=== PATIENT | male | born 1940 | race Caucasian/White ===

== ENCOUNTER 2020-07-15 10:18 | Outpatient (CLI) | payer MEDICARE, SELFPAY ==
--- NOTE | ~2020-07-15 | XR_ITS ---
XR hip RT 2V w AP pelvis DATE: 07/15/2020 10:39 INDICATION: Right hip posterior pain for 2 weeks. No injury. TECHNIQUE: AP pelvis. AP and lateral views of right hip. COMPARISON: None FINDINGS: Plate and screws are noted along the lower lumbar spine. There is degenerative disease at L 4-5 and L5-S1. Moderate osteopenia. The pubic symphysis and sacroiliac joints are intact. Hip joint spaces are symmetric and relatively p reserved. No pelvic fracture or bone destruction. No fracture or dislocation, avascular necrosis or bone destru ction of the right hip. IMPRESSION: Bilateral Steffee plates and screws in the lower lumbar spine Degenerative disease at L4-5 and L5-S1 Moderate osteopenia Reviewed, dictated and finalized at location A.
== END 2020-07-15 10:19 | disposition home or self-care (01) ==
PROVIDERS: PCP Family Medicine; Visit Provider Family Medicine
DX: M25.551 Pain in right hip (principal); Z96.7 Presence of other bone and tendon implants; M51.36 Other intervertebral disc degeneration, lumbar region; M85.88 Other specified disorders of bone density and structure, other site
CPT/HCPCS: 73502

== ENCOUNTER → 2020-08-04 10:47 | Outpatient (CLI) | payer MEDICARE, SELFPAY ==
--- NOTE | ~2020-08-04 | MR_ITS ---
EXAMINATION: MR hip RT wo con DATE: 08/04/2020 12:07 INDICATION: Right hip pain TECHNIQUE: Magnetic resonance imaging (MRI) of the right hip was performed without intravenous contr ast. Sequences included full-field axial PD-weighted FS FSE and T1-weighted FSE, coronal of the pelvi s with PD-weighted FS FSE, small field of view of the right hip with axial PD-weighted FS FSE, sagit diane PD-weighted FS FSE and coronal PD weighted FS FSE. Additional radial T1-weighted FGR oriented ort hogonal to the acetabular rim were obtained for evaluation of the labrum. COMPARISON: 07/15/2020 FINDINGS: Bones/labrum/cartilage: Alignment is normal. Metallic magnetic field artifact on either side of the lumbar spine correspondin g to bilateral plate and pedicle screw fixations for posterior spinal fusion. No fracture or patholog ic marrow replacing process. Polyarticular osteoarthritis, mild at the bilateral sacroiliac joints, m ild to moderate at the left hip with mild subarticular cystic change along the superolateral aspect o f the left acetabulum and severe at the right hip where there is full/near full-thickness chondral ul ceration with subarticular edema at the superolateral and more prominently anterosuperior aspect of t he femoral head and along the superolateral to anterosuperior aspect of the acetabulum with prominent subarticular cystic changes. There is thickening and amorphous increased signal throughout the anter ior to posterior superior right acetabular labrum consistent with labral degeneration. Fluid: Small to moderate sized right hip joint effusion and/or synovitis. There is a multilobulated para lab ral cyst along the anterosuperior rim of the acetabulum. Soft tissues: Normal and symmetric muscle bulk and signal in the pelvis and visualized proximal thighs. The iliopso as, gluteal and proximal hamstring tendons are normal. Limited evaluation of visceral organs of the p mary is unremarkable. No pathologically enlarged pelvic/inguinal lymphadenopathy. IMPRESSION: 1. 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 Reviewed, dictated and finalized at location A.
== END ==
PROVIDERS: PCP Family Medicine; Visit Provider Family Medicine
DX: M25.551 Pain in right hip (principal); M16.11 Unilateral primary osteoarthritis, right hip
CPT/HCPCS: 73721

== ENCOUNTER → 2020-08-09 14:21 | Outpatient (CLI) | payer MEDICARE, SELFPAY ==
--- NOTE | ~2020-08-09 | MR_ITS ---
EXAMINATION: MR lumbar spine wo con DATE: 08/09/2020 15:22 INDICATION: Lumbar radiculopathy TECHNIQUE: Magnetic resonance imaging (MRI) of the lumbar spine was performed without intravenous con trast. Sequences included sagittal T2-weighted FSE, sagittal T2-weighted FS FSE, sagittal T1-weighted FSE, and axial T2-weighted FSE. COMPARISON: CT abdomen and pelvis dated 09/18/2008 FINDINGS: L3 and L4 laminectomies and L3-L5 posterior spinal fusion with bilateral vertical akiko and pedicle scr ew fixation at each level. 2 mm anterolisthesis L3 on L4. Vertebral body heights are normal. Normal marrow signal. Severe disc height loss at L2-L3 and L4-L5. Moderate disc height loss at L3-L4. Mild t o moderate disc height loss at T11-T12 and T12-L1. Mild disc height loss at L1-L2. There are annular fissures from T12-L1 through L5-S1 excepting L3-L4. The conus medullaris terminates at T12-L1. There is normal signal in the caudal spinal cord. Paravertebral soft tissues are unremarkable. The followin g disc levels are specifically discussed: T12-L1: Disc is bulging with superimposed right subarticular zone disc extrusion which narrows the ri ght lateral recess. There is hypertrophy of the ligamentum flavum. There is moderate bilateral facet joint osteoarthritis. There is moderate bilateral neural foraminal stenosis. There is moderate to se jesus central canal stenosis. L1-L2: Disc is bulging. There is hypertrophy of the ligamentum flavum. There is moderate left and mo derate to severe right facet joint osteoarthritis. There is moderate bilateral neural foraminal steno sis. There is severe central canal stenosis. L2-L3: Disc is bulging. There is hypertrophy of the ligamentum flavum. There is moderate bilateral fa cet joint osteoarthritis. There is moderate bilateral neural foraminal stenosis. There is severe cent ral canal stenosis. L3-L4: Disc is mildly bulging. Posterior decompression with L3 and L4 laminectomies. Metallic magneti c field artifact from vertical akiko and pedicle screw fixation for posterior spinal fusion obscures th e presumably fused bilateral facet joints and distorts the bilateral neural foramina which both appea r mild to moderately narrowed. There is no central canal stenosis. L4-L5: Disc is mildly bulging. Posterior decompression with L4 laminectomy. Metallic magnetic field a rtifact from vertical akiko and pedicle screw fixation for posterior spinal fusion obscures the presuma monse fused bilateral facet joints and distorts the bilateral neural foramina. There appears be moderat e left and mild to moderate right neural foraminal stenosis. L5-S1: Disc is bulging. There is moderate bilateral facet joint osteoarthritis. There is a moderate b ilateral neural foraminal stenosis although again evaluation is somewhat limited by distortion from m agnetic field artifact related to the L5 pedicle screws. There is no central canal stenosis. IMPRESSION: 1. Severe lumbar spondylosis most notable for severe central canal stenosis at L1-L2 and L2-L3 and mo derate to severe stenosis at T12-L1. 2. L3 and L4 laminectomies and L3-L5 posterior spinal fusion with bilateral vertical akiko and pedicle screw fixation. Reviewed, dictated and finalized at location A. IMPRESSION: 1. Severe lumbar spondylosis most notable for severe central canal stenosis at L1-L2 and L2-L3 and moderate to severe stenosis at T12-L1. 2. L3 and L4 laminectomies and L3-L5 posterior spinal fusion with bilateral ardha tical akiko and pedicle screw fixation.
== END ==
PROVIDERS: PCP Family Medicine; Visit Provider Nurse Practitioner Adult Health
DX: M47.25 Other spondylosis with radiculopathy, thoracolumbar region (principal); M48.05 Spinal stenosis, thoracolumbar region
CPT/HCPCS: 72148

== ENCOUNTER 2021-03-03 09:47 | Outpatient (CLI) | payer MEDICARE, SELFPAY ==
--- NOTE | 2021-03-03 11:00 | ECG_ITS ---
Measurements Intervals [place] Rate: 65 P: 36 IL: 179 QRS: -83 QRSD: 165 T: -8 QT: 426 QTc: 445 Interpretive Statements SINUS RHYTHM LEFT AXIS DEVIATION RIGHT BUNDLE BRANCH BLOCK BASELINE ARTIFACT- I, II, III, AVR, AVL, AVF, V1-V6 ABNORMAL ECG Electronically Signed On 03-03-2021 11:36:52 CDT by Mino Bell D.O.
[2021-03-03 11:36] LABS: Basophils Absolute Auto 0.1 K/mm3 (0.0-0.1); Basophils Percent Auto 0.8 % (0.2-1.2); Eosinophils Absolute Auto 0.2 K/mm3 (0-0.3); Eosinophils Percent Auto 2.4 % (0-4.4); Hematocrit 48.6 % (42.0-52.0); Hemoglobin 16.5 g/dL (14.0-18.0); Immature Granulocyte Absolute 0.03 K/mm3 (0.00-0.031); Immature Granulocyte Percent A 0.5 % (0-0.5); Lymphocytes Absolute Auto 1.71 K/mm3 (0.9-3.2); Lymphocytes Percent Auto 25.9 % (18.3-44.2); Mean Corpuscular Hemoglobin 32.2 pg (26-34); Mean Corpuscular Volume 94.7 fl (80-100); Monocytes Absolute Auto 0.6 K/mm3 (0.1-0.6); Monocytes Percent Auto 8.5 % (2.6-8.5); Neutrophils Absolute Auto 4.1 K/mm3 (1.3-6.7); Neutrophils Percent Auto 61.9 % (45.5-73.1); Platelet Count Result 182 k/mm3 (150-375); Red Blood Count 5.13 M/mm3 (4.6-6.20); Red Cell Distribution Width 12.7 % (11.5-14.5); White Blood Count 6.6 K/mm3 (4.5-10.0)
[2021-03-03 11:44] LABS: Urine Cotinine NEGATIVE
[2021-03-03 11:45] LABS: Add Urine Microscopic? YES; Appearance Urine Clear (Clear); Bilirubin Urine Negative (Negative); Blood Urine 2+ (Negative); Color Urine Yellow (Yellow); Glucose Urine UA Negative (Negative); Ketones Urine Negative (Negative); Leukocyte Esterase Ur Negative LEU/UL (Negative); Mucus Urine Rare /lpf; Nitrate Urine Negative (Negative); Protein Urine Negative (Negative); RBC Urine >75 /hpf (0-2); Specific Grav Ur 1.019 (1.001-1.035); WBC Urine 0-3 /hpf
[2021-03-03 11:46] LABS: Albumin Level 4.4 g/dL (3.5-5.1); Anion Gap 8 mmol/L (8-16); Blood Urea Nitrogen 26 mg/dL (9-20); Carbon Dioxide 30 mmol/L (22-30); Chloride 101 mmol/L (98-107); Estimated Glomerular Filt Rate > 60; Glucose 156 mg/dL (75-110); Potassium 4.1 mmol/L (3.4-5.0); Sodium 139 mmol/L (137-145)
[2021-03-03 11:50] LABS: INR 0.9; Prothrombin Time 12.7 Seconds (11.1-14.7)
[2021-03-03 11:52] LABS: Partial Thromboplastin Time 32.5 SECONDS (22.3-36.8)
== END 2021-03-03 09:48 | disposition home or self-care (01) ==
LOC: ANHSURGERY 09:52
PROVIDERS: PCP Family Medicine; Visit Provider Orthopaedic Surgery
DX: M16.11 Unilateral primary osteoarthritis, right hip (principal); Z01.818 Encounter for other preprocedural examination; I45.10 Unspecified right bundle-branch block
CPT/HCPCS: 80048; 80307; 81001; 82040; 83036; 85025; 85610; 85730; 86850; 86900; 86901; 87081; 93005

== ENCOUNTER 2021-03-10 09:53 | Outpatient (CLI) | payer MEDICARE, SELFPAY ==
--- NOTE | ~2021-03-10 | NM_ITS ---
EXAMINATION: NM eric stress w perfusion EXAM DATE: 03/10/2021 13:18 INDICATION: Abnormal EKG. TECHNIQUE: Rest images were obtained following intravenous administration of 9.7 mCi Tc99m tetrofosmi n (Myoview). The patient was infused intravenously with Lexiscan (regadenoson). Then, 28.8 mCi Tc99m tetrofosmin (Myoview) was administered intravenously, and stress images were obtained. Data was recon structed into short axis and horizontal and vertical long axis SPECT images. Gated SPECT images were also obtained. There is no prior study for comparison. FINDINGS: There is no definite reversible or fixed perfusion abnormality to suggest ischemia or infar ction. There is normal left ventricular wall motion. End diastolic volume: 75 mL. End-systolic volume: 23 mL. Left ventricular ejection fraction: 69%. IMPRESSION: 1. Normal myocardial perfusion at rest and during stress. 2. Left ventricular ejection fraction measuring 69%. Reviewed, dictated and finalized at location B.
--- NOTE | 2021-03-10 10:23 | EST_ITS ---
Patient Info Name: Saravanan Ralph Age: 80 years : 1940 Gender: Male Ht: 67 in Wt: 212 lbs BSA: 2.17 m2 Exam Date: 03/10/2021 11:59 AM Exam Location: [facility] Stress Patient Status: Outpatient Admit Date: 03/10/2021 Staff Ordering Physician: Mino Bell DO Attending Provider: Mino Bell DO Exercise Technologist: Natalia Fraire RDCS Exercise Physician: Mino Bell DO Exam Type: CA stress eric w NM Study Info Indications R94.31 - Abnormal electrocardiogram ECG EKG A regadenoson stress test was performed. Summary 1. 1. Negative lexiscan stress test for ischemic ST changes by ECG criteria. 2. 2. Stable hemodynamics throughout the test. 3. 3. Nuclear scan to follow and will be reported separately. Please correlate with it. 4. 4. Patient informed of the above results. Protocol: Lexiscan Stress ECG Details Stage: REST Duration (min): 5 min : 49 sec HR (bpm): 62 SBP (mmHg): 132 DBP (mmHg): 84 Stage: REST Duration (min): 14 min : 0 sec HR (bpm): 64 SBP (mmHg): 132 DBP (mmHg): 84 Stage: STAGE 1 Duration (min): 1 min : 0 sec HR (bpm): 68 SBP (mmHg): 139 DBP (mmHg): 90 Stage: RECOVERY Duration (min): 1 min : 0 sec HR (bpm): 89 SBP (mmHg): 126 DBP (mmHg): 79 Stage: RECOVERY Duration (min): 2 min : 0 sec HR (bpm): 90 SBP (mmHg): 126 DBP (mmHg): 79 Stage: RECOVERY Duration (min): 3 min : 0 sec HR (bpm): 80 SBP (mmHg): 129 DBP (mmHg): 79 Stage: RECOVERY Duration (min): 4 min : 0 sec HR (bpm): 78 SBP (mmHg): 129 DBP (mmHg): 79 Stage: RECOVERY Duration (min): 5 min : 0 sec HR (bpm): 74 SBP (mmHg): 118 DBP (mmHg): 77 Stage: RECOVERY Duration (min): 6 min : 0 sec HR (bpm): 71 SBP (mmHg): 118 DBP (mmHg): 77 Stage: RECOVERY Duration (min): 6 min : 58 sec HR (bpm): 74 SBP (mmHg): 125 DBP (mmHg): 75 Rest HR: 64 bpm Peak HR: 91 bpm Rest Sys BP: 132 mmHg Peak Sys BP: 139 mmHg Max Pred HR: 142 bpm % Max Pred HR: 64 % Target HR: 121 bpm Max RPP: 12,649 bpm*mmHg Termination Reason: Completed protocol Cardiac Symptoms: Shortness of breath Total Time: 1 min : 0 sec Rest Kwon BP: 84 mmHg Peak Kwon BP: 90 mmHg Total Dose: 0.4 mg Resting ECG Sinus rhythm, RBBB, LAFB. Stress ECG No ST changes. Arrhythmias None. Report Signatures
== END 2021-03-10 09:54 | disposition home or self-care (01) ==
PROVIDERS: PCP Family Medicine; Visit Provider Internal Medicine Cardiovascular Disease
DX: Z01.810 Encounter for preprocedural cardiovascular examination (principal); R94.31 Abnormal electrocardiogram [ECG] [EKG]
CPT/HCPCS: 78452; 93017; A9502; J2785

== ENCOUNTER → 2021-03-12 01:02 | Outpatient (CLI) | payer MEDICARE, SELFPAY ==
[2021-03-13 14:52] LABS: SARS-CoV-2 RNA PCR Negative
== END ==
PROVIDERS: PCP Family Medicine; Visit Provider Orthopaedic Surgery
DX: Z01.812 Encounter for preprocedural laboratory examination (principal); Z20.822 Contact with and (suspected) exposure to COVID-19
CPT/HCPCS: C9803; U0003; U0005

== ENCOUNTER 2021-03-17 18:36 | Observation (INO) | payer MEDICARE, SELFPAY ==
[2021-03-03 10:10] VITALS: BMI 26.7
[2021-03-03 10:58] VITALS: BP 140/83; PULSE 69; RESP 16; TEMP 36.7; O2SAT 98
[2021-03-16] VITALS (13 sets, daily range): BP systolic 98–156; BP diastolic 56–88; PULSE 61–99; RESP 11–16; TEMP 35.6–36.6; O2SAT 95–100; BMI 26.5
[2021-03-16] MEDS: ACETAMINOPHEN 500 MG TABLET 1000 MG PO (06:53)
[2021-03-16 07:11] LABS: Glucose Point of Care 140 (65-105)
--- NOTE | 2021-03-16 07:11 | WPDANESEPPF ---
Anes - Initial Pre Proc Eval Procedure: Operation Date: 03/16/21 07:30 Proposed Procedures p Right Total Hip Arthroplasty - Chris Presley MD Date/Time: 03/16/21 07:11 Surgeon: Chris Presley MD Pre Op Diagnosis: Right Hip DJD Patient Data Age: 80 Gender: M Height: 6 ft 4 in Weight: 98.8 kg Last Vital Signs Temp 36.6 C 03/16/21 06:38 Pulse 99 03/16/21 06:38 Resp 16 03/16/21 06:38 BP 156/80 H 03/16/21 06:38 Pulse Ox 97 03/16/21 06:38 Allergies Allergy/AdvReac Type Severity Reaction Status Date / Time No Known Allergies Allergy Mild Verified 03/16/21 06:47 Home Medications Medication Instructions Recorded Confirmed Type potassium citrate 10 mEq (1,080 10 meq PO TID 10/01/19 03/16/21 History mg) tablet,extended release amlodipine 10 mg tablet 10 mg PO DAILY 07/14/20 03/16/21 History enalapril maleate 20 mg tablet 20 mg PO DAILY #90 tablet 07/14/20 03/16/21 Rx multivitamin 1 cap PO DAILY 09/13/20 03/16/21 History chlorhexidine gluconate 4 % 1 applic TOPICAL ONCE #237 ml 01/17/21 03/16/21 Rx topical liquid gabapentin 300 mg capsule 300 mg PO TID #270 cap 01/25/21 03/16/21 Rx acetaminophen [Acetaminophen Extra 1,000 mg PO PRN PRN 03/03/21 03/16/21 History Strength] amitriptyline 10 mg PO HS 03/03/21 03/16/21 History atorvastatin 80 mg PO HS 03/03/21 03/16/21 History fluticasone propionate [Allergy 2 spray INTRANASAL PRN PRN 03/03/21 03/16/21 History Relief (fluticasone)] meloxicam 15 mg PO PRN PRN 03/03/21 03/16/21 History metformin 2,000 mg PO QPM 03/03/21 03/16/21 History metoprolol succinate 150 mg PO HS 03/03/21 03/16/21 History tamsulosin 0.4 mg PO HS 03/03/21 03/16/21 History Laboratory Tests 03/16/21 07:06 POC Capillary Glucose 140 mg/dl H mg/dl (65-105) Patient hx anesthesia problems: none Family hx anesthesia problems: none PMFSH Past Medical History Medical History Abnormal EKG Acute right hip pain 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 urinary tract symptoms COVID-19 (06/10/20) Diabetes Diverticulosis Encounter for screening laboratory testing for COVID-19 virus High cholesterol Hypertension Lab test positive for detection of COVID-19 virus Neoplasm of skin of cheek Seborrheic dermatitis Skin cancer Vision changes Surgical History Surgical History History of cataract surgery History of fusion of cervical spine History of lumbar fusion Family History Family History Mother Patient's mother is , Onset Age: 89 Father Cerebrovascular accident, Onset Age: 73 Other Diabetes mellitus Heart disease Hypertension Social History Social History Smoking packs per day: 1 Smoking cigarettes per day: 20.0 Years smoked: 15 Smoking pack-years: 15.00 Smoking status: Former smoker Tobacco type: cigarettes Smoking end date: 03/05/70 Additional smoking assessment comments: DENIES ANY FORM OF TOBACCO USE Alcohol intake: never Substance use: never Substance use type: does not use Living arrangements: with family Spiritual care concerns: No Anes - Eval Final PreProcedure Day of Procedure 03/16/21 07:11 Patient weight: normal Heart: regular rate and rhythm Lungs: clear to auscultation Airway: Mallampati scale class II Neurological: alert and oriented Last oral intake: >/= 8 hours ASA classification: III Emergent: no Anesthetic plan: proceed Anesthesia type and monitoring: general ETT and standard monitoring Informed Consent: The patient's anesthetic plan and its attendant risks and benefits were discussed with the patient/family/POA. Questions were solicited and answers provided to the satisfaction of the patient/family/POA.
--- NOTE | 2021-03-16 07:20 | WPDHPUPDATE1 ---
History and Physical Update Update Date/Time: 03/16/21 07:20 History and Physical has been reviewed, including an updated exam of the patient. There are NO changes in the patient's condition. Risks, benefits, and alternatives have been discussed and questions answered. Patient agrees to proceed with procedure.
[2021-03-16] MEDS: TRANEXAMIC ACID 1,000MG/ISO100 1,000 MG/100 ML BAG 200 MG IVPB (07:25)
[2021-03-16] MEDS: LACTATED RINGERS 1,000 ML 30 ML IV CONT ×2 (07:30→11:27)
[2021-03-16] MEDS: ceFAZolin 2 GM/D5W 50 ML 2 GM/50 ML BAG IVPB ×3 (07:32→22:53)
--- NOTE | 2021-03-16 11:29 | PM.PROC ---
Procedure Note - Detailed Date of procedure: 03/16/21 Pre-op diagnosis: Right Hip DJD RIGHT HIP DJD Post-op diagnosis: same Procedure performed: R MARY Description of procedure: THE PATIENT WAS TAKEN TO THE OPERATING ROOM IN STABLE CONDITION. HE WAS PLACED IN THE LATERAL DECUBITUS AND THE RIGHT LOWER EXTREMITY WAS PREPPED AND DRAPED IN THE STERILE FASHION. INCISION WAS MADE IN THE POSTERIOR LATERAL SIDE OF THE HIP, DOWN TO THE FASCIA LAYER. THE FASCIA WAS INCISED. THE HIP WAS EXPOSED. THE SHORT EXTERNAL ROTATORS WERE EXPOSED AND THE SCIATIC NERVE WAS VISUALIZED. THE CAPSULE WAS INCISED EXPOSING THE HIP JOINT. THE HIP WAS DISLOCATED. AN OSTEOTOMY WAS MADE TO THE FEMORAL NECK ABOUT 1 CM PROXIMAL TO THE LESSER TROCHANTER. THE ACETABULUM WAS EXPOSED. THERE WAS SEVERE DJD SEEN. THE ACETABULUM WAS REAMED TO 53 MM. A 53 MM TRIAL WAS PLACED IN 35 DEG OF ABDUCTION AND ANTEVERSION WAS IN ALIGNMENT WITH THE TRANS ACETABULAR LIGAMENT. THE FIT WAS EXCELLENT. THE TRIAL WAS REMOVED. MULTIPLE BONE CYSTS WERE CURETTED AND FILLED WITH BONE GRAFT. THEN REVERSE REAMING WAS PREFORMED UNTIL THE GRAFT WAS FLUSH WITH THE ACETABULUM. A 54 MM BIOMET G7 COMPONENT WAS THEN TAPPED IN TO PLACE IN 35 DEG OF ABDUCTION AND ANTEVERSION IN ALIGNMENT WITH THE TRANSVERSE ACETABULAR LIGAMENT. THE ACETABULAR LINER WAS PLACED AND CHECKED FOR STABILITY. NEXT THE FEMUR WAS PREPARED WITH INITIAL CANAL FINDER THEN SEQUENTIAL REAMING AND THEN BROACHING TILL AN 11 BIMETRIC BROACH FIT WELL IN 15 DEG OF ANTE VERSION. A +9 HIGH OFFSET NECK WITH 36 MM HEAD TRIAL WAS PLACED. THE ENRIQUE TEST WAS EXCELLENT AND THE STABILITY IN FLEXION AND ROTATION WAS EXCELLENT. LEG LENGTHS WERE GROSSLY EQUAL. TRIALS WERE REMOVED. A BIOMET BIMETRIC 11 STEM WAS PLACED WITH A STANDARD OFFSET NECK. THE FIT WAS EXCELLENT IN 15 DEG OF ANTEVERSION. A +9 COBALT CHROME 36 MM FEMORAL HEAD WAS PLACED. THE HIP WAS TRIALED AND THE STABILITY WAS EXCELLENT WERE THE LEG LENGTHS AND THE SCHUK TEST. THE WOUND WAS IRRIGATED WITH STERILE BETADINE AND WATER FOR 3 MIN. THEN WASHED AGAIN. THE CAPSULE AND THE EXTERNAL ROTATORS WERE APPROXIMATED WITH NUMBER 1 VICRYL. THE FASCIA WITH No 2 QUIL AND THE SUB CUTANEOUS LAYER WITH 2-0 ABSORBABLE SUTURE WITH A RUNNING 3-0 SUBCUTICULAR LAYER WELL. DERMABOND WAS PLACED AND STERILE DRESSING WAS APPLIED. PATIENT WAS PLACED BACK ON TO THE SUPINE POSITION AND WAS EXTUBATED. Anesthesia: GETA Surgeon: Chris Presley MD Estimated blood loss (mL): 450 Drains: No Complications: No immediate complications Condition: stable Disposition: PACU
--- NOTE | 2021-03-16 12:18 | SUR.PHASEI ---
121 sbar faxed floor notified
--- NOTE | 2021-03-16 12:50 | ADMGEN ---
This patient, Saravanan Ralph, was admitted to Medical Room 243-. Patient/family oriented to hospital policies and general routines including ID bracelet, bed and alarms, visiting hours, pain management, procedures, bathroom and other care routines, personal items, smoking policy, room service/diet, and visiting hours. Information on how to activate the Rapid Response Team has been discussed. Patient/Family are encouraged to report perceived risks to care and to ask questions if they do not understand what they are told or what they should do.
[2021-03-16 14:16] LABS: Glucose Point of Care 174 (65-105)
[2021-03-16] MEDS: HYDROcodone/acetaminophen (*CRX) 5-325 MG TABLET 1 TAB PO ×3 (14:21→22:53)
[2021-03-16] MEDS: POTASSIUM CITRATE 5 MEQ TAB CR 10 MEQ PO ×2 (14:22→17:55)
[2021-03-16] MEDS: GABAPENTIN 300 MG CAPSULE PO ×2 (14:22→17:55)
[2021-03-16 15:18] LABS: Hematocrit 42.2 % (42.0-52.0); Hemoglobin 13.8 g/dL (14.0-18.0)
[2021-03-16 15:36] LABS: Glucose Point of Care 183 (65-105)
--- NOTE | 2021-03-16 17:22 | P.DS_ITS ---
DS: Summary Time Spent with Patient Time attestation: Total time spent providing and/or coordinating discharge ser vices: DS: Data Data Completed and Pending Labs on day of discharge: Labs from last 24 hours 03/16/21 03/16/21 03/16/21 14:48 13:11 11:43 Hgb 13.8 L Hct 42.2 POC Capillary Glucose 174 H 183 H 03/16/21 07:06 Hgb Hct POC Capillary Glucose 140 H Discharge Plan Discharge Discharge Medications: No Action amlodipine 10 mg tablet 10 mg PO DAILY RF: 0 enalapril maleate 20 mg tablet 20 mg PO DAILY Qty: 90 RF: 3 multivitamin Capsule 1 cap PO DAILY RF: 0 atorvastatin 80 mg tablet 80 mg PO HS RF: 0 meloxicam 15 mg tablet 15 mg PO PRN PRN (Reason: pain) RF: 0 metoprolol succinate 100 mg tablet extended release 24 hr 150 mg PO HS RF: 0 tamsulosin 0.4 mg capsule 0.4 mg PO HS RF: 0 amitriptyline 10 mg tablet 10 mg PO HS RF: 0 fluticasone propionate [Allergy Relief (fluticasone)] 50 mcg/actuation spray,suspension 2 spray intranasal PRN PRN (Reason: Allergy Symptoms) RF: 0 metformin 500 mg tablet extended release 24 hr 2,000 mg PO QPM RF: 0 acetaminophen [Acetaminophen Extra Strength] 500 mg Tablet 1,000 mg PO PRN PRN (Reason: Pain) RF: 0 potassium citrate 10 mEq (1,080 mg) tablet extended release 10 meq PO TID RF: 0 chlorhexidine gluconate [Hibiclens] 4 % liquid 1 applic topical ONCE Qty: 237 RF: 0 gabapentin 300 mg capsule 300 mg PO TID Qty: 270 RF: 3 Attending physician on admission: Chris Presley
--- NOTE | 2021-03-16 17:23 | PM.IMCN ---
Assessment and Plan Assessment and plan (1) Abnormal EKG: Code(s): R94.31 - Abnormal electrocardiogram [ECG] [EKG] Status: Acute Assessment and Plan: Status post stress test before admission continue to monitor (2) Degenerative joint disease (DJD) of hip: Qualifiers: Osteoarthritis type: primary Laterality: right Qualified Code(s): M16.11 - Unilateral primary osteoarthritis, right hip Code(s): M16.9 - Osteoarthritis of hip, unspecified Status: Acute Assessment and Plan: Status post total hip arthroplasty pain control DVT prophylaxis per surgery (3) 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 urinary tract symptoms: Code(s): N40.0 - Benign prostatic hyperplasia without lower urinary tract symptoms Status: Acute Assessment and Plan: Continue home medication (4) Essential (primary) hypertension: Code(s): I10 - Essential (primary) hypertension Status: Acute Assessment and Plan: Continue amlodipine (5) Mixed hyperlipidemia: Code(s): E78.2 - Mixed hyperlipidemia Status: Acute Assessment and Plan: Continue statin (6) Peripheral polyneuropathy: Code(s): G62.9 - Polyneuropathy, unspecified Status: Acute Assessment and Plan: On gabapentin (7) Type 2 diabetes mellitus without complication, without long-term current use of insulin: Code(s): E11.9 - Type 2 diabetes mellitus without complications Status: Acute Assessment and Plan: Insulin sliding scale recommend DC metformin as associated with increased risk of lactic acidosis after surgery HPI Data of Consult Consult date: 03/16/21 Requesting Physician: Chris Presley MD Primary Care Provider: Kings Díaz MD Consult Narrative Reason for consult: Hypertension diabetes mellitus Narrative: Saravanan Ralph is a 80 year old male with past medical history of hypertension on amlodipine diabetes mellitus type 2 on metformin hyperlipidemia on statin patient complained of right hip pain failed outpatient therapy presented to the hospital for total hip arthroplasty during pre-surgical evaluation patient had abnormal EKG stress test was done was negative patient was cleared for surgery patient denies chest pain shortness of breath fever or chills patient had total hip arthroplasty recovering well after procedure Review of Systems Review of Systems: All systems reviewed & are unremarkable except as noted in HPI and below PMFSH Past Medical History Medical History Abnormal EKG Acute right hip pain 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 urinary tract symptoms COVID-19 (06/10/20) Diabetes Diverticulosis Encounter for screening laboratory testing for COVID-19 virus High cholesterol Hypertension Lab test positive for detection of COVID-19 virus Neoplasm of skin of cheek Seborrheic dermatitis Skin cancer Vision changes Surgical History Surgical History History of cataract surgery History of fusion of cervical spine History of lumbar fusion Family History Family History Mother Patient's mother is , Onset Age: 89 Father Cerebrovascular accident, Onset Age: 73 Other Diabetes mellitus Heart disease Hypertension Social History Social History Smoking packs per day: 1 Smoking cigarettes per day: 20.0 Years smoked: 15 Smoking pack-years: 15.00 Smoking status: Former smoker Tobacco type: cigarettes Smoking end date: 03/09/70 Additional smoking assessment comments: DENIES ANY FORM OF TOBACCO USE Alcohol intake: former Substance use: never Substance use type: does not use Living arrangements: with family Gender identity (if verbalized by the patient): Mal
[2021-03-16 18:19] LABS: Glucose Point of Care 176 (65-105)
[2021-03-16 19:35] LABS: Alanine Aminotransferase 19 U/L (4-50); Albumin Level 3.4 g/dL (3.5-5.1); Alkaline Phosphatase 47 U/L (38-126); Anion Gap 10 mmol/L (8-16); Aspartate Amino Transferase 48 U/L (17-59); Bilirubin,Total 0.7 mg/dL (0.2-1.3); Blood Urea Nitrogen 25 mg/dL (9-20); Calcium 8.3 mg/dL (8.4-10.2); Carbon Dioxide 19 mmol/L (22-30); Chloride 106 mmol/L (98-107); Estimated CRCL calculation 68 ml/min; Estimated Glomerular Filt Rate > 60; Glucose 168 mg/dL (75-110); Potassium 4.8 mmol/L (3.4-5.0); Sodium 135 mmol/L (137-145)
[2021-03-16 20:45] LABS: Basophils Percent Auto 0.2 % (0.2-1.2); Hematocrit 39.7 % (42.0-52.0); Hemoglobin 13.6 g/dL (14.0-18.0); Immature Granulocyte Absolute 0.05 K/mm3 (0.00-0.031); Immature Granulocyte Percent A 0.4 % (0-0.5); Mean Corpuscular HGB Conc 34.3 g/dl (32-36); Mean Corpuscular Hemoglobin 32.7 pg (26-34); Mean Corpuscular Volume 95.4 fl (80-100); Monocytes Absolute Auto 1.6 K/mm3 (0.1-0.6); Monocytes Percent Auto 13.1 % (2.6-8.5); Neutrophils Absolute Auto 9.8 K/mm3 (1.3-6.7); Neutrophils Percent Auto 78.3 % (45.5-73.1); Platelet Count Result 154 k/mm3 (150-375); Red Blood Count 4.16 M/mm3 (4.6-6.20); Red Cell Distribution Width 12.8 % (11.5-14.5); White Blood Count 12.5 K/mm3 (4.5-10.0)
[2021-03-16] MEDS: TAMSULOSIN HCL 0.4 MG CAPSULE PO (21:21)
[2021-03-16] MEDS: FAMOTIDINE 20 MG TABLET PO (21:21)
[2021-03-16] MEDS: ATORVASTATIN 40 MG TABLET 80 MG PO (21:21)
[2021-03-16] MEDS: METOPROLOL SUCCINATE EXT REL 50 MG TABCR 150 MG PO (21:21)
[2021-03-16] MEDS: AMITRIPTYLINE HCL 10 MG TABLET PO (21:22)
[2021-03-16 23:47] LABS: Glucose Point of Care 151 (65-105)
[2021-03-17] VITALS (8 sets, daily range): BP systolic 103–132; BP diastolic 60–85; PULSE 71–87; RESP 16–18; TEMP 36.1–36.7; O2SAT 92–98
--- NOTE | ~2021-03-17 | XR_ITS ---
EXAMINATION: XR hip RT min 2V DATE: 03/16/2021 11:42 INDICATION: Total right hip arthroplasty. Postop. TECHNIQUE: 2 views of right hip were obtained. COMPARISON: Right hip radiographs 03/03/2021 FINDINGS: There is a total right hip arthroplasty in near-anatomic alignment. No fracture. There is g as in the soft tissues, consistent with recent surgery. IMPRESSION: 1. Total right hip arthroplasty in near-anatomic alignment. Reviewed, dictated and finalized at location B.
--- NOTE | ~2021-03-17 | XR_ITS ---
EXAMINATION: XR surgery orthopedic DATE: 03/16/2021 10:45 INDICATION: Intraoperative evaluation during right total hip arthroplasty TECHNIQUE: Frontal view of the right hip was obtained. COMPARISON: None. FINDINGS: Intraoperative image during a right total hip arthroplasty demonstrate placement of an acetabular com ponent which appears in near anatomic alignment on the single image provided. A femoral broach is in place with the proximal tip centered over the acetabular component. Portions of the pelvis are obscu red by overlying a bolster. Additional retractors are seen at the operative bed. No fractures in the visualized bones. Postoperative changes in the lower lumbar spine including L4 laminectomy and workplace trainer and assessor ior spinal fusion with partially visualized plate and pedicle screws fixation at L5, L4 and extending cephalad towards the nonvisualized L3 segment. 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 IMPRESSION: 1. Expected appearance during right total hip arthroplasty. Reviewed, dictated and finalized at location A.
[2021-03-17 05:41] LABS: Basophils Percent Auto 0.2 % (0.2-1.2); Eosinophils Percent Auto 0.3 % (0-4.4); Hematocrit 38.4 % (42.0-52.0); Hemoglobin 12.6 g/dL (14.0-18.0); Immature Granulocyte Absolute 0.03 K/mm3 (0.00-0.031); Immature Granulocyte Percent A 0.3 % (0-0.5); Immature Platelet Fraction Pct 6.8 % (0.9-11.2); Lymphocytes Absolute Auto 1.17 K/mm3 (0.9-3.2); Lymphocytes Percent Auto 11.9 % (18.3-44.2); Mean Corpuscular HGB Conc 32.8 g/dl (32-36); Mean Corpuscular Hemoglobin 32.7 pg (26-34); Mean Corpuscular Volume 99.7 fl (80-100); Mean Platelet Volume 11.1 fl (7.4-10.4); Monocytes Absolute Auto 1.7 K/mm3 (0.1-0.6); Monocytes Percent Auto 16.8 % (2.6-8.5); Neutrophils Percent Auto 70.5 % (45.5-73.1); Platelet Count Result 149 k/mm3 (150-375); Red Blood Count 3.85 M/mm3 (4.6-6.20); Red Cell Distribution Width 13.2 % (11.5-14.5); White Blood Count 9.9 K/mm3 (4.5-10.0)
[2021-03-17 05:53] LABS: Anion Gap 4 mmol/L (8-16); Blood Urea Nitrogen 26 mg/dL (9-20); Calcium 8.3 mg/dL (8.4-10.2); Carbon Dioxide 29 mmol/L (22-30); Chloride 102 mmol/L (98-107); Estimated CRCL calculation 68 ml/min; Estimated Glomerular Filt Rate > 60; Glucose 156 mg/dL (75-110); Sodium 135 mmol/L (137-145)
[2021-03-17] MEDS: ceFAZolin 2 GM/D5W 50 ML 2 GM/50 ML BAG IVPB (05:59)
[2021-03-17] MEDS: GABAPENTIN 300 MG CAPSULE PO ×3 (08:07→17:12)
[2021-03-17] MEDS: POTASSIUM CITRATE 5 MEQ TAB CR 10 MEQ PO ×3 (08:07→17:12)
[2021-03-17] MEDS: ASPIRIN 325 MG ENTERIC TABLET 650 MG PO (08:07)
[2021-03-17] MEDS: amLODIPine BESYLATE 5 MG TABLET 10 MG PO (08:08)
[2021-03-17] MEDS: FAMOTIDINE 20 MG TABLET PO ×2 (08:08→20:07)
[2021-03-17] MEDS: ENALAPRIL MALEATE 10 MG TABLET 20 MG PO (08:08)
[2021-03-17] MEDS: CELECOXIB 200 MG CAPSULE PO (08:08)
[2021-03-17] MEDS: HYDROcodone/acetaminophen (*CRX) 5-325 MG TABLET 1 TAB PO (08:09)
--- NOTE | 2021-03-17 09:12 | PM.PNORT ---
Progress Note: A&P Assessment and Plan (1) S/P total hip arthroplasty: Qualifiers: Laterality: right Qualified Code(s): Z96.641 - Presence of right artificial hip joint <Meghan RoxanaJUVENAL Baugh - Last Filed: 03/17/21 09:19> Code(s): Z96.649 - Presence of unspecified artificial hip joint <MeghanJUVENAL Montes - Last Filed: 03/17/21 09:19> Status: Acute <Meghan RoxanaJUVENAL Baugh - Last Filed: 03/17/21 09:19> Assessment and Plan: POD #1: Right MARY Continue PT/OT. WBAT. Walker. Fall Risk. Continue pain control. Ice lateral hip. SCDs. Incentive spirometry. DVT prophylaxis. Monitor dressing. Change prior to discharge. Dispo: Home with Home Health pending progress with PT/OT. <JUVENAL Loaiza - Last Filed: 03/17/21 09:19> Subjective Subjective Date/Time Seen: 03/17/21 09:12 POD #1: Right MARY No new complaints. Limitations with dorsiflexion/eversion postoperatively. Tolerating meals. Working well with OT. Awaiting PT this AM. Pain well controlled. <JUVENAL Loaiza - Last Filed: 03/17/21 09:19> Review of Systems Review of Systems: All systems reviewed & are unremarkable except as noted in HPI and below <JUVENAL Loaiza - Last Filed: 03/17/21 09:19> Constitutional: Constitutional: Denies chills, Denies fever(s), Denies headache(s), Denies lethargy and Reports weakness <JUVENAL Loaiza - Last Filed: 03/17/21 09:19> ENT: Denies headache(s) <JUVENAL Loaiza - Last Filed: 03/17/21 09:19> Cardiovascular: Cardiovascular: Denies chest pain, Denies diaphoresis, Denies lightheadedness, Denies palpitations, Denies dyspnea and Denies dyspnea on exertion <JUVENAL Loaiza - Last Filed: 03/17/21 09:19> Respiratory: Respiratory: Denies cough, Denies dyspnea and Denies dyspnea on exertion <Meghan Heller [facility] - Last Filed: 03/17/21 09:19> Gastrointestinal: Gastrointestinal: Denies constipation, Denies diarrhea, Denies nausea and Denies vomiting <Meghan Heller [facility] - Last Filed: 03/17/21 09:19> Genitourinary: Genitourinary: Denies dysuria, Reports urinary frequency and Denies urinary hesitancy <Meghan Heller [facility] - Last Filed: 03/17/21 09:19> Musculoskeletal: Musculoskeletal: Reports joint swelling (Right Hip ) and Reports limited range of motion (Right Hip due to recent surgery ) <Meghan Heller [facility] - Last Filed: 03/17/21 09:19> Neurologic: Denies headache(s) and Reports weakness <Meghan Heller [facility] - Last Filed: 03/17/21 09:19> Endocrine: Endocrine: Denies palpitations <Meghan Heller [facility] - Last Filed: 03/17/21 09:19> Exam Const: General: comfortable and no acute distress <Meghan Heller [facility] - Last Filed: 03/17/21 09:19> Resp: Effort & Inspection: normal respiratory effort <Meghan Heller [facility] - Last Filed: 03/17/21 09:19> Cardio: Rate: regular rate <Meghan Heller [facility] - Last Filed: 03/17/21 09:19> Rhythm: regular rhythm <Meghan Heller [facility] - Last Filed: 03/17/21 09:19> GI: Inspection: non-distended <Meghan Heller [facility] - Last Filed: 03/17/21 09:19> Skin: General skin exam: normal color <Meghan Heller [facility] - Last Filed: 03/17/21 09:19> Other: Incision right hip c/d/i. Surrounding tissue without redness/warmth. Mild swelling consistent with recent surgery. No drainage. <Meghan Heller [facility] - Last Filed: 03/17/21 09:19> Neuro: Cognition (Neuro): normal cognition <JUVENAL Loaiza - Last Filed: 03/17/21 09:19> Speech: normal speech <JUVENAL Loaiza - Last Filed: 03/17/21 09:19> Other: Strength RLE decreased due to recent surgery. +plantarflexion/inversion. weakness with dorsiflexion/eversion. Moves toes. Sensation intact to light touch. <JUVENAL Loaiza - Last Filed: 03/17/21 09:19> Extrem: Right lower extremity: normal to inspection, normal capillary refill, hip/thigh Details: tenderness Location: of the hip (Thigh soft ) Location: laterally and anteriorly, swelling Location: at the hip, abnormal ROM (limi
--- NOTE | 2021-03-17 09:45 | PM.IMPN ---
Progress Note: A&P Assessment and Plan (1) Abnormal EKG: Code(s): R94.31 - Abnormal electrocardiogram [ECG] [EKG] Status: Acute Assessment and Plan: Status post stress test before admission continue to monitor (2) Degenerative joint disease (DJD) of hip: Qualifiers: Osteoarthritis type: primary Laterality: right Qualified Code(s): M16.11 - Unilateral primary osteoarthritis, right hip Code(s): M16.9 - Osteoarthritis of hip, unspecified Status: Acute Assessment and Plan: Status post total hip arthroplasty pain control DVT prophylaxis per surgery (3) 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 urinary tract symptoms: Code(s): N40.0 - Benign prostatic hyperplasia without lower urinary tract symptoms Status: Acute Assessment and Plan: Continue home medication (4) Essential (primary) hypertension: Code(s): I10 - Essential (primary) hypertension Status: Acute Assessment and Plan: Continue amlodipine (5) Mixed hyperlipidemia: Code(s): E78.2 - Mixed hyperlipidemia Status: Acute Assessment and Plan: Continue statin (6) Peripheral polyneuropathy: Code(s): G62.9 - Polyneuropathy, unspecified Status: Acute Assessment and Plan: On gabapentin (7) Type 2 diabetes mellitus without complication, without long-term current use of insulin: Code(s): E11.9 - Type 2 diabetes mellitus without complications Status: Acute Assessment and Plan: Okay to resume metformin in a.m. Subjective Date/time seen: 03/17/21 09:45 Interval history: Patient seen and examined Patient feels better today tolerated hip arthroplasty well Patient denies fever headache chest pain shortness of breath I am seeing the patient for diabetes Exam Narrative: Exam Narrative: Alert Chest no wheeze crackles Abdomen nontender nondistended CVS S1 + S2 Lower extremity edema Objective Data Vital Signs Vital Signs: Vital Signs - 24 hr 03/16/21 11:35 03/16/21 11:55 03/16/21 12:10 Temperature 97 F L Pulse Rate 68 62 62 Respiratory Rate 12 11 L 12 Blood Pressure 107/59 L 98/56 L 98/58 L Pulse Oximetry 100 100 98 03/16/21 12:25 03/16/21 12:50 03/16/21 13:05 Temperature 96.4 F L 96.1 F L Pulse Rate 69 68 67 Respiratory Rate 16 14 16 Blood Pressure 109/65 109/64 122/64 Pulse Oximetry 97 96 99 03/16/21 13:35 03/16/21 14:00 03/16/21 15:15 Temperature 96.2 F L 97.1 F L Pulse Rate 65 61 Respiratory Rate 16 14 Blood Pressure 116/67 127/61 Pulse Oximetry 99 99 97 03/16/21 18:00 03/16/21 21:21 03/16/21 22:26 Temperature 97.5 F L 97.8 F Pulse Rate 75 76 78 Respiratory Rate 14 16 Blood Pressure 127/88 132/88 Pulse Oximetry 96 95 03/17/21 02:00 03/17/21 06:26 Temperature 97.5 F L 98.1 F Pulse Rate 79 82 Respiratory Rate 16 16 Blood Pressure 131/68 116/64 Pulse Oximetry 96 93 Intake/Output Intake/Output: Intake & Output 03/14/21 03/15/21 03/16/21 03/17/21 23:59 23:59 23:59 23:59 Intake Total 1190 700 Output Total 100 1140 Balance 1090 -440 Meds/Results Medications: Active Medications Generic Name Dose Route Start Last Admin Trade Name Freq PRN Reason Stop Dose Admin Acetaminophen 650 mg 03/16/21 12:41 Acetaminophen 325 Mg Tablet PO Q6H PRN Mild Pain (1-3) or Fever Hydrocodone Bitart/Acetaminophen 1 tab 03/16/21 12:41 03/17/21 08:09 Hydrocodone/Acetaminophen (*Crx) 5-325 Mg Tablet PO 1 tab Q3H PRN Administration Pain Rated 4-6 Al Hydrox/Mg Hydrox/Simethicone 30 ml 03/16/21 12:41 Mag Hydrox/Al Hydrox/Simeth 30 Ml Udc PO Q6H PRN Indigestion Amitriptyline HCl 10 mg 03/16/21 21:00 03/16/21 21:22 Amitriptyline Hcl 10 Mg Tablet PO 10 mg HS LEANN Administration Amlodipine Besylate 10 mg 03/17/21 09:00 03/17/21 08:08 Amlodipine Besylate 5 Mg Tablet PO 10 mg DAILY LEANN Administration Aspirin 650 mg 03/17/21 09:00
[2021-03-17 10:06] LABS: Glucose Point of Care 145 (65-105)
[2021-03-17 11:27] LABS: Glucose Point of Care 190 (65-105)
[2021-03-17] MEDS: ACETAMINOPHEN 325 MG TABLET 650 MG PO (14:16)
--- NOTE | 2021-03-17 17:14 | PC.NURSE ---
pt has not urinated but wants to wait until after he eats dinner for bladder scan he state he would like to then stand and attempt to use the urinal, has no urge to urinate at this time
[2021-03-17 17:28] LABS: Basophils Percent Auto 0.3 % (0.2-1.2); Eosinophils Percent Auto 0.2 % (0-4.4); Hematocrit 38.8 % (42.0-52.0); Hemoglobin 12.9 g/dL (14.0-18.0); Immature Granulocyte Absolute 0.04 K/mm3 (0.00-0.031); Immature Granulocyte Percent A 0.3 % (0-0.5); Immature Platelet Fraction Pct 8.1 % (0.9-11.2); Lymphocytes Absolute Auto 1.59 K/mm3 (0.9-3.2); Lymphocytes Percent Auto 13.9 % (18.3-44.2); Mean Corpuscular HGB Conc 33.2 g/dl (32-36); Mean Corpuscular Hemoglobin 32.7 pg (26-34); Mean Corpuscular Volume 98.5 fl (80-100); Mean Platelet Volume 11.2 fl (7.4-10.4); Monocytes Absolute Auto 1.8 K/mm3 (0.1-0.6); Monocytes Percent Auto 15.3 % (2.6-8.5); Platelet Count Result 149 k/mm3 (150-375); Red Blood Count 3.94 M/mm3 (4.6-6.20); Red Cell Distribution Width 13.4 % (11.5-14.5); White Blood Count 11.5 K/mm3 (4.5-10.0)
[2021-03-17 17:37] LABS: Alanine Aminotransferase 17 U/L (4-50); Albumin Level 3.4 g/dL (3.5-5.1); Alkaline Phosphatase 45 U/L (38-126); Anion Gap 3 mmol/L (8-16); Aspartate Amino Transferase 46 U/L (17-59); Bilirubin,Total 0.6 mg/dL (0.2-1.3); Blood Urea Nitrogen 27 mg/dL (9-20); Calcium 8.3 mg/dL (8.4-10.2); Carbon Dioxide 33 mmol/L (22-30); Chloride 99 mmol/L (98-107); Estimated CRCL calculation 43 ml/min; Estimated Glomerular Filt Rate 42; Glucose 133 mg/dL (75-110); Potassium 3.9 mmol/L (3.4-5.0); Sodium 135 mmol/L (137-145)
[2021-03-17 18:00] LABS: Glucose Point of Care 127 (65-105)
[2021-03-17] MEDS: ATORVASTATIN 40 MG TABLET 80 MG PO (20:06)
[2021-03-17] MEDS: METOPROLOL SUCCINATE EXT REL 50 MG TABCR 150 MG PO (20:06)
[2021-03-17] MEDS: AMITRIPTYLINE HCL 10 MG TABLET PO (20:06)
[2021-03-17] MEDS: TAMSULOSIN HCL 0.4 MG CAPSULE PO (20:06)
[2021-03-17 20:17] LABS: Glucose Point of Care 195 (65-105)
[2021-03-18 08:00] VITALS: BP 124/68; PULSE 86; RESP 18; TEMP 36.2; O2SAT 96
[2021-03-18 08:16] LABS: Glucose Point of Care 159 (65-105)
[2021-03-18] MEDS: amLODIPine BESYLATE 5 MG TABLET 10 MG PO (08:48)
[2021-03-18] MEDS: ASPIRIN 325 MG ENTERIC TABLET 650 MG PO (08:48)
[2021-03-18] MEDS: DOCUSATE SODIUM 100 MG CAPSULE PO ×2 (08:49→16:41)
[2021-03-18] MEDS: POTASSIUM CITRATE 5 MEQ TAB CR 10 MEQ PO ×3 (08:49→16:41)
[2021-03-18] MEDS: CELECOXIB 200 MG CAPSULE PO (08:49)
[2021-03-18] MEDS: FAMOTIDINE 20 MG TABLET PO ×2 (08:49→20:32)
[2021-03-18] MEDS: GABAPENTIN 300 MG CAPSULE PO ×3 (08:49→16:41)
[2021-03-18] MEDS: ENALAPRIL MALEATE 10 MG TABLET 20 MG PO (08:49)
[2021-03-18] MEDS: ACETAMINOPHEN 325 MG TABLET 650 MG PO ×2 (08:50→16:41)
[2021-03-18 11:39] LABS: Glucose Point of Care 170 (65-105)
--- NOTE | 2021-03-18 12:25 | PM.IMPN ---
Progress Note: A&P Assessment and Plan (1) Abnormal EKG: Code(s): R94.31 - Abnormal electrocardiogram [ECG] [EKG] Status: Acute Assessment and Plan: Pt is being monitored in the hospital (2) Degenerative joint disease (DJD) of hip: Qualifiers: Osteoarthritis type: primary Laterality: right Qualified Code(s): M16.11 - Unilateral primary osteoarthritis, right hip Code(s): M16.9 - Osteoarthritis of hip, unspecified Status: Acute Assessment and Plan: Status post total hip arthroplasty continue pain control DVT prophylaxis per surgery (3) 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 urinary tract symptoms: Code(s): N40.0 - Benign prostatic hyperplasia without lower urinary tract symptoms Status: Acute Assessment and Plan: Continue home medication pt is with urinary catheter, voiding trial today, home tomorrow. (4) Essential (primary) hypertension: Code(s): I10 - Essential (primary) hypertension Status: Acute Assessment and Plan: Continue amlodipine (5) Mixed hyperlipidemia: Code(s): E78.2 - Mixed hyperlipidemia Status: Acute Assessment and Plan: Continue statin (6) Peripheral polyneuropathy: Code(s): G62.9 - Polyneuropathy, unspecified Status: Acute Assessment and Plan: On gabapentin (7) Type 2 diabetes mellitus without complication, without long-term current use of insulin: Code(s): E11.9 - Type 2 diabetes mellitus without complications Status: Acute Assessment and Plan: Continue metformin Subjective Date/time seen: 03/18/21 12:25 Interval history: 80year old man Pt sp total R hip arthroplasty, post op day 2 Pt having some problems with urinary retention and constipation. We will do voiding trial today and give him some laxatives, hopeful DC home tomorrow. Review of Systems Review of Systems: All systems reviewed & are unremarkable except as noted in HPI and below Exam Narrative: Exam Narrative: Alert Chest no wheeze or crackles clear lungs Abdomen nontender nondistended with urinary catheter in situ CVS S1 + S2 Lower extremity edema Objective Data Vital Signs Vital Signs: Vital Signs - 24 hr 03/17/21 14:00 03/17/21 18:00 03/17/21 20:06 Temperature 36.1 C L 36.6 C Pulse Rate 84 84 80 Respiratory Rate 16 16 Blood Pressure 132/62 103/85 Pulse Oximetry 98 98 03/17/21 22:00 03/17/21 22:15 03/18/21 08:00 Temperature 36.2 C L 36.2 C L Pulse Rate 87 86 Respiratory Rate 18 18 Blood Pressure 123/60 124/68 Pulse Oximetry 96 96 96 Intake/Output Intake/Output: Intake & Output 03/15/21 03/16/21 03/17/21 03/18/21 23:59 23:59 23:59 23:59 Intake Total 1190 1580 350 Output Total 100 1840 1400 Balance 1095 -927 -9952 Meds/Results Medications: Active Medications Generic Name Dose Route Start Last Admin Trade Name Freq PRN Reason Stop Dose Admin Acetaminophen 650 mg 03/16/21 12:41 03/18/21 08:50 Acetaminophen 325 Mg Tablet PO 650 mg Q6H PRN Administration Mild Pain (1-3) or Fever Hydrocodone Bitart/Acetaminophen 1 tab 03/16/21 12:41 03/17/21 08:09 Hydrocodone/Acetaminophen (*Crx) 5-325 Mg Tablet PO 1 tab Q3H PRN Administration Pain Rated 4-6 Al Hydrox/Mg Hydrox/Simethicone 30 ml 03/16/21 12:41 Mag Hydrox/Al Hydrox/Simeth 30 Ml Udc PO Q6H PRN Indigestion Amitriptyline HCl 10 mg 03/16/21 21:00 03/17/21 20:06 Amitriptyline Hcl 10 Mg Tablet PO 10 mg HS LEANN Administration Amlodipine Besylate 10 mg 03/17/21 09:00 03/18/21 08:48 Amlodipine Besylate 5 Mg Tablet PO 10 mg DAILY LEANN Administration Aspirin 650 mg 03/17/21 09:00 03/18/21 08:48 Aspirin 325 Mg Enteric Tablet PO 650 mg DAILY LEANN Administration Atorvastatin Calcium 80 mg 03/16/21 21:00 03/17/21 20:06 Atorvastatin 40 Mg Tablet PO 80 mg HS LAENN Administration Celecoxib 200 mg 03/17/21 09:00 05
--- NOTE | 2021-03-18 12:48 | PM.PNORT ---
Progress Note: A&P Additional Plan POD 2 IMPROVING. WILL NEED TO HAVE UROLOGY CONSULT PRIOR TO DISCHARGE. Subjective Subjective Date/Time Seen: 03/18/21 12:48POD 2 DOING WELL. NO NEW COMPLAINTS. STILL HAVING URINAR RETENTION. UROLOGY HAS BEEN CONSULTED. NO CALF PAIN Exam Extrem: Other: VSS AFEBRILE DRESSING DRY WEAK ION DORSIFLEXION OTHERWISE INTACT, CALF SOFT NON TENDER, NEG HOMANS SIGN. Objective Data Vital Signs Vital Signs: Vital Signs - 24 hr 03/17/21 14:00 03/17/21 18:00 03/17/21 20:06 Temperature 36.1 C L 36.6 C Pulse Rate 84 84 80 Respiratory Rate 16 16 Blood Pressure 132/62 103/85 Pulse Oximetry 98 98 03/17/21 22:00 03/17/21 22:15 03/18/21 08:00 Temperature 36.2 C L 36.2 C L Pulse Rate 87 86 Respiratory Rate 18 18 Blood Pressure 123/60 124/68 Pulse Oximetry 96 96 96 Intake/Output Intake/Output: Intake & Output 03/15/21 03/16/21 03/17/21 03/18/21 23:59 23:59 23:59 23:59 Intake Total 1190 1580 590 Output Total 100 1840 1400 Balance 1090 260 810 Meds/Results Medications: Active Medications Generic Name Dose Route Start Last Admin Trade Name Freq PRN Reason Stop Dose Admin Acetaminophen 650 mg 03/16/21 12:41 03/18/21 08:50 Acetaminophen 325 Mg Tablet PO 650 mg Q6H PRN Administration Mild Pain (1-3) or Fever Hydrocodone Bitart/Acetaminophen 1 tab 03/16/21 12:41 03/17/21 08:09 Hydrocodone/Acetaminophen (*Crx) 5-325 Mg Tablet PO 1 tab Q3H PRN Administration Pain Rated 4-6 Al Hydrox/Mg Hydrox/Simethicone 30 ml 03/16/21 12:41 Mag Hydrox/Al Hydrox/Simeth 30 Ml Udc PO Q6H PRN Indigestion Amitriptyline HCl 10 mg 03/16/21 21:00 03/17/21 20:06 Amitriptyline Hcl 10 Mg Tablet PO 10 mg HS LEANN Administration Amlodipine Besylate 10 mg 03/17/21 09:00 03/18/21 08:48 Amlodipine Besylate 5 Mg Tablet PO 10 mg DAILY LEANN Administration Aspirin 650 mg 03/17/21 09:00 03/18/21 08:48 Aspirin 325 Mg Enteric Tablet PO 650 mg DAILY LEANN Administration Atorvastatin Calcium 80 mg 03/16/21 21:00 03/17/21 20:06 Atorvastatin 40 Mg Tablet PO 80 mg HS LEANN Administration Celecoxib 200 mg 03/17/21 09:00 03/18/21 08:49 Celecoxib 200 Mg Capsule PO 200 mg DAILY LEANN Administration Dextrose 12.5 gm 03/16/21 17:19 Dextrose 50% 25 Gm/50 Ml Syringe IV PUSH PRN PRN Hypoglycemia Protocol Diazepam 5 mg 03/16/21 12:41 Diazepam (*Crx) 5 Mg Tablet PO Q6H PRN Anxiety/Muscle Spasm Docusate Sodium 100 mg 03/16/21 17:00 03/18/21 08:49 Docusate Sodium 100 Mg Capsule PO 100 mg BID LEANN Administration Enalapril Maleate 20 mg 03/17/21 09:00 03/18/21 08:49 Enalapril Maleate 10 Mg Tablet PO 20 mg DAILY LEANN Administration Famotidine 20 mg 03/16/21 21:00 03/18/21 08:49 Famotidine 20 Mg Tablet PO 20 mg Q12HR LEANN Administration Gabapentin 300 mg 03/16/21 13:00 03/18/21 08:49 Gabapentin 300 Mg Capsule PO 300 mg TID LEANN Administration Glucagon 1 mg 03/16/21 17:19 Glucagon For Inj 1 Mg Vial IM PRN PRN Hypoglycemia Protocol Glucose 15 gm 03/16/21 17:19 Glucose Oral Gel 15 Gm Of Glucse In 37.5 Gm Tube PO PRN PRN Hypoglycemia Protocol Hydroxyzine HCl 50 mg 03/16/21 12:41 Hydroxyzine Hcl 25 Mg Tablet PO Q4H PRN Itching Dextrose 1,000 mls @ 100 mls/hr 03/16/21 17:19 Dextrose 5% 1,000 Ml IVPB PRN PRN Hypoglycemia Protocol Insulin Aspart 2 - 5 units 03/16/21 17:00 03/18/21 08:48 Insulin Aspart (*Bkc) 100 Units/Ml SUB-Q Not Given TIDWM LEANN Protocol Magnesium Hydroxide 30 ml 03/16/21 12:41 Magnesium Hydroxide Susp 30 Ml Udc PO BID PRN Constipation Metoprolol Succinate 150 mg 03/16/21 21:00 03/17/21 20:06 Metoprolol Succinate Ext Rel 50 Mg Tabcr PO 150 mg HS LEANN Administration Morphine Sulfate 3 mg 03/16/21 12:41 Morph
--- NOTE | 2021-03-18 14:59 | WPDURCON ---
Assessment and Plan Assessment and plan (1) Urinary retention: Code(s): R33.9 - Retention of urine, unspecified Status: Acute Assessment and Plan: At this point time will see if patient voids in the next couple of hours. If he is unable to void he will need to either intermittent catheterization or have an indwelling Maloney placed and we can remove that on Sunday in the office if needed. He is to continue with Flomax at home. Urology Consult Note HPI Date Seen: 03/18/21 Requesting Physician: Chris Presley MD Primary Care Provider: Kings Díaz MD Consult Narrative Reason for consult: Urinary retention Narrative: Saravanan Ralph is a 80 year old male who is known to me. Patient recently underwent right MARY by Dr. Astorga. Patient has been unable to void on his own since that time and has required both intermittent catheterization and indwelling Maloney. His catheter at this time is been removed at 10:00 a.m.. He has not voided in the past 5 hours with this not feel uncomfortable. He had 1 prior episode of retention after a surgery in his cervical disc years ago. Patient does take Flomax at. Review of Systems Review of Systems: All systems reviewed & are unremarkable except as noted in HPI and below PMFSH Past Medical History Medical History Abnormal EKG Acute right hip pain 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 urinary tract symptoms COVID-19 (06/10/20) Diabetes Diverticulosis Encounter for screening laboratory testing for COVID-19 virus High cholesterol Hypertension Lab test positive for detection of COVID-19 virus Neoplasm of skin of cheek Seborrheic dermatitis Skin cancer Vision changes Surgical History Surgical History History of cataract surgery History of fusion of cervical spine History of lumbar fusion S/P total hip arthroplasty Family History Family History Mother Patient's mother is , Onset Age: 89 Father Cerebrovascular accident, Onset Age: 73 Other Diabetes mellitus Heart disease Hypertension Social History Social History Smoking packs per day: 1 Smoking cigarettes per day: 20.0 Years smoked: 15 Smoking pack-years: 15.00 Smoking status: Former smoker Tobacco type: cigarettes Smoking end date: 03/09/70 Additional smoking assessment comments: DENIES ANY FORM OF TOBACCO USE Alcohol intake: former Substance use: never Substance use type: does not use Living arrangements: with family Gender identity (if verbalized by the patient): Male Sexual Orientation (if Verbalized by the Patient): Straight or Heterosexual Spiritual care concerns: No Meds Home Medications and Allergies Home Medications Medication Instructions Recorded Confirmed Type potassium citrate 10 mEq (1,080 10 meq PO TID 10/01/19 03/16/21 History mg) tablet,extended release amlodipine 10 mg tablet 10 mg PO DAILY 07/14/20 03/16/21 History enalapril maleate 20 mg tablet 20 mg PO DAILY #90 tablet 07/14/20 03/16/21 Rx multivitamin 1 cap PO DAILY 09/13/20 03/16/21 History gabapentin 300 mg capsule 300 mg PO TID #270 cap 01/25/21 03/16/21 Rx amitriptyline 10 mg PO HS 03/03/21 03/16/21 History atorvastatin 80 mg PO HS 03/03/21 03/16/21 History fluticasone propionate [Allergy 2 spray INTRANASAL PRN PRN 03/03/21 03/16/21 History Relief (fluticasone)] meloxicam 15 mg PO PRN PRN 03/03/21 03/16/21 History metformin 2,000 mg PO QPM 03/03/21 03/16/21 History metoprolol succinate 150 mg PO HS 03/03/21 03/16/21 History tamsulosin 0.4 mg PO HS 03/03/21 03/16/21 History aspirin 650 mg PO DAILY 28 Days #56 tablet 03/17/21 Rx celecoxib [Celebrex] 200 mg PO DAILY 14 Days #14 cap 03/17/21 Rx docusate sodium 100 mg PO BI
[2021-03-18 16:00] VITALS: BP 109/61; PULSE 86; RESP 18; TEMP 36.3; O2SAT 100
[2021-03-18 16:57] LABS: Glucose Point of Care 138 (65-105)
[2021-03-18 17:48] LABS: Basophils Percent Auto 0.3 % (0.2-1.2); Eosinophils Absolute Auto 0.1 K/mm3 (0-0.3); Eosinophils Percent Auto 0.7 % (0-4.4); Hematocrit 39.5 % (42.0-52.0); Hemoglobin 13.1 g/dL (14.0-18.0); Immature Granulocyte Absolute 0.06 K/mm3 (0.00-0.031); Immature Granulocyte Percent A 0.5 % (0-0.5); Lymphocytes Absolute Auto 1.61 K/mm3 (0.9-3.2); Lymphocytes Percent Auto 14.6 % (18.3-44.2); Mean Corpuscular HGB Conc 33.2 g/dl (32-36); Mean Corpuscular Hemoglobin 32.6 pg (26-34); Mean Corpuscular Volume 98.3 fl (80-100); Mean Platelet Volume 11.3 fl (7.4-10.4); Monocytes Absolute Auto 1.4 K/mm3 (0.1-0.6); Monocytes Percent Auto 12.7 % (2.6-8.5); Neutrophils Absolute Auto 7.9 K/mm3 (1.3-6.7); Neutrophils Percent Auto 71.2 % (45.5-73.1); Platelet Count Result 154 k/mm3 (150-375); Red Blood Count 4.02 M/mm3 (4.6-6.20); Red Cell Distribution Width 13.8 % (11.5-14.5); White Blood Count 11.1 K/mm3 (4.5-10.0)
[2021-03-18 17:59] LABS: Alanine Aminotransferase 17 U/L (4-50); Albumin Level 3.8 g/dL (3.5-5.1); Alkaline Phosphatase 59 U/L (38-126); Anion Gap 8 mmol/L (8-16); Aspartate Amino Transferase 53 U/L (17-59); Bilirubin,Total 0.9 mg/dL (0.2-1.3); Blood Urea Nitrogen 32 mg/dL (9-20); Calcium 8.8 mg/dL (8.4-10.2); Carbon Dioxide 31 mmol/L (22-30); Chloride 99 mmol/L (98-107); Estimated CRCL calculation 35 ml/min; Estimated Glomerular Filt Rate 32; Glucose 138 mg/dL (75-110); Potassium 3.6 mmol/L (3.4-5.0); Sodium 138 mmol/L (137-145)
[2021-03-18] MEDS: AMITRIPTYLINE HCL 10 MG TABLET PO (20:31)
[2021-03-18] MEDS: ATORVASTATIN 40 MG TABLET 80 MG PO (20:31)
[2021-03-18 20:32] VITALS: PULSE 80
[2021-03-18] MEDS: METOPROLOL SUCCINATE EXT REL 50 MG TABCR 150 MG PO (20:32)
[2021-03-18] MEDS: SENNA/DOCUSATE SODIUM TABLET 1 TAB PO (20:32)
[2021-03-18] MEDS: TAMSULOSIN HCL 0.4 MG CAPSULE PO (20:33)
[2021-03-18 21:23] VITALS: BP 112/57; PULSE 69; RESP 18; TEMP 36.6; O2SAT 98
[2021-03-18 21:51] LABS: Glucose Point of Care 166 (65-105)
[2021-03-18 22:25] VITALS: O2SAT 96
[2021-03-19 06:00] VITALS: BP 126/67; PULSE 95; RESP 16; TEMP 36.5; O2SAT 94
[2021-03-19 07:42] LABS: Glucose Point of Care 159 (65-105)
[2021-03-19] MEDS: ENALAPRIL MALEATE 10 MG TABLET 20 MG PO (09:21)
[2021-03-19] MEDS: ASPIRIN 325 MG ENTERIC TABLET 650 MG PO (09:21)
[2021-03-19] MEDS: DOCUSATE SODIUM 100 MG CAPSULE PO (09:22)
[2021-03-19] MEDS: CELECOXIB 200 MG CAPSULE PO (09:22)
[2021-03-19] MEDS: amLODIPine BESYLATE 5 MG TABLET 10 MG PO (09:22)
[2021-03-19] MEDS: FAMOTIDINE 20 MG TABLET PO (09:22)
[2021-03-19] MEDS: POTASSIUM CITRATE 5 MEQ TAB CR 10 MEQ PO (09:22)
[2021-03-19] MEDS: GABAPENTIN 300 MG CAPSULE PO (09:22)
[2021-03-19 11:36] LABS: Glucose Point of Care 244 (65-105)
[2021-03-19 12:31] LABS: Albumin Level 3.4 g/dL (3.5-5.1); Anion Gap 5 mmol/L (8-16); Blood Urea Nitrogen 35 mg/dL (9-20); Calcium 8.9 mg/dL (8.4-10.2); Carbon Dioxide 32 mmol/L (22-30); Chloride 101 mmol/L (98-107); Estimated CRCL calculation 49 ml/min; Estimated Glomerular Filt Rate 49; Glucose 231 mg/dL (75-110); Phosphorus 2.8 mg/dL (2.5-4.5); Potassium 4.2 mmol/L (3.4-5.0); Sodium 138 mmol/L (137-145)
--- NOTE | 2021-03-19 13:52 | WPDPN ---
Progress Note: A&P Additional Plan POD 3 STABLE. WILL DC HOME WITH HOME HEALTH. F/U IN 3 WEEKS. Exam Extrem: Other: VSS AFEBRILE DRESSING DRY WEAK DORSI FLEXION OTHERWISE [place] INTACT, CALF SOFT NON TENDER, NEG HOMANS SIGN Objective Data Vital Signs Vital Signs: Vital Signs - 24 hr 03/18/21 16:00 03/18/21 20:32 03/18/21 21:23 Temperature 36.3 C L 36.6 C Pulse Rate 86 80 69 Respiratory Rate 18 18 Blood Pressure 109/61 112/57 L Pulse Oximetry 100 98 03/18/21 22:25 03/19/21 06:00 Temperature 36.5 C Pulse Rate 95 Respiratory Rate 16 Blood Pressure 126/67 Pulse Oximetry 96 94 Intake/Output Intake/Output: Intake & Output 03/16/21 03/17/21 03/18/21 03/19/21 23:59 23:59 23:59 23:59 Intake Total 1190 1580 980 400 Output Total 100 1840 2100 1100 Balance 1090 260 -1120 -700 Meds/Results Medications: Active Medications Generic Name Dose Route Start Last Admin Trade Name Freq PRN Reason Stop Dose Admin Acetaminophen 650 mg 03/16/21 12:41 03/18/21 16:41 Acetaminophen 325 Mg Tablet PO 650 mg Q6H PRN Administration Mild Pain (1-3) or Fever Hydrocodone Bitart/Acetaminophen 1 tab 03/16/21 12:41 03/17/21 08:09 Hydrocodone/Acetaminophen (*Crx) 5-325 Mg Tablet PO 1 tab Q3H PRN Administration Pain Rated 4-6 Al Hydrox/Mg Hydrox/Simethicone 30 ml 03/16/21 12:41 Mag Hydrox/Al Hydrox/Simeth 30 Ml Udc PO Q6H PRN Indigestion Amitriptyline HCl 10 mg 03/16/21 21:00 03/18/21 20:31 Amitriptyline Hcl 10 Mg Tablet PO 10 mg HS LEANN Administration Amlodipine Besylate 10 mg 03/17/21 09:00 03/19/21 09:22 Amlodipine Besylate 5 Mg Tablet PO 10 mg DAILY LEANN Administration Aspirin 650 mg 03/17/21 09:00 03/19/21 09:21 Aspirin 325 Mg Enteric Tablet PO 650 mg DAILY LEANN Administration Atorvastatin Calcium 80 mg 03/16/21 21:00 03/18/21 20:31 Atorvastatin 40 Mg Tablet PO 80 mg HS LEANN Administration Celecoxib 200 mg 03/17/21 09:00 03/19/21 09:22 Celecoxib 200 Mg Capsule PO 200 mg DAILY LEANN Administration Dextrose 12.5 gm 03/16/21 17:19 Dextrose 50% 25 Gm/50 Ml Syringe IV PUSH PRN PRN Hypoglycemia Protocol Diazepam 5 mg 03/16/21 12:41 Diazepam (*Crx) 5 Mg Tablet PO Q6H PRN Anxiety/Muscle Spasm Docusate Sodium 100 mg 03/16/21 17:00 03/19/21 09:22 Docusate Sodium 100 Mg Capsule PO 100 mg BID LEANN Administration Enalapril Maleate 20 mg 03/17/21 09:00 03/19/21 09:21 Enalapril Maleate 10 Mg Tablet PO 20 mg DAILY LEANN Administration Famotidine 20 mg 03/16/21 21:00 03/19/21 09:22 Famotidine 20 Mg Tablet PO 20 mg Q12HR LEANN Administration Gabapentin 300 mg 03/16/21 13:00 03/19/21 09:22 Gabapentin 300 Mg Capsule PO 300 mg TID LEANN Administration Glucagon 1 mg 03/16/21 17:19 Glucagon For Inj 1 Mg Vial IM PRN PRN Hypoglycemia Protocol Glucose 15 gm 03/16/21 17:19 Glucose Oral Gel 15 Gm Of Glucse In 37.5 Gm Tube PO PRN PRN Hypoglycemia Protocol Hydroxyzine HCl 50 mg 03/16/21 12:41 Hydroxyzine Hcl 25 Mg Tablet PO Q4H PRN Itching Dextrose 1,000 mls @ 100 mls/hr 03/16/21 17:19 Dextrose 5% 1,000 Ml IVPB PRN PRN Hypoglycemia Protocol Insulin Aspart 2 - 5 units 03/16/21 17:00 03/19/21 11:43 Insulin Aspart (*Bkc) 100 Units/Ml SUB-Q Not Given TIDWM LEANN Protocol Magnesium Hydroxide 30 ml 03/16/21 12:41 Magnesium Hydroxide Susp 30 Ml Udc PO BID PRN Constipation Metoprolol Succinate 150 mg 03/16/21 21:00 03/18/21 20:32 Metoprolol Succinate Ext Rel 50 Mg Tabcr PO 150 mg HS LEANN Administration Morphine Sulfate 3 mg 03/16/21 12:41 Morphine Sulfate (*Crx) 4 Mg/Ml Inj IV PUSH Q3H PRN Pain Rated 7-10 Naloxone HCl 0.1 mg 03/16/21 12:41 Naloxone Hcl 0.4 Mg/Ml Vial IV PUSH Q2M PRN Opiate Reversal Ondansetron HCl 4
--- NOTE | 2021-03-19 13:55 | PM.DS ---
DS: Admitting Diagnosis Admitting Diagnosis Admitting Diagnosis: R HIP DJD DS: Discharge Diagnosis Discharge Diagnosis (1) S/P total hip arthroplasty: Qualifiers: Laterality: right Qualified Code(s): Z96.641 - Presence of right artificial hip joint Code(s): Z96.649 - Presence of unspecified artificial hip joint Status: Acute (2) Urinary retention: Code(s): R33.9 - Retention of urine, unspecified Status: Acute DS: Summary Hospital Course Hospital Course: PATIENT UNDERWENT R MARY AND DID WELL. POSTOP HE DEVELOPED URINARY RETENTION AND UROLOGY CONSULT WAS OBTAINED. HE DID WELL WITH PT. HE HAD GOOD PO INTAKE. HIS PAIN WAS CONTROLLED. HIS VITALS AND LABS REMAINED STABLE. HE HAD NO SIGN OF INFECTION OR DVT. HE WAS DISCHARGED HOME WITH HOME HEALTH TO F/U IN 3 WEEKS AND F/U WITH UROLOGY Time spent discussing smoking cessation with patient: 3 to 10 minutes Status at Discharge Functional status at discharge: uses cane/walker Time Spent with Patient Time attestation: Total time spent providing and/or coordinating discharge services: Time spent: Less than 30 minutes DS: Data Data Completed and Pending Labs on day of discharge: Labs from last 24 hours 03/19/21 03/19/21 03/19/21 12:09 11:30 07:35 WBC RBC Hgb Hct MCV MCH MCHC RDW Plt Count MPV Immature Gran % (Auto) Neut % (Auto) Lymph % (Auto) [place] % (Auto) Eos % (Auto) Baso % (Auto) Lymph # (Auto) [place] # (Auto) Eos # (Auto) Baso # (Auto) Abs Immat Gran (auto) Absolute Neuts (auto) Absolute Nucleated RBC Nucleated RBC % Sodium 138 Potassium 4.2 Chloride 101 Carbon Dioxide 32 H Anion Gap 5 L BUN 35 H Creatinine 1.40 H Estim Creat Clear Calc 49 Estimated GFR 49 L Glucose 231 H POC Capillary Glucose 244 H 159 H Calcium 8.9 Phosphorus 2.8 Total Bilirubin AST ALT Alkaline Phosphatase Total Protein Albumin 3.4 L 03/18/21 03/18/21 03/18/21 20:30 17:32 17:32 WBC 11.1 H RBC 4.02 L Hgb 13.1 L Hct 39.5 L MCV 98.3 MCH 32.6 MCHC 33.2 RDW 13.8 Plt Count 154 MPV 11.3 H Immature Gran % (Auto) 0.5 Neut % (Auto) 71.2 Lymph % (Auto) 14.6 L [place] % (Auto) 12.7 H Eos % (Auto) 0.7 Baso % (Auto) 0.3 Lymph # (Auto) 1.61 [place] # (Auto) 1.4 H Eos # (Auto) 0.1 Baso # (Auto) 0.0 Abs Immat Gran (auto) 0.06 H Absolute Neuts (auto) 7.9 H Absolute Nucleated RBC 0.0 Nucleated RBC % 0.0 Sodium 138 Potassium 3.6 Chloride 99 Carbon Dioxide 31 H Anion Gap 8 BUN 32 H Creatinine 2.00 H Estim Creat Clear Calc 35 Estimated GFR 32 L Glucose 138 H POC Capillary Glucose 166 H Calcium 8.8 Phosphorus Total Bilirubin 0.9 AST 53 ALT 17 Alkaline Phosphatase 59 Total Protein 7.0 Albumin 3.8 03/18/21 16:43 WBC RBC Hgb Hct MCV MCH MCHC RDW Plt Count MPV Immature Gran % (Auto) Neut % (Auto) Lymph % (Auto) [place] % (Auto) Eos % (Auto) Baso % (Auto) Lymph # (Auto) [place] # (Auto) Eos # (Auto) Baso # (Auto) Abs Immat Gran (auto) Absolute Neuts (auto) Absolute Nucleated RBC Nucleated RBC % Sodium Potassium Chloride Carbon Dioxide Anion Gap BUN Creatinine Estim Creat Clear Calc Estimated GFR Glucose POC Capillary Glucose 138 H Calcium Phosphorus Total Bilirubin AST ALT Alkaline Phosphatase Total Protein Albumin Discharge Plan Discharge Consulting providers: Yusuf Brandon ; Kyle Albrecht Discharging Clinician: Chris Presley Patient Disposition: Home Health Service Activity: may shower, no driving and follow weight bearing status Diet: as tolerated Wound Care Instructions: follow printed instructions and keep dressing dry Discharge Instructions: Post Op Total Hip Replacement I
--- NOTE | 2021-03-19 14:09 | WPDUROPN2 ---
Progress Note: A&P Assessment and Plan (1) Urinary retention: Code(s): R33.9 - Retention of urine, unspecified Status: Acute Assessment and Plan: -patient will be discharged home with Maloney catheter -he should continue on Flomax -planning void trial next week with home health care. -the patient will call to schedule a follow-up appointment as an outpatient at our office Subjective Subjective Date/Time Seen: 03/19/21 14:09 -patient unable to void last night and Maloney catheter inserted Exam Narrative: Exam Narrative: Patient feeling well in no acute distress. Breathing is unlabored. The abdomen is soft. He has a Maloney catheter in place draining clear urine Objective Data Vital Signs Vital Signs: Vital Signs - 24 hr 03/18/21 16:00 03/18/21 20:32 03/18/21 21:23 Temperature 36.3 C L 36.6 C Pulse Rate 86 80 69 Respiratory Rate 18 18 Blood Pressure 109/61 112/57 L Pulse Oximetry 100 98 03/18/21 22:25 03/19/21 06:00 Temperature 36.5 C Pulse Rate 95 Respiratory Rate 16 Blood Pressure 126/67 Pulse Oximetry 96 94 Intake/Output Intake/Output: Intake & Output 03/16/21 03/17/21 03/18/21 03/19/21 23:59 23:59 23:59 23:59 Intake Total 1190 1580 980 400 Output Total 100 1840 2100 1100 Balance 1090 -260 -1120 -700 Meds/Results Medications: Active Medications Generic Name Dose Route Start Last Admin Trade Name Freq PRN Reason Stop Dose Admin Acetaminophen 650 mg 03/16/21 12:41 03/18/21 16:41 Acetaminophen 325 Mg Tablet PO 650 mg Q6H PRN Administration Mild Pain (1-3) or Fever Hydrocodone Bitart/Acetaminophen 1 tab 03/16/21 12:41 03/17/21 08:09 Hydrocodone/Acetaminophen (*Crx) 5-325 Mg Tablet PO 1 tab Q3H PRN Administration Pain Rated 4-6 Al Hydrox/Mg Hydrox/Simethicone 30 ml 03/16/21 12:41 Mag Hydrox/Al Hydrox/Simeth 30 Ml Udc PO Q6H PRN Indigestion Amitriptyline HCl 10 mg 03/16/21 21:00 03/18/21 20:31 Amitriptyline Hcl 10 Mg Tablet PO 10 mg HS LEANN Administration Amlodipine Besylate 10 mg 03/17/21 09:00 03/19/21 09:22 Amlodipine Besylate 5 Mg Tablet PO 10 mg DAILY LEANN Administration Aspirin 650 mg 03/17/21 09:00 03/19/21 09:21 Aspirin 325 Mg Enteric Tablet PO 650 mg DAILY LEANN Administration Atorvastatin Calcium 80 mg 03/16/21 21:00 03/18/21 20:31 Atorvastatin 40 Mg Tablet PO 80 mg HS LEANN Administration Celecoxib 200 mg 03/17/21 09:00 03/19/21 09:22 Celecoxib 200 Mg Capsule PO 200 mg DAILY LEANN Administration Dextrose 12.5 gm 03/16/21 17:19 Dextrose 50% 25 Gm/50 Ml Syringe IV PUSH PRN PRN Hypoglycemia Protocol Diazepam 5 mg 03/16/21 12:41 Diazepam (*Crx) 5 Mg Tablet PO Q6H PRN Anxiety/Muscle Spasm Docusate Sodium 100 mg 03/16/21 17:00 03/19/21 09:22 Docusate Sodium 100 Mg Capsule PO 100 mg BID LEANN Administration Enalapril Maleate 20 mg 03/17/21 09:00 03/19/21 09:21 Enalapril Maleate 10 Mg Tablet PO 20 mg DAILY LEANN Administration Famotidine 20 mg 03/16/21 21:00 03/19/21 09:22 Famotidine 20 Mg Tablet PO 20 mg Q12HR LEANN Administration Gabapentin 300 mg 03/16/21 13:00 03/19/21 09:22 Gabapentin 300 Mg Capsule PO 300 mg TID LEANN Administration Glucagon 1 mg 03/16/21 17:19 Glucagon For Inj 1 Mg Vial IM PRN PRN Hypoglycemia Protocol Glucose 15 gm 03/16/21 17:19 Glucose Oral Gel 15 Gm Of Glucse In 37.5 Gm Tube PO PRN PRN Hypoglycemia Protocol Hydroxyzine HCl 50 mg 03/16/21 12:41 Hydroxyzine Hcl 25 Mg Tablet PO Q4H PRN Itching Dextrose 1,000 mls @ 100 mls/hr 03/16/21 17:19 Dextrose 5% 1,000 Ml IVPB PRN PRN Hypoglycemia Protocol Insulin Aspart 2 - 5 units 03/16/21 17:00 03/19/21 11:43 Insulin Aspart (*Bkc) 100 Units/Ml SUB-Q Not Given TIDWM LEANN Protocol Magnesium Hydroxide 30 ml 03/16/21 12:41
--- NOTE | 2021-03-19 15:32 | PM.IMPN ---
Progress Note: A&P Assessment and Plan (1) Abnormal EKG: Code(s): R94.31 - Abnormal electrocardiogram [ECG] [EKG] Status: Acute Assessment and Plan: Pt is being monitored in the hospital (2) Degenerative joint disease (DJD) of hip: Qualifiers: Osteoarthritis type: primary Laterality: right Qualified Code(s): M16.11 - Unilateral primary osteoarthritis, right hip Code(s): M16.9 - Osteoarthritis of hip, unspecified Status: Acute Assessment and Plan: Status post total hip arthroplasty continue pain control DVT prophylaxis per surgery (3) 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 urinary tract symptoms: Code(s): N40.0 - Benign prostatic hyperplasia without lower urinary tract symptoms Status: Acute Assessment and Plan: Continue meds and Maloney and f/u with urology as outpt (4) Essential (primary) hypertension: Code(s): I10 - Essential (primary) hypertension Status: Acute Assessment and Plan: Continue amlodipine (5) Mixed hyperlipidemia: Code(s): E78.2 - Mixed hyperlipidemia Status: Acute Assessment and Plan: Continue statin (6) Peripheral polyneuropathy: Code(s): G62.9 - Polyneuropathy, unspecified Status: Acute Assessment and Plan: On gabapentin (7) Type 2 diabetes mellitus without complication, without long-term current use of insulin: Code(s): E11.9 - Type 2 diabetes mellitus without complications Status: Acute Assessment and Plan: Continue metformin Subjective Date/time seen: 03/19/21 15:32 Interval history: 80year old man Pt sp total R hip arthroplasty, post op day 3 Bowels moved Maloney in place due to urinary retention. Tolerating well. Denied pain other than hip with ambulation. Review of Systems Review of Systems: All systems reviewed & are unremarkable except as noted in HPI and below Exam Narrative: Exam Narrative: HEENT: PERRL, sclerae nonicteric, pharyngeal mucosa pink and intact NECK: No JVD CHEST: Clear to auscultation. Normal effort. HEART: NL S1/S2, regular, no murmur ABDOMEN: BS+, soft, nontender, no mass, no bruits EXTREMITIES: No cyanosis, mild left ankle edema NEUROLOGIC: CN intact and symmetric to inspection. MUSCULOSKELETAL: Tone and strength symmetric. PSYCH: Alert. Oriented to person, place, and time. Objective Data Vital Signs Vital Signs: Vital Signs - 24 hr 03/18/21 16:00 03/18/21 20:32 03/18/21 21:23 Temperature 97.3 F L 97.8 F Pulse Rate 86 80 69 Respiratory Rate 18 18 Blood Pressure 109/61 112/57 L Pulse Oximetry 100 98 03/18/21 22:25 03/19/21 06:00 Temperature 97.7 F Pulse Rate 95 Respiratory Rate 16 Blood Pressure 126/67 Pulse Oximetry 96 94 Intake/Output Intake/Output: Intake & Output 03/16/21 03/17/21 03/18/21 03/19/21 23:59 23:59 23:59 23:59 Intake Total 1190 1580 980 400 Output Total 100 1840 2100 1100 Balance 0409 -624 -1120 -700 Meds/Results Medications: Active Medications Generic Name Dose Route Start Last Admin Trade Name Freq PRN Reason Stop Dose Admin Acetaminophen 650 mg 03/16/21 12:41 03/18/21 16:41 Acetaminophen 325 Mg Tablet PO 650 mg Q6H PRN Administration Mild Pain (1-3) or Fever Hydrocodone Bitart/Acetaminophen 1 tab 03/16/21 12:41 03/17/21 08:09 Hydrocodone/Acetaminophen (*Crx) 5-325 Mg Tablet PO 1 tab Q3H PRN Administration Pain Rated 4-6 Al Hydrox/Mg Hydrox/Simethicone 30 ml 03/16/21 12:41 Mag Hydrox/Al Hydrox/Simeth 30 Ml Udc PO Q6H PRN Indigestion Amitriptyline HCl 10 mg 03/16/21 21:00 03/18/21 20:31 Amitriptyline Hcl 10 Mg Tablet PO 10 mg HS LEANN Administration Amlodipine Besylate 10 mg 03/17/21 09:00 03/19/21 09:22 Amlodipine Besylate 5 Mg Tablet PO 10 mg DAILY LEANN Administration Aspirin 650 mg 03/17/21 09:00 03/19/21 09:21 Aspirin 325 Mg Enteric Tablet PO 650 mg DAILY LEANN Administration
== END 2021-03-19 15:35 | disposition home health service (06) ==
LOC: ANHSURGERY 18:39 → ANH2MED 18:39
PROVIDERS: Internal Medicine; Admitting Provider Orthopaedic Surgery; PCP Family Medicine; Visit Provider Orthopaedic Surgery
PROC: (CPT 27130; principal; 2021-03-16 07:30)
DX: M16.11 Unilateral primary osteoarthritis, right hip (principal); R33.9 Retention of urine, unspecified; R94.31 Abnormal electrocardiogram [ECG] [EKG]; I10 Essential (primary) hypertension; E11.42 Type 2 diabetes mellitus with diabetic polyneuropathy; E78.2 Mixed hyperlipidemia; N40.0 Benign prostatic hyperplasia without lower urinary tract symptoms; Z86.16 Personal history of COVID-19; Z98.1 Arthrodesis status; Z87.891 Personal history of nicotine dependence; Z79.84 Long term (current) use of oral hypoglycemic drugs
CPT/HCPCS: 27130; 36415; 73502; 78452; 80048; 80053; 80069; 80307; 81001; 82040; 82948; 83036; 85014; 85018; 85025; 85055; 85610; 85730; 86850; 86900; 86901; 87081; 93005; 93017; 97110; 97116; 97161; 97165; 97530; 97535; A9270; A9502; C1776; C9803; G0378; J0171; J0690; J1170; J1720; J2270; J2370; J2405; J2710; J2785; J2795; J3010; J7120; U0003; U0005

== ENCOUNTER 2021-04-15 22:27 | Observation (INO) | payer MEDICARE, SELFPAY ==
--- NOTE | ~2021-04-15 | XR_ITS ---
EXAMINATION: XR chest 1V portable EXAM DATE: 04/16/2021 00:05 INDICATION: Cough. TECHNIQUE: Portable AP frontal chest x-ray was obtained. Comparison is made to prior examination from 06/23/2019. FINDINGS: The lungs are clear. There are no pleural effusions. The cardiomediastinal silhouette is within normal limits. There is no pneumothorax suspected. The bones and soft tissues are unremarkab le. IMPRESSION: No acute cardiopulmonary findings. Reviewed, dictated and finalized at location A.
[2021-04-15 22:33] VITALS: BP 125/63; PULSE 117; RESP 21; TEMP 38.6; O2SAT 92
[2021-04-15 23:30] VITALS: BP 127/70; PULSE 111; RESP 28; O2SAT 88
[2021-04-15 23:32] VITALS: O2SAT 88
[2021-04-15 23:35] VITALS: PULSE 112; RESP 28; O2SAT 94
[2021-04-16] VITALS (9 sets, daily range): BP systolic 103–157; BP diastolic 57–85; PULSE 95–111; RESP 18–25; TEMP 36.4–38.3; O2SAT 93–97; BMI 25.0
[2021-04-16 00:10] LABS: Basophils Percent Auto 0.3 % (0.2-1.2); Eosinophils Percent Auto 0.1 % (0-4.4); Hematocrit 39.7 % (42.0-52.0); Immature Granulocyte Absolute 0.12 K/mm3 (0.00-0.031); Immature Granulocyte Percent A 0.8 % (0-0.5); Lymphocytes Percent Auto 2.6 % (18.3-44.2); Mean Corpuscular HGB Conc 32.7 g/dl (32-36); Mean Corpuscular Hemoglobin 31.9 pg (26-34); Mean Corpuscular Volume 97.5 fl (80-100); Mean Platelet Volume 10.2 fl (7.4-10.4); Monocytes Absolute Auto 0.9 K/mm3 (0.1-0.6); Monocytes Percent Auto 5.7 % (2.6-8.5); Neutrophils Absolute Auto 14.1 K/mm3 (1.3-6.7); Neutrophils Percent Auto 90.5 % (45.5-73.1); Platelet Count Result 203 k/mm3 (150-375); Red Blood Count 4.07 M/mm3 (4.6-6.20); Red Cell Distribution Width 13.7 % (11.5-14.5); White Blood Count 15.6 K/mm3 (4.5-10.0)
[2021-04-16 00:17] LABS: Alanine Aminotransferase 19 U/L (4-50); Albumin Level 3.6 g/dL (3.5-5.1); Alkaline Phosphatase 120 U/L (38-126); Anion Gap 10 mmol/L (8-16); Aspartate Amino Transferase 25 U/L (17-59); Bilirubin,Total 0.8 mg/dL (0.2-1.3); Blood Urea Nitrogen 31 mg/dL (9-20); Carbon Dioxide 25 mmol/L (22-30); Chloride 102 mmol/L (98-107); Estimated CRCL calculation 60 ml/min; Estimated Glomerular Filt Rate > 60; Glucose 171 mg/dL (75-110); Lactic Acid Reflex 2.2 mmol/L (0.7-2.1); Potassium 3.8 mmol/L (3.4-5.0); Sodium 137 mmol/L (137-145)
[2021-04-16 00:51] LABS: Add Urine Microscopic? YES; Appearance Urine Cloudy (Clear); Bacteria Urine 4+ /hpf; Bilirubin Urine Negative (Negative); Blood Urine 1+ (Negative); Color Urine Amber (Yellow); Glucose Urine UA Negative (Negative); Ketones Urine Trace mg/dL (Negative); Leukocyte Esterase Ur 3+ LEU/UL (Negative); Mucus Urine Heavy /lpf; Nitrate Urine Negative (Negative); Protein Urine 2+ mg/dL (Negative); RBC Urine 21-50 /hpf (0-2); Specific Grav Ur 1.019 (1.001-1.035); Squamous Epithelial Cell Urine Few /hpf (Few); WBC Clumps Urine Present /HPF; WBC Urine >75 /hpf
--- NOTE | 2021-04-16 03:01 | ED.GENADULT ---
HPI - General Adult General Chief complaint: Unspecified Stated complaint: UTI with weakness Time Seen by Provider: 04/15/21 23:13 Related Data Home Medications Medication Instructions Recorded Confirmed potassium citrate 10 mEq (1,080 10 meq PO TID 10/01/19 04/08/21 mg) tablet,extended release amlodipine 10 mg tablet 10 mg PO DAILY 07/14/20 04/08/21 multivitamin 1 cap PO DAILY 09/13/20 04/08/21 amitriptyline 10 mg PO HS 03/03/21 04/08/21 atorvastatin 80 mg PO HS 03/03/21 04/08/21 fluticasone propionate [Allergy 2 spray INTRANASAL PRN PRN 03/03/21 04/08/21 Relief (fluticasone)] meloxicam 15 mg PO PRN PRN 03/03/21 04/08/21 metformin 2,000 mg PO QPM 03/03/21 04/08/21 metoprolol succinate 150 mg PO HS 03/03/21 04/08/21 tamsulosin 0.4 mg PO HS 03/03/21 04/08/21 Allergies Allergy/AdvReac Type Severity Reaction Status Date / Time No Known Allergies Allergy Mild Verified 04/15/21 22:41 [facility] Past Medical History Medical History Abnormal EKG Acute right hip pain 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 urinary tract symptoms COVID-19 (06/10/20) Diabetes Diverticulosis Encounter for screening laboratory testing for COVID-19 virus High cholesterol Hypertension Lab test positive for detection of COVID-19 virus Neoplasm of skin of cheek Seborrheic dermatitis Skin cancer Vision changes Surgical History Surgical History History of cataract surgery History of fusion of cervical spine History of lumbar fusion S/P total hip arthroplasty Family History Family History Mother Patient's mother is , Onset Age: 89 Father Cerebrovascular accident, Onset Age: 73 Other Diabetes mellitus Heart disease Hypertension Social History Social History (Updated 04/08/21 @ 09:29 by Linda Seals MA) Smoking packs per day: 1 Smoking cigarettes per day: 20.0 Years smoked: 15 Smoking pack-years: 15.00 Smoking status: Former smoker Tobacco type: cigarettes Smoking end date: 03/09/70 Additional smoking assessment comments: DENIES ANY FORM OF TOBACCO USE Alcohol intake: former Substance use: never Substance use type: does not use Gender identity (if verbalized by the patient): Male Spiritual care concerns: No Course Vital Signs Vital signs: Vital Signs Temperature 38.6 C H 04/15/21 22:33 Pulse Rate 117 H 04/15/21 22:33 Respiratory Rate 21 H 04/15/21 22:33 Blood Pressure 125/63 04/15/21 22:33 Pulse Oximetry 92 04/15/21 22:33 Temperature 37.4 C 04/16/21 01:36 Pulse Rate 96 04/16/21 02:21 Respiratory Rate 25 H 04/16/21 02:21 Blood Pressure 129/71 04/16/21 02:21 Pulse Oximetry 93 04/16/21 02:21 Medical Decision Making Vital Signs Vital Signs: Vital Signs Temperature 38.6 C H 04/15/21 22:33 Pulse Rate 117 H 04/15/21 22:33 Respiratory Rate 21 H 04/15/21 22:33 Blood Pressure 125/63 04/15/21 22:33 Pulse Oximetry 92 04/15/21 22:33 Temperature 37.4 C 04/16/21 01:36 Pulse Rate 96 04/16/21 02:21 Respiratory Rate 25 H 04/16/21 02:21 Blood Pressure 129/71 04/16/21 02:21 Pulse Oximetry 93 04/16/21 02:21 Lab Data Result diagrams: 04/15/21 23:56 04/15/21 23:56 Labs: Lab Results 04/15/21 04/15/21 04/15/21 Range/Units 23:56 23:56 23:56 WBC 15.6 H (4.5-10.0) K/mm3 RBC 4.07 L (4.6-6.20) M/mm3 Hgb 13.0 L (14.0-18.0) g/dL Hct 39.7 L (42.0-52.0) % MCV 97.5 (80-100) fl MCH 31.9 (26-34) pg MCHC 32.7 (32-36) g/dl RDW 13.7 (11.5-14.5) % Plt Count 203 (150-375) k/mm3 MPV 10.2 (7.4-10.4) fl Immature Gran % (Auto) 0.8 H (0-0.5) % Neut % (Auto) 90.5 H (45.5-73.1) % Lymph % (Auto) 2.6 L (18.3-44.2) % [place] % (Auto) 5.7 (2.6-8.5) % Eos % (Au
[2021-04-16 03:05] LABS: Reflex Lactic Acid Yes or No Add Lactic
--- NOTE | 2021-04-16 03:47 | PC.NURSE ---
Report called to Alma DICK on [facility] at this time. This RN was informed that the room was not clean and will receive call when room is ready.
[2021-04-16 03:52] LABS: Lactic Acid 1.9 mmol/L (0.7-2.1)
--- NOTE | 2021-04-16 04:01 | PM.IMHP ---
H&P: HPI History of Present Illness Date/Time: 04/16/21 04:01 Chief Complaint: Fevers Narrative: This is a 80-year-old male with past medical history significant for degenerative joint disease status post right hip arthroplastic surgery roughly about a month ago, hypertension, seasonal allergies, type 2 diabetes mellitus. While after having his hip replacement surgery patient had complications with urinary retention requiring a Maloney catheter placement patient ended up with the catheter for close to a month he follow-up at the urology clinic had urodynamic studies done catheter was discontinued and patient several days after started having problems with urination feeling incomplete voiding weak stream poor appetite fevers and pressure in his lower abdomen. He was brought to the emergency room and he was found to have urinary retention of 500 cc and Maloney was placed. His WBC was 15 cells and he had significant wbc's in the urine analysis. Review of Systems Review of Systems: Narrative: Fevers urinary retention abdominal discomfort Constitutional: Constitutional: Reports chills, Reports fever(s), Reports malaise and Reports poor appetite Eyes: Eyes: Denies change in vision ENT: Denies nasal discharge, Denies nasal obstruction and Denies odynophagia Cardiovascular: Cardiovascular: Denies irregular heart rhythm, Denies radiating jaw, neck or arm pain, Denies palpitations and Denies dyspnea on exertion Respiratory: Respiratory: Denies cough Gastrointestinal: Gastrointestinal: Reports nausea and Reports vomiting Genitourinary: Genitourinary: Reports dysuria and Reports urinary hesitancy Musculoskeletal: Musculoskeletal: Reports no additional musculoskeletal complaints Comments: Status post right total hip arthroplasty Integumentary/Breasts: Skin/Breast: Denies rash Neurologic: Denies focal weakness and Denies Sensory deficit (Neuro) Psychiatric: Psychiatric: Reports no additional psychiatric complaints Endocrine: Endocrine: Reports no additional endocrine complaints Hematologic/Lymphatic: Hematologic/Lymphatic: Reports no additional hematologic/lymphatic complaints Allergic/Immunologic: Allergic/Immunologic: Reports no additional allergic/immunologic complaints PMFSH Past Medical History Medical History (Updated 04/16/21 @ 04:21 by Zoe Koroma MD) Abnormal EKG Acute right hip pain 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 urinary tract symptoms COVID-19 (06/10/20) Diabetes Diverticulosis Encounter for screening laboratory testing for COVID-19 virus High cholesterol Hypertension Lab test positive for detection of COVID-19 virus Neoplasm of skin of cheek Seborrheic dermatitis Skin cancer Vision changes Surgical History Surgical History History of cataract surgery History of fusion of cervical spine History of lumbar fusion S/P total hip arthroplasty Family History Family History Mother Patient's mother is , Onset Age: 89 Father Cerebrovascular accident, Onset Age: 73 Other Diabetes mellitus Heart disease Hypertension Social History Social History (Updated 04/08/21 @ 09:29 by Linda Seals MA) Smoking packs per day: 1 Smoking cigarettes per day: 20.0 Years smoked: 15 Smoking pack-years: 15.00 Smoking status: Former smoker Tobacco type: cigarettes Smoking end date: 03/09/70 Additional smoking assessment comments: DENIES ANY FORM OF TOBACCO USE Alcohol intake: former Substance use: never Substance use type: does not use Gender identity (if verbalized by the patient): Male Spiritual care concerns: No Meds Home Medications and Allergies Home Medications Medication Instructions Recorded Confirmed Type potassium citrate 10 mEq (1,080 10 meq PO TID 10/01/19 04/08/21 History mg) tablet,extended release amlodipine 10 mg
--- NOTE | 2021-04-16 04:41 | ADMGEN ---
This patient, Saravanan Ralph, was admitted to Medical Room [facility] [id number]. Patient/family oriented to hospital policies and general routines including ID bracelet, bed and alarms, visiting hours, pain management, procedures, bathroom and other care routines, personal items, smoking policy, room service/diet, and visiting hours. Information on how to activate the Rapid Response Team has been discussed. Patient/Family are encouraged to report perceived risks to care and to ask questions if they do not understand what they are told or what they should do.
[2021-04-16] MEDS: SODIUM CHLORIDE 0.9% IV 1,000 ML 125 ML IV CONT (05:57)
[2021-04-16 08:23] LABS: Hematocrit 40.7 % (42.0-52.0); Hemoglobin 13.4 g/dL (14.0-18.0); Mean Corpuscular HGB Conc 32.9 g/dl (32-36); Mean Corpuscular Volume 97.1 fl (80-100); Mean Platelet Volume 10.2 fl (7.4-10.4); Platelet Count Result 201 k/mm3 (150-375); Red Blood Count 4.19 M/mm3 (4.6-6.20); Red Cell Distribution Width 13.8 % (11.5-14.5); White Blood Count 11.5 K/mm3 (4.5-10.0)
[2021-04-16 08:38] LABS: Anion Gap 14 mmol/L (8-16); Blood Urea Nitrogen 34 mg/dL (9-20); Calcium 9.2 mg/dL (8.4-10.2); Carbon Dioxide 23 mmol/L (22-30); Chloride 102 mmol/L (98-107); Estimated CRCL calculation 56 ml/min; Estimated Glomerular Filt Rate 59; Glucose 138 mg/dL (75-110); Sodium 139 mmol/L (137-145)
[2021-04-16] MEDS: DOCUSATE SODIUM 100 MG CAPSULE PO ×2 (08:52→17:23)
--- NOTE | 2021-04-16 09:06 | WPDURCON ---
Assessment and Plan Assessment and plan (1) Acute UTI: Code(s): N39.0 - Urinary tract infection, site not specified Status: Acute Assessment and Plan: Agree with broad spectrum IV antibiotics, await cultures (2) Acute urinary retention: Code(s): R33.8 - Other retention of urine Status: Acute (3) Urinary retention: Code(s): R33.9 - Retention of urine, unspecified Status: Acute Assessment and Plan: Plan to keep parra for bladder rest, continue antibiotics, continue flomax. May need further prostate interventions if retention persists after UTI has been treated. Urology Consult Note HPI Date Seen: 04/16/21 Requesting Physician: Marilu Colunga PA-C Primary Care Provider: Kings Díaz MD Consult Narrative Narrative: Saravanan Ralph is a 80 year old male who is well known to Dr Albrecht, who recently had a bout of urinary retention after right hip replacement. He had been having issues of retention since his surgery in March. He underwent urodynamic studies and had his parra removed on Sunday. he noticed progressive weakening of his urinary stream and voiding difficulty yesterday with associated low grade fevers. He denies gross hematuria. He has been taking Flomax. He had parra placed in ER with 500cc returned and relief of his symptoms. He has a hx of nephrolithiasis. Review of Systems Review of Systems: All systems reviewed & are unremarkable except as noted in HPI and below Constitutional: Constitutional: Reports as per HPI Eyes: Eyes: Denies change in vision ENT: Reports system reviewed and no additional complaints, except as documented Cardiovascular: Cardiovascular: Denies chest pain with activity and Denies dyspnea Respiratory: Respiratory: Reports no additional respiratory complaints Gastrointestinal: Gastrointestinal: Reports no additional gastrointestinal complaints Genitourinary: Genitourinary: Reports as per HPI Musculoskeletal: Musculoskeletal: Reports as per HPI Integumentary/Breasts: Skin/Breast: Reports system reviewed and no additional complaints, except as docu Neurologic: Reports system reviewed and no additional complaints, except as documented Psychiatric: Psychiatric: Reports no additional psychiatric complaints Endocrine: Endocrine: Reports no additional endocrine complaints Hematologic/Lymphatic: Hematologic/Lymphatic: Reports no additional hematologic/lymphatic complaints Allergic/Immunologic: Allergic/Immunologic: Reports no additional allergic/immunologic complaints [facility] Past Medical History Medical History (Updated 04/16/21 @ 04:21 by Zoe Koroma MD) Abnormal EKG Acute right hip pain 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 urinary tract symptoms COVID-19 (06/10/20) Diabetes Diverticulosis Encounter for screening laboratory testing for COVID-19 virus High cholesterol Hypertension Lab test positive for detection of COVID-19 virus Neoplasm of skin of cheek Seborrheic dermatitis Skin cancer Vision changes Surgical History Surgical History History of cataract surgery History of fusion of cervical spine History of lumbar fusion S/P total hip arthroplasty Family History Family History Mother Patient's mother is , Onset Age: 89 Father Cerebrovascular accident, Onset Age: 73 Other Diabetes mellitus Heart disease Hypertension Social History Social History (Updated 04/08/21 @ 09:29 by Linda Seals MA) Smoking packs per day: 1 Smoking cigarettes per day: 20.0 Years smoked: 15 Smoking pack-years: 15.00 Smoking status: Former smoker Additional smoking assessment comments: DENIES ANY FORM OF TOBACCO USE Alcohol intake: former Substance use: never Substance use type: does not use Gender identity (if verbalized by the patient): Male Spir
--- NOTE | 2021-04-16 10:35 | PM.IMPN ---
Progress Note: A&P Assessment and Plan (1) Acute UTI: Code(s): N39.0 - Urinary tract infection, site not specified Status: Acute Assessment and Plan: Urinalysis grossly abnormal. T-max 101.4? He has remained afebrile today. Leukocytosis is improving. Continue empiric IV ceftriaxone Urine cultures pending. Await results and tailor antibiotics accordingly Will discontinue IV fluids as he is tolerating oral intake (2) Sepsis: Code(s): A41.9 - Sepsis, unspecified organism Status: Acute Assessment and Plan: Met criteria for sepsis on arrival with leukocytosis and fever. qSOFA score 1. Source of infection is UTI. Lactic acid levels elevated at arrival but have normalized. Leukocytosis improved. Afebrile today. Blood cultures pending Monitor vital signs and labs Continue with treatment for UTI as above. (3) Acute urinary retention: Code(s): R33.8 - Other retention of urine Status: Acute Assessment and Plan: Ongoing issue for 1 month since hip surgery. He completed outpatient urodynamics with urology about 1 week ago and Maloney was removed at that time. Urinary retention issues recurred and he was unable to urinate at home Continue Maloney catheter while treating acute UTI Appreciate urology consultation and recommendations Continue Flomax (4) Hypertension: Code(s): I10 - Essential (primary) hypertension Status: Inactive Assessment and Plan: Blood pressure reviewed and has been well controlled. Last BP 118/77. Continue metoprolol, amlodipine, enalapril Monitor blood pressure trends (5) Type 2 diabetes mellitus without complication, without long-term current use of insulin: Code(s): E11.9 - Type 2 diabetes mellitus without complications Status: Acute Assessment and Plan: Last A1c was 7.0 (03/03/21). Blood sugars reviewed and are generally well controlled. Initiate Accu-Cheks, sliding scale insulin, and hypoglycemic protocol Holding metformin (6) Peripheral polyneuropathy: Code(s): G62.9 - Polyneuropathy, unspecified Status: Acute Assessment and Plan: Stable. Continue home gabapentin (7) S/P total hip arthroplasty: Qualifiers: Laterality: right Qualified Code(s): Z96.641 - Presence of right artificial hip joint Code(s): Z96.649 - Presence of unspecified artificial hip joint Status: Acute Assessment and Plan: Secondary to degenerative joint disease. Underwent left total hip arthroplasty on 03/16/2021. He has plans for outpatient physical therapy starting on 04/29/2021 Follow-up with surgeon Dr. Presley as scheduled Holding high-dose aspirin (650 mg) which was prescribed for DVT prophylaxis postoperatively. Will continue with SCDs. Subjective Date/time seen: 04/16/21 10:35 Interval history: Date of service: 04/16/2021 Saravanan Ralph is a 80-year-old male with a history type 2 diabetes mellitus, hypertension, recent right total hip arthroplasty with subsequent urinary retention. He had a Maloney catheter for nearly 1 month which was removed approximately 1 week ago. He is now seen in follow-up for UTI and urinary retention. He is feeling better today. He no longer has fevers. No chills, no sweats. No abdominal pain, suprapubic pain, flank pain, or back pain. His appetite has improved and he was able to eat his breakfast this morning. He denies nausea or vomiting. He feels a bit weaker than normal but denies dizziness or lightheadedness. He has no issues with his current Maloney catheter in place. Has not noticed any hematuria. Denies shortness of breath, cough, or chest pain. His right hip pain is well controlled and he is able to ambulate using his walker. He does note some neuropathic pain of his right lower extremity that started recently after his right hip surgery. Denies headache or body aches. Review of Systems Revi
[2021-04-16] MEDS: amLODIPine BESYLATE 5 MG TABLET 10 MG PO (12:06)
[2021-04-16] MEDS: ENALAPRIL MALEATE 10 MG TABLET 20 MG PO (12:06)
[2021-04-16] MEDS: GABAPENTIN 300 MG CAPSULE PO ×2 (12:06→17:23)
[2021-04-16 12:17] LABS: Glucose Point of Care 148 mg/dl (65-105)
[2021-04-16 18:06] LABS: Glucose Point of Care 126 mg/dl (65-105)
[2021-04-16] MEDS: METOPROLOL SUCCINATE EXT REL 50 MG TABCR 150 MG PO (20:24)
[2021-04-16] MEDS: TAMSULOSIN HCL 0.4 MG CAPSULE PO (20:24)
[2021-04-16] MEDS: ATORVASTATIN 40 MG TABLET 80 MG PO (20:24)
[2021-04-16 20:49] LABS: Glucose Point of Care 170 mg/dl (65-105)
[2021-04-17 05:33] VITALS: BP 136/63; PULSE 91; RESP 16; TEMP 36.4; O2SAT 93
[2021-04-17 05:57] LABS: Basophils Percent Auto 0.3 % (0.2-1.2); Eosinophils Absolute Auto 0.1 K/mm3 (0-0.3); Eosinophils Percent Auto 0.9 % (0-4.4); Hematocrit 36.1 % (42.0-52.0); Hemoglobin 11.9 g/dL (14.0-18.0); Immature Granulocyte Absolute 0.04 K/mm3 (0.00-0.031); Immature Granulocyte Percent A 0.5 % (0-0.5); Lymphocytes Absolute Auto 1.09 K/mm3 (0.9-3.2); Lymphocytes Percent Auto 13.7 % (18.3-44.2); Mean Corpuscular Hemoglobin 31.8 pg (26-34); Mean Corpuscular Volume 96.5 fl (80-100); Mean Platelet Volume 10.6 fl (7.4-10.4); Monocytes Absolute Auto 0.9 K/mm3 (0.1-0.6); Monocytes Percent Auto 11.2 % (2.6-8.5); Neutrophils Absolute Auto 5.8 K/mm3 (1.3-6.7); Neutrophils Percent Auto 73.4 % (45.5-73.1); Platelet Count Result 178 k/mm3 (150-375); Red Blood Count 3.74 M/mm3 (4.6-6.20); Red Cell Distribution Width 13.4 % (11.5-14.5)
[2021-04-17 06:21] LABS: Anion Gap 8 mmol/L (8-16); Blood Urea Nitrogen 22 mg/dL (9-20); Calcium 8.4 mg/dL (8.4-10.2); Carbon Dioxide 25 mmol/L (22-30); Chloride 103 mmol/L (98-107); Estimated CRCL calculation 66 ml/min; Estimated Glomerular Filt Rate > 60; Glucose 132 mg/dL (75-110); Potassium 3.6 mmol/L (3.4-5.0); Sodium 136 mmol/L (137-145)
[2021-04-17 07:44] LABS: Glucose Point of Care 145 mg/dl (65-105)
[2021-04-17] MEDS: DOCUSATE SODIUM 100 MG CAPSULE PO (08:13)
[2021-04-17] MEDS: GABAPENTIN 300 MG CAPSULE PO ×2 (08:13→12:46)
[2021-04-17] MEDS: amLODIPine BESYLATE 5 MG TABLET 10 MG PO (08:13)
[2021-04-17] MEDS: ENALAPRIL MALEATE 10 MG TABLET 20 MG PO (08:13)
--- NOTE | 2021-04-17 09:49 | WPDUROPN2 ---
Progress Note: A&P Assessment and Plan (1) Acute UTI: Code(s): N39.0 - Urinary tract infection, site not specified Status: Acute Assessment and Plan: urine culture pending continue broad spectrum IV abx wbc normalized (2) Acute urinary retention: Code(s): R33.8 - Other retention of urine Status: Acute Assessment and Plan: maintain parra, continue flomax, void trial later this week with Dr Albrecht (3) Urinary retention: Code(s): R33.9 - Retention of urine, unspecified Status: Acute Subjective Subjective Date/Time Seen: 04/17/21 09:49 feeling better. NAOE. no hematuria or pain. slept well. Review of Systems Constitutional: Constitutional: Reports no additional constitutional complaints Eyes: Eyes: Reports no additional eye complaints Cardiovascular: Cardiovascular: Denies chest pain and Denies dyspnea Respiratory: Respiratory: Reports no additional respiratory complaints Gastrointestinal: Gastrointestinal: Reports no additional gastrointestinal complaints Genitourinary: Genitourinary: Reports as per HPI Musculoskeletal: Musculoskeletal: Reports no additional musculoskeletal complaints Hematologic/Lymphatic: Hematologic/Lymphatic: Reports no additional hematologic/lymphatic complaints Objective Data Vital Signs Vital Signs: Vital Signs - 24 hr 04/16/21 15:50 04/16/21 20:08 04/16/21 20:24 Temperature 36.7 C 36.6 C Pulse Rate 102 H 111 H 111 H Respiratory Rate 20 18 Blood Pressure 129/67 157/85 H Pulse Oximetry 96 95 04/17/21 05:33 Temperature 36.4 C Pulse Rate 91 Respiratory Rate 16 Blood Pressure 136/63 Pulse Oximetry 93 Intake/Output Intake/Output: Intake & Output 04/14/21 04/15/21 04/16/21 04/17/21 23:59 23:59 23:59 23:59 Intake Total 1280 640 Output Total 1525 650 Balance -245 -10 Meds/Results Medications: Active Medications Generic Name Dose Route Start Last Admin Trade Name Freq PRN Reason Stop Dose Admin Acetaminophen 650 mg 04/16/21 03:04 Acetaminophen 325 Mg Tablet PO Q4H PRN Mild Pain (1-3) or Fever Amlodipine Besylate 10 mg 04/16/21 09:00 04/17/21 08:13 Amlodipine Besylate 5 Mg Tablet PO 10 mg DAILY LEANN Administration Atorvastatin Calcium 80 mg 04/16/21 21:00 04/16/21 20:24 Atorvastatin 40 Mg Tablet PO 80 mg HS LEANN Administration Dextrose 12.5 gm 04/16/21 10:57 Dextrose 50% 25 Gm/50 Ml Syringe IV PUSH PRN PRN Hypoglycemia Protocol Docusate Sodium 100 mg 04/16/21 09:00 04/17/21 08:13 Docusate Sodium 100 Mg Capsule PO 100 mg BID LEANN Administration Enalapril Maleate 20 mg 04/16/21 09:00 04/17/21 08:13 Enalapril Maleate 10 Mg Tablet PO 20 mg DAILY LEANN Administration Fluticasone Propionate 2 spray 04/16/21 07:21 Fluticasone Propionate 0.05% Na Spr 16 Gm Btl (*Bkc) NASAL QAM PRN Allergy Symptoms Gabapentin 300 mg 04/16/21 13:00 04/17/21 08:13 Gabapentin 300 Mg Capsule PO 300 mg TID LEANN Administration Glucagon 1 mg 04/16/21 10:57 Glucagon For Inj 1 Mg Vial IM PRN PRN Hypoglycemia Protocol Glucose 15 gm 04/16/21 10:57 Glucose Oral Gel 15 Gm Of Glucse In 37.5 Gm Tube PO PRN PRN Hypoglycemia Protocol Ceftriaxone Sodium/Dextrose 1 gm in 50 mls @ 100 mls/hr 04/16/21 21:00 04/16/21 20:54 Rocephin 1 Gm/D5w 50 Ml IVPB Infused HS LEANN Infusion Dextrose 1,000 mls @ 100 mls/hr 04/16/21 10:57 Dextrose 5% 1,000 Ml IVPB PRN PRN Hypoglycemia Protocol Insulin Aspart 2 - 5 units 04/16/21 12:00 04/17/21 08:11 Insulin Aspart (*Bkc) 100 Units/Ml SUB-Q Not Given TIDWM LEANN Protocol Metoprolol Succinate 150 mg 04/16/21 21:00 04/16/21 20:24 Metoprolol Succinate Ext Rel 50 Mg Tabcr PO 150 mg HS LEANN Administration Tamsulosin HCl 0.4 mg 04/16/21 21:00 04/16/21 20:24 Tamsulosin Hcl 0.4 Mg Capsule PO 0.4 mg
[2021-04-17 12:31] LABS: Glucose Point of Care 169 mg/dl (65-105)
[2021-04-17 14:00] VITALS: BP 131/62; PULSE 77; RESP 20; TEMP 36.7; O2SAT 96
--- NOTE | 2021-04-17 14:29 | PM.DS ---
DS: Admitting Diagnosis Admitting Diagnosis Admitting Diagnosis: UTI DS: Discharge Diagnosis Discharge Diagnosis (1) Acute UTI: Code(s): N39.0 - Urinary tract infection, site not specified Status: Acute Assessment and Plan: Urinalysis grossly abnormal. He had associated fever and leukocytosis which resolved. He was started on empiric IV ceftriaxone. Preliminary urine cultures demonstrated growth of Gram-negative bacilli. He was discharged with a 7 day course of p.o. cefdinir. He was instructed that he will be contacted if any adjustments to his antibiotics are required. (2) Sepsis: Code(s): A41.9 - Sepsis, unspecified organism Status: Acute Assessment and Plan: Met criteria for sepsis on arrival with leukocytosis, tachycardia, tachypnea, and fever. qSOFA score 1. Source of infection is UTI. Lactic acid levels elevated at arrival but normalized. His fever resolved and his white count normalized. Preliminary blood cultures with no growth to date and final cultures will be monitored. (3) Acute urinary retention: Code(s): R33.8 - Other retention of urine Status: Acute Assessment and Plan: Ongoing issue for 1 month since hip surgery. He completed outpatient urodynamics with urology about 1 week ago and Maloney was removed at that time. Urinary retention issues recurred and he was unable to urinate at home. Maloney catheter was re-initiated at presentation on 04/16/2021. He was discharged with Maloney and will follow-up it with urology in 1 week for voiding trial. Continue Flomax. (4) Hypertension: Code(s): I10 - Essential (primary) hypertension Status: Inactive Assessment and Plan: Blood pressure reviewed and was well controlled. Continue metoprolol, amlodipine, enalapril (5) Type 2 diabetes mellitus without complication, without long-term current use of insulin: Code(s): E11.9 - Type 2 diabetes mellitus without complications Status: Acute Assessment and Plan: Last A1c was 7.0 (03/03/21). Blood sugars reviewed and were generally well controlled on sliding scale insulin. Continue home metformin. (6) Peripheral polyneuropathy: Code(s): G62.9 - Polyneuropathy, unspecified Status: Acute Assessment and Plan: Stable. Continue home gabapentin (7) S/P total hip arthroplasty: Qualifiers: Laterality: right Qualified Code(s): Z96.641 - Presence of right artificial hip joint Code(s): Z96.649 - Presence of unspecified artificial hip joint Status: Acute Assessment and Plan: Secondary to degenerative joint disease. Underwent left total hip arthroplasty on 03/16/2021. He has plans for outpatient physical therapy starting on 04/29/2021. Follow-up with surgeon Dr. Presley as scheduled DS: Summary Hospital Course Reason for hospitalization: UTI Hospital Course: Date of admission: 04/16/21 Date of discharge: 04/17/21 Saravanan Ralph is a 80-year-old male with a history type 2 diabetes mellitus, hypertension, recent right total hip arthroplasty with subsequent urinary retention. He had a Maloney catheter for nearly 1 month which was removed approximately 1 week ago. He presented to the emergency department on 04/16/21 with complaints of urinary retention. He had been feeling weaker and was unable to urinate. Upon presentation to the emergency department, was febrile at 101.4?, mildly tachycardic and tachypneic, additional vital signs stable, white blood cell count was 15.6, hemoglobin 13.0, hematocrit 39.7, platelets 203, BMP unremarkable with the electrolytes stable, urinalysis grossly abnormal, lactic acid elevated at 2.2, and CXR was negative for acute cardiopulmonary findings. He was admitted to the hospitalist service for further evaluation and management was seen in consultation by Urology. Please see above for further details. Maloney catheter was started again and he will follow up with
== END 2021-04-17 15:30 | disposition home or self-care (01) ==
LOC: ANHED 04-16 03:03 → ANH3MED 04-16 04:55
PROVIDERS: Physician Assistant; Admitting Provider Internal Medicine; Emergency Provider Emergency Medicine; PCP Family Medicine; Visit Provider Internal Medicine
DX: N39.0 Urinary tract infection, site not specified (principal); B96.20 Unspecified Escherichia coli [E. coli] as the cause of diseases classified elsewhere; R33.9 Retention of urine, unspecified; I10 Essential (primary) hypertension; E11.42 Type 2 diabetes mellitus with diabetic polyneuropathy; Z96.641 Presence of right artificial hip joint
CPT/HCPCS: 36415; 71045; 80048; 80053; 81001; 82948; 83605; 85025; 85027; 87040; 87077; 87086; 87088; 87186; 96365; 96367; 99285; A9270; G0378; J0131; J0696; J7030

== ENCOUNTER 2021-05-02 18:17 | Emergency (ER) | payer MEDICARE, SELFPAY ==
[2021-05-02 18:21] VITALS: BP 141/77; PULSE 115; RESP 20; TEMP 37.5; O2SAT 98
--- NOTE | 2021-05-02 18:21 | ED.FEMALEGU ---
HPI - Female Genitourinary General Chief complaint: Urogenital-Male Stated complaint: POS UTI Time Seen by Provider: 05/02/21 18:32 Source: patient and RN notes reviewed Mode of arrival: ambulatory Limitations: no limitations History of Present Illness HPI Narrative: 80-year-old male presents concern for fever and chills this morning. Reports a recent hospitalization for urinary tract infection for which his symptoms were fever and chills. He denies dysuria, frequency, urgency, incontinence, body aches, sweats, confusion. He denies testicular swelling, redness, pain, penile discharge. He reports normal urine flow, he is able to fully empty his bladder. He reports he has been followed by urologist after he had a long-term Maloney catheter during a hospitalization for hip surgery. He has not had the Maloney catheter for several weeks. Reports symptoms of his urinary tract infection for which she was hospitalized resolved. MD elicited complaint: UTI Related Data Home Medications Medication Instructions Recorded Confirmed potassium citrate 10 mEq (1,080 10 meq PO TID 10/01/19 05/02/21 mg) tablet,extended release amlodipine 10 mg tablet 10 mg PO DAILY 07/14/20 05/02/21 multivitamin 1 cap PO DAILY 09/13/20 05/02/21 amitriptyline 10 mg PO HS 03/03/21 05/02/21 atorvastatin 80 mg PO HS 03/03/21 05/02/21 fluticasone propionate [Allergy 2 spray INTRANASAL PRN PRN 03/03/21 05/02/21 Relief (fluticasone)] meloxicam 15 mg PO PRN PRN 03/03/21 05/02/21 metformin 2,000 mg PO QPM 03/03/21 05/02/21 metoprolol succinate 150 mg PO HS 03/03/21 05/02/21 tamsulosin 0.4 mg PO HS 03/03/21 05/02/21 Tylenol 650 mg PO TID PRN 04/16/21 05/02/21 Allergies Allergy/AdvReac Type Severity Reaction Status Date / Time No Known Allergies Allergy Mild Verified 05/02/21 18:19 Review of Systems Review of Systems: Narrative: CONSTITUTIONAL: Denies malaise, sweats. Reports chills, fever. CARDIOVASCULAR: Denies chest pain, palpitations, or edema. RESPIRATORY: Denies cough or dyspnea. GASTROINTESTINAL: Denies abdominal pain, nausea, vomiting, diarrhea GENITOURINARY: Denies dysuria frequency, urgency or hematuria. MUSCULOSKELETAL: Denies back pain, or myalgia. All systems reviewed & are unremarkable except as noted in HPI and below PMFSH Past Medical History Medical History (Updated 05/02/21 @ 18:45 by Vanita Kline NP) Abnormal EKG Acute right hip pain 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 urinary tract symptoms COVID-19 (06/10/20) Diabetes Diverticulosis Encounter for screening laboratory testing for COVID-19 virus High cholesterol Hypertension Lab test positive for detection of COVID-19 virus Neoplasm of skin of cheek Seborrheic dermatitis Skin cancer Vision changes Surgical History Surgical History History of cataract surgery History of fusion of cervical spine History of lumbar fusion S/P total hip arthroplasty Family History Family History Mother Patient's mother is , Onset Age: 89 Father Cerebrovascular accident, Onset Age: 73 Other Diabetes mellitus Heart disease Hypertension Social History Social History (Updated 04/08/21 @ 09:29 by Linda Seals MA) Smoking packs per day: 1 Smoking cigarettes per day: 20.0 Years smoked: 15 Smoking pack-years: 15.00 Smoking status: Former smoker Additional smoking assessment comments: DENIES ANY FORM OF TOBACCO USE Alcohol intake: former Substance use: never Substance use type: does not use Gender identity (if verbalized by the patient): Male Spiritual care concerns: No Comments At time of signature, agree with nursing past medical, surgical, social and family history. There is no relevant family history pertinent to the presenting complaint Exam Narrative: Exam Narrative: GENERAL: Well-appearing, well-nourished,
[2021-05-02 18:30] VITALS: BP 141/77; PULSE 115; RESP 20; TEMP 37.5; O2SAT 98
== END 2021-05-02 18:51 | disposition home or self-care (01) ==
PROVIDERS: Emergency Provider Nurse Practitioner; PCP Family Medicine
DX: N39.0 Urinary tract infection, site not specified (principal); F17.210 Nicotine dependence, cigarettes, uncomplicated; N40.0 Benign prostatic hyperplasia without lower urinary tract symptoms; E11.9 Type 2 diabetes mellitus without complications; Z86.16 Personal history of COVID-19; E78.00 Pure hypercholesterolemia, unspecified; I10 Essential (primary) hypertension; Z85.828 Personal history of other malignant neoplasm of skin
CPT/HCPCS: 81003; 87077; 87086; 87186; 99213; G0463

== ENCOUNTER 2021-05-30 15:15 | Outpatient (RCR) | payer MEDICARE, SELFPAY ==
--- NOTE | 2021-04-29 15:18 | PTOPEVAL ---
PHYSICAL THERAPY EVALUATION Thank you for referring Saravanan Ralph to [facility].? Saravanan was evaluated for the dx of right MARY. The patient is scheduled to be seen for therapy? 2 x/week for 4 weeks. Please review, sign, date and return this plan of care SAYRA. I agree with and certify that the following plan of care is medically necessary. Referring Physician Date Attending Provider: Chris Presley MD *PT Outpatient Evaluation Start: 04/29/21 14:03 Freq: Status: Active Protocol: Document 04/29/21 14:03 [facility] (Rec: 04/29/21 14:54 [facility] [id number]) Therapy Assessment Status Assessment Status Assessment Status Evaluation Evaluation Information Problem Diagnosis MARY right 03/16/21 Onset chronic pain Cause DJD Additional Evaluation Detail The patient reports walking with a cane or walker for over a year due to needing a MARY but on hold due to cOVID. The patient reports the past spinal surgeries recovered to a point of not needing a device and has a goal to walk without a device SAYRA. The patient had complications with a UTI following the recent MARY. Prior Level of Function Home Setting Home Type House,Multiple Levels Environmental Barriers Stairs, Threshold Living Situation With Spouse Mobility Assistive Devices (Used Last 3 Cane,Walker, Wheeled Months) Toileting Equipment Commode, 3-in-1,Tall Toilet Pain Assessment Timing of Pain Assessment Timing of Pain Assessment Assessment Pain Scale Pain Scale Used Numeric (1 - 10) Self Report Pain Assessment Right Lower Leg(s) Reported Pain Level 6 Pain Description Throbbing Pain Frequency Acute Other Pain Description random and more at night; pain comes and goes; patient has no hip pain Pain Score Pain Score 6: Self Report Interventions Used Interventions Used By Clinicians Education Pain Relief Interventions Used By Inactivity/Rest Patient Lower Extremity Range of Motion General Lower Extremity Range of Motion Reason Not Measured WFL/Left,WFL/Right,Surgery Precautions Lower Extremity Muscle Strength Testing General Lower Extremity Strength Reason Not Measured WNL/Left Gross Lower Extremity Strength right hip flexion 4/5, IR 4-/5,
--- NOTE | 2021-05-30 16:10 | PTOPEVAL ---
PHYSICAL THERAPY DISCHARGE Thank you for referring Saravanan Ralph to [facility].? The patient has met his goals after 9 visits for the dx of right MARY. [place] PT. Please review, sign, date and return this plan of care SAYRA. I agree with and certify that the following plan of care is medically necessary. Referring Physician Date Attending Provider: Chris Presley MD *PT Outpatient Discharge Start: 04/29/21 14:03 Freq: Status: Active Protocol: Document 05/30/21 15:13 [facility] (Rec: 05/30/21 16:08 MLV [id number]) Therapy Assessment Status Assessment Status Assessment Status Discharge Evaluation Information Problem Diagnosis MARY right 03/16/21 Onset chronic pain Cause DJD Additional Evaluation Detail The patient feels he has improved with his strength and balance and feels his walking is safer. The patient plans to continue his exercises on his own and will start going to the gym again. Patient asked for input to specific things to do/don't do at the gym. The patient uses a cane or no device in the home and uses a cane for outings for safety. Pain Assessment Timing of Pain Assessment Timing of Pain Assessment Assessment Self Report Self Report Pain Level 0 Pain Score Pain Score 0: Self Report Lower Extremity Muscle Strength Testing General Lower Extremity Strength Gross Lower Extremity Strength right hip flexion 4/5, IR 4/5, ER 4/5, extension 4/5, abduction 4-/5 right knee 5/5, right ankle DF 1/5, PF 3-/5, inversion/ eversion 2/5; patient advanced to green tband LE exercises at 10 reps; red band done at 35-45 reps Balance Assessment Time Up Go (TUG) Timed Up and Go Test (TUG) (Seconds) 21 Assistive Devices Cane, Straight Comments improved with time and balance Gait Assessment Gait Assessment Ambulation Assistive Devices Cane Weight Bearing Status - Left Full Weight Bearing Status - Right Full Maintains Weight Bearing Status Yes Ambulation Distance 999 Query Text:(Feet) Ambulation Destination In Gym Ambulation Direction Forward Ambulation Surface Level
== END 2021-07-13 11:33 | disposition home or self-care (01) ==
LOC: ANHPT 15:15
PROVIDERS: PCP Family Medicine; Visit Provider Orthopaedic Surgery
DX: Z47.1 Aftercare following joint replacement surgery (principal); Z96.641 Presence of right artificial hip joint
CPT/HCPCS: 97110; 97116; 97162

== ENCOUNTER 2021-06-22 18:19 | Inpatient (IN) | payer MEDICARE, SELFPAY ==
[2021-06-22] VITALS (10 sets, daily range): BP systolic 116–154; BP diastolic 69–82; PULSE 92–113; RESP 18–28; TEMP 36.3–38.6; O2SAT 91–98; BMI 22.9
--- NOTE | ~2021-06-22 | CT_ITS ---
EXAMINATION: CT abdomen pelvis wo con DATE: 06/22/2021 19:04 INDICATION: Right flank pain. History kidney stones. TECHNIQUE: Computed tomography (CT) of the abdomen and pelvis was performed without intravenous contr ast. Automated exposure control and iterative reconstruction technique were employed. Exam dose: 419 .70 mGy-cm total exam DLP. COMPARISON: None. FINDINGS: There is infiltrate, atelectasis and/or fibrotic change primarily in the lower lobes. Normal heart size. Coronary artery calcifications. No pericardial or pleural effusion. Small sliding hiatal hernia. 12 mm right hepatic cyst. One or more very small stones are noted along the dependent aspect of the gallbladder versus less lik kraig gallbladder wall focal calcification. No gallbladder wall thickening or pericholecystic fluid or fat stranding is evident. No bile duct dilatation. Normal splenic size. No pancreatic mass lesion, ca lcification or ductal dilatation. 2.2 cm right adrenal mass. If there no known malignancy, this most likely an adrenal adenoma. Normal left adrenal gland. Approximately 11.5 x 11.7 millimeter right ureteropelvic junction calculus with prominent right hydro nephrosis as a result. There are numerous bilateral nonobstructing stones scattered throughout both kidneys, including a lar ge calcified 12.8 x 23 mm stone at the lower pole of the left kidney. There is right asymmetric perinephric stranding and fluid. No left ureteral calculus or left hydroureteronephrosis. There is some air within the urinary bladder lumen. There is moderate diffuse urinary bladder wall th ickening. There is prostate enlargement and minimal calcification. There is atherosclerotic calcification of the abdominal aorta but no aneurysm. No intraperitoneal or retroperitoneal or pelvic mass lesion or adenopathy or ascites is detected. There is a prominent amount of fecal material in the rectum and colon. There is a suture line of the colon. No apparent bowel obstruction. No intraperitoneal free air. There is prominent streak artifact from a right hip arthroplasty. Posterior lumbar spinal surgical fusion. IMPRESSION: Up to 11.7 mm obstructing right ureteropelvic junction calculus with prominent right hyd ronephrosis Extensive bilateral nonobstructive nephrolithiasis Prostate enlargement Small amount of air within the urinary bladder, which may be due to instrumentation or infection 12 mm hepatic cyst 2.2 cm right adrenal mass Small sliding hiatal hernia Postoperative change of the colon Patchy infiltrate, atelectasis and/or fibrotic change involving primarily the lower lobes Status post right hip arthroplasty Reviewed, dictated and finalized at [facility]. Reviewed, dictated and finalized at [facility]. IMPRESSION: Up to 11.7 mm obstructing right ureteropelvic junction calculus wi th prominent right hydronephrosis Extensive bilateral nonobstructive nephrolithiasis Prostate enlargement Small amount of air within the urinary bladder, which may be due to instrumenta tion or infection 12 mm hepatic cyst 2.2 cm right adrenal mass Small sliding hiatal hernia Postoperative change of the colon Patchy infiltrate, atelectasis and/or fibrotic change involving primarily the l ower lobes Status post right hip arthroplasty
--- NOTE | ~2021-06-22 | XR_ITS ---
XR chest 1V portable DATE: 06/22/2021 19:25 INDICATION: Fever, low oxygen saturation. Nausea and vomiting. Right flank pain. Hypertension. Covid-positive in November 2020 Right ureteropelvic junction obstructing calculus with prominent right hydronephrosis, bilateral exte nsive nonobstructive nephrolithiasis TECHNIQUE: Portable AP chest on 06/22/2021 at 1912 hours COMPARISON: 04/15/2021 portable AP chest 06/22/[address] abdomen pelvis FINDINGS: There is mild elevation right leaf of diaphragm, stable since 04/16/2021 Mild bibasilar infiltrate, atelectasis and/or scarring. Heart size appears normal. Is aortic arch calcification. Status post posterior cervical spine surgical fusion. IMPRESSION: Mild patchy infiltrate, atelectasis or scarring at the lung bases Reviewed, dictated and finalized at location [facility].
--- NOTE | ~2021-06-22 | XR_ITS ---
EXAMINATION: XR retrograde pyelo w/stent RT DATE: 06/23/2021 12:45 INDICATION: Right internal ureteral stent placement TECHNIQUE: Fluoroscopic images from a right internal ureteral stent placement are submitted for omari de la fuente 80 seconds of fluoroscopy time. FINDINGS: There is a right double-J internal ureteral stent projecting in expected position, with proximal [place] loop at the level of the renal pelvis and distal loop in the pelvis within the bladder lumen. IMPRESSION: 1. Right internal ureteral stent placement. Please refer to real-time procedural findings for detai ls. Reviewed, dictated and finalized at location [facility]. IMPRESSION: 1. Right internal ureteral stent placement. Please refer to real-time procedu ral findings for details.
--- NOTE | ~2021-06-22 | XR_ITS ---
XR abdomen/kub 1V 06/23/2021 13:37 INDICATION: Renal stones. TECHNIQUE: KUB COMPARISON: None FINDINGS: Bowel gas pattern is normal. There is no evidence of free air, mass, organomegaly, ascites or obstruction. There are multiple bilateral renal stones. There is a right internal ureteral stent in expected position. There is residual contrast in right renal pelvis. The bones appear intact. Ther e is a right hip arthroplasty. IMPRESSION: 1: Bilateral nephrolithiasis. Right internal ureteral stent in expected position. Reviewed, dictated and finalized at location [facility]. IMPRESSION: 1: Bilateral nephrolithiasis. Right internal ureteral stent in expected positio n.
--- NOTE | ~2021-06-22 | XR_ITS ---
EXAMINATION: XR chest 1V portable DATE: 06/25/2021 12:11 INDICATION: Wheezing. COVID-19 positive 06/10/20. TECHNIQUE: A single frontal view of the chest was obtained. COMPARISON: Chest single view 06/22/2021, CT abdomen and pelvis 06/22/2021 FINDINGS: There are mild airspace opacities in the mid and lower lung zones. No pleural effusion or p neumothorax. The heart size is normal. There are changes of posterior fusion procedure in cervicothor acic spine. IMPRESSION: 1. Stable mild airspace opacities in the mid and lower lung zones, consistent with atelectasis/scarri ng versus pneumonia. Reviewed, dictated and finalized at location [facility]. IMPRESSION: 1. Stable mild airspace opacities in the mid and lower lung zones, consistent w ith atelectasis/scarring versus pneumonia.
--- NOTE | 2021-06-22 18:29 | ECG_ITS ---
Measurements Intervals [place] Rate: 113 P: 38 IN: 179 QRS: 263 QRSD: 147 T: 14 QT: 316 QTc: 434 Interpretive Statements SINUS TACHYCARDIA RIGHT AXIS DEVIATION RIGHT BUNDLE BRANCH BLOCK BASELINE WANDER- III, V4-V6 ABNORMAL ECG Electronically Signed On 06-24-2021 9:42:09 CDT by Mino Bell D.O.
--- NOTE | 2021-06-22 18:40 | ED.GENADULT ---
HPI - General Adult General Chief complaint: Unspecified Stated complaint: FEVER ON ANTIBIOTICS UTI Source: patient and RN notes reviewed History of Present Illness HPI narrative: Patient is 80 y/o male complaining of right back pain today. He rates his pain as 8/10 initially. His pain radiates to right lower abdomen. He took some Tylenol which helped with his pain. He also has fever up to 103 and vomiting. He has no dysuria. Related Data Home Medications Medication Instructions Recorded Confirmed potassium citrate 10 mEq (1,080 10 meq PO TID 10/01/19 06/09/21 mg) tablet,extended release multivitamin 1 cap PO DAILY 09/13/20 06/09/21 amitriptyline 10 mg PO HS 03/03/21 06/09/21 atorvastatin 80 mg PO HS 03/03/21 06/09/21 fluticasone propionate [Allergy 2 spray INTRANASAL PRN PRN 03/03/21 06/09/21 Relief (fluticasone)] meloxicam 15 mg PO PRN PRN 03/03/21 06/09/21 metformin 2,000 mg PO QPM 03/03/21 06/09/21 Tylenol 650 mg PO TID PRN 04/16/21 06/09/21 Allergies Allergy/AdvReac Type Severity Reaction Status Date / Time No Known Allergies Allergy Mild Verified 06/22/21 18:44 Review of Systems Constitutional: Constitutional: Denies chills, Reports fever(s), Denies headache(s) and Denies weakness Eyes: Eyes: Denies blurry vision ENT: Denies headache(s) and Denies neck pain Cardiovascular: Cardiovascular: Denies chest pain and Denies dyspnea Respiratory: Respiratory: Denies cough and Denies dyspnea Gastrointestinal: Gastrointestinal: Denies abdominal pain, Denies diarrhea, Reports nausea and Reports vomiting Genitourinary: Genitourinary: Denies hematuria and Denies dysuria Musculoskeletal: Musculoskeletal: Reports back pain and Denies neck pain Neurologic: Denies headache(s) and Denies weakness PMFSH Past Medical History Medical History Abnormal EKG Abnormal gait Acute right hip pain Acute urinary retention Acute UTI At high risk for falls BMI 25.0-25.9,adult 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 urinary tract symptoms PSA 0.4 on 06/08/2021 COVID-19 (06/10/20) Diabetes Diverticulosis DAVISON (dyspnea on exertion) High cholesterol Hypertension Lab test positive for detection of COVID-19 virus Microalbuminuria (06/08/21) microalbumin ratio of 61 on 06/08/2021 Neoplasm of skin of buttock (~06/02/21) 0.3 cm raised, erythematous papular lesion left upper buttocks in the midline Neoplasm of skin of cheek Seborrheic dermatitis Sepsis Skin cancer Urinary retention Vision changes Surgical History Surgical History History of cataract surgery History of fusion of cervical spine History of lumbar fusion S/P total hip arthroplasty Family History Family History Mother Patient's mother is , Onset Age: 89 Father Cerebrovascular accident, Onset Age: 73 Other Diabetes mellitus Heart disease Hypertension Social History Social History Smoking packs per day: 1 Smoking cigarettes per day: 20.0 Years smoked: 15 Smoking pack-years: 15.00 Additional smoking assessment comments: DENIES ANY FORM OF TOBACCO USE Alcohol intake: former Substance use: never Substance use type: does not use Gender identity (if verbalized by the patient): Male Spiritual care concerns: No Exam Const: General: no acute distress and well developed Orientation/consciousness: oriented to person, oriented to place, oriented to time and patient oriented x3 HENMT: Head: normocephalic Ears: external ears normal General nose exam: Normal external nose present Eyes: General: appearance normal, both eyes and all related structures Conjunctivae: conjunctivae normal Neck: Neck: normal visual inspection and full ROM Chest: Chest palpation & inspection: normal inspection of the ches
--- NOTE | 2021-06-22 18:50 | PC.NURSE ---
Pt taken to CT
[2021-06-22 19:01] LABS: Basophils Percent Auto 0.2 % (0.2-1.2); Eosinophils Percent Auto 0.1 % (0-4.4); Hematocrit 45.9 % (42.0-52.0); Hemoglobin 15.1 g/dL (14.0-18.0); Immature Granulocyte Absolute 0.03 K/mm3 (0.00-0.031); Immature Granulocyte Percent A 0.3 % (0-0.5); Lymphocytes Absolute Auto 0.36 K/mm3 (0.9-3.2); Lymphocytes Percent Auto 3.7 % (18.3-44.2); Mean Corpuscular HGB Conc 32.9 g/dl (32-36); Mean Corpuscular Hemoglobin 30.4 pg (26-34); Mean Corpuscular Volume 92.4 fl (80-100); Mean Platelet Volume 10.8 fl (7.4-10.4); Monocytes Absolute Auto 0.6 K/mm3 (0.1-0.6); Monocytes Percent Auto 6.5 % (2.6-8.5); Neutrophils Absolute Auto 8.7 K/mm3 (1.3-6.7); Neutrophils Percent Auto 89.2 % (45.5-73.1); Platelet Count Result 225 k/mm3 (150-375); Red Blood Count 4.97 M/mm3 (4.6-6.20); White Blood Count 9.8 K/mm3 (4.5-10.0)
--- NOTE | 2021-06-22 19:15 | PC.NURSE ---
Report given to KAPIL Salcido
[2021-06-22 19:19] LABS: Alanine Aminotransferase 15 U/L (4-50); Albumin Level 4.5 g/dL (3.5-5.1); Alkaline Phosphatase 118 U/L (38-126); Anion Gap 11 mmol/L (8-16); Aspartate Amino Transferase 26 U/L (17-59); Blood Urea Nitrogen 32 mg/dL (9-20); Calcium 9.3 mg/dL (8.4-10.2); Carbon Dioxide 22 mmol/L (22-30); Chloride 102 mmol/L (98-107); Estimated CRCL calculation 49 ml/min; Estimated Glomerular Filt Rate 49; Glucose 184 mg/dL (65-110); Potassium 4.2 mmol/L (3.4-5.0); Sodium 135 mmol/L (137-145)
--- NOTE | 2021-06-22 20:19 | PM.IMHP ---
H&P: HPI History of Present Illness Date/Time: 06/22/21 20:19 Chief Complaint: Chills Narrative: This is a 80-year-old male with past medical history significant for kidney stones, hypertension, dyslipidemia, type 2 diabetes mellitus diet and oral agents controlled. Patient presented today to the emergency room via EMS due to acute onset of nausea ,vomiting, chills. According to patient he has been in his usual but on his visit to see his director integrated on a urine sample he was noted to have some blood was prescribed antibiotics and sent home. He was doing fairly okay up until this episode. Patient denied any cough any sputum production any pain or burning with urination he also had acute onset of right-sided back pain which radiated around to the front side and down to the groin area. Preliminary workup was significant for CT of abdomen and pelvis with a stone at the ureteral pelvic junction with hydronephrosis on the right side, patient states that he noted his urine was cloudy and has not been drinking or eating well for the last day or so that is why he had trouble giving a sample of urine. He was also found to have infiltrates in the lungs. Review of Systems Review of Systems: Patient was brought via EMS to the emergency room due to chills nausea vomiting abdominal pain cloudy urine Constitutional: Constitutional: Reports chills and Reports fever(s) Eyes: Eyes: Denies change in vision ENT: Denies dysphagia, Denies nasal congestion, Denies nasal discharge, Denies nasal obstruction and Denies odynophagia Cardiovascular: Cardiovascular: Denies chest pain with activity, Denies irregular heart rhythm, Denies lightheadedness, Denies radiating jaw, neck or arm pain, Denies palpitations and Denies dyspnea on exertion Respiratory: Respiratory: Denies cough, Denies excessive phlegm production, Denies dyspnea and Denies wheezing Gastrointestinal: Gastrointestinal: Reports abdominal pain, Reports nausea and Reports vomiting Genitourinary: Genitourinary: Reports flank pain (Right-sided) Musculoskeletal: Musculoskeletal: Denies arthralgias Integumentary/Breasts: Skin/Breast: Reports system reviewed and no additional complaints, except as docu Neurologic: Reports system reviewed and no additional complaints, except as documented Psychiatric: Psychiatric: Reports no additional psychiatric complaints Endocrine: Endocrine: Reports no additional endocrine complaints Hematologic/Lymphatic: Hematologic/Lymphatic: Reports no additional hematologic/lymphatic complaints Allergic/Immunologic: Allergic/Immunologic: Reports no additional allergic/immunologic complaints PMFSH Past Medical History Medical History Abnormal EKG Abnormal gait Acute right hip pain Acute urinary retention Acute UTI At high risk for falls BMI 25.0-25.9,adult 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 urinary tract symptoms PSA 0.4 on 06/08/2021 COVID-19 (06/10/20) Diabetes Diverticulosis DAVISON (dyspnea on exertion) High cholesterol Hypertension Lab test positive for detection of COVID-19 virus Microalbuminuria (06/08/21) microalbumin ratio of 61 on 06/08/2021 Neoplasm of skin of buttock (~06/02/21) 0.3 cm raised, erythematous papular lesion left upper buttocks in the midline Neoplasm of skin of cheek Seborrheic dermatitis Sepsis Skin cancer Urinary retention Vision changes Surgical History Surgical History History of cataract surgery History of fusion of cervical spine History of lumbar fusion S/P total hip arthroplasty Family History Family History Mother Patient's mother is , Onset Age: 89 Father Cerebrovascular accident, Onset Age: 73 Other Diabetes mellitus Heart disease Hypertension Social History Social History
[2021-06-22 20:31] LABS: EDCOVIDSCREEN Negative (Negative)
[2021-06-22 20:35] LABS: Add Urine Microscopic? YES; Appearance Urine Cloudy (Clear); Bacteria Urine Trace /hpf; Bilirubin Urine Negative (Negative); Blood Urine 2+ (Negative); Color Urine Yellow (Yellow); Glucose Urine UA Negative (Negative); Ketones Urine Negative (Negative); Leukocyte Esterase Ur 3+ LEU/UL (Negative); Nitrate Urine Negative (Negative); Protein Urine 2+ mg/dL (Negative); RBC Urine 21-50 /hpf (0-2); Specific Grav Ur 1.012 (1.001-1.035); Urobilinogen Urine Negative mg/dL (<2.0); WBC Urine >75 /hpf
[2021-06-22 22:05] LABS: Lactic Acid Reflex 2.1 mmol/L (0.7-2.1)
--- NOTE | 2021-06-22 22:43 | ADMGEN ---
This patient, Saravanan Ralph, was admitted to [facility] Surg Room 320-01. Patient/family oriented to hospital policies and general routines including ID bracelet, bed and alarms, visiting hours, pain management, procedures, bathroom and other care routines, personal items, smoking policy, room service/diet, and visiting hours. Information on how to activate the Rapid Response Team has been discussed. Patient/Family are encouraged to report perceived risks to care and to ask questions if they do not understand what they are told or what they should do.
[2021-06-23] VITALS (24 sets, daily range): BP systolic 102–187; BP diastolic 54–97; PULSE 89–114; RESP 16–32; TEMP 36.2–38.2; O2SAT 85–100
[2021-06-23 00:55] LABS: Reflex Lactic Acid Yes or No Add Lactic
[2021-06-23] MEDS: ALBUTEROL SULFATE (*SP) AEROSOL 1 PUFF 2 PUFF INHALATION (01:23)
[2021-06-23 01:32] LABS: Lactic Acid 6.6 mmol/L (0.7-2.1)
[2021-06-23] MEDS: FUROSEMIDE INJ 40 MG/4 ML VIAL (01:36)
--- NOTE | 2021-06-23 01:42 | PC.NURSE ---
At approx 0100. pt developed auditory wheezing, cough and was tachypneic. He also c/o of moderate chills. O2 sats reading in mid 90s on 3L via [place]. Dr. Koroma notified. Received orders of albuterol inhaler. Pt did not have any relief of symptpoms. Dr. Koroma ordered one time dose of IV Lasix. Wheezing and tachypnea has now subsided. Temp at 100.5. PRN tylenol given. Dr. Koroma also notified of lactic acid of 6.6. Will ctm.
--- NOTE | 2021-06-23 07:03 | WPDURCON ---
Assessment and Plan Assessment and plan (1) Pyelonephritis: Code(s): N12 - Tubulo-interstitial nephritis, not specified as acute or chronic Status: Acute (2) Calculus of proximal right ureter: Code(s): N20.1 - Calculus of ureter Status: Acute Assessment and Plan: Cystoscopy, right ureteral stent placement today. Right ESWL 1-2 weeks [id number], following treatment of his urinary tract infection Urology Consult Note HPI Date Seen: 06/23/21 Requesting Physician: Zoe Koroma MD Primary Care Provider: Kings Díaz MD Consult Narrative Narrative: Saravanan Ralph is a 80 year old male known to our practice with a recent history of urinary tension secondary to BPH that was managed by Dr. Albrecht. his remote history of urolithiasis that have required intervention but none that I see that have been managed by our practice. He presents to the ER last night with subjective fever, nausea vomiting and chills. Evaluation in the ER demonstrated infected looking urine and an 11 mm right UPJ obstructing stone. Denies gross hematuria or significant flank pain. Review of Systems Cardiovascular: Cardiovascular: Denies chest pain, Denies lightheadedness, Denies palpitations and Denies dyspnea Respiratory: Respiratory: Denies dyspnea Gastrointestinal: Gastrointestinal: Denies diarrhea, Denies nausea and Denies vomiting Genitourinary: Genitourinary: Denies hematuria and Denies dysuria Endocrine: Endocrine: Denies palpitations PMFSH Past Medical History Medical History Abnormal EKG Abnormal gait Acute right hip pain Acute urinary retention Acute UTI At high risk for falls BMI 25.0-25.9,adult 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 urinary tract symptoms PSA 0.4 on 06/08/2021 COVID-19 (06/10/20) Diabetes Diverticulosis DAVISON (dyspnea on exertion) High cholesterol Hypertension Lab test positive for detection of COVID-19 virus Microalbuminuria (06/08/21) microalbumin ratio of 61 on 06/08/2021 Neoplasm of skin of buttock (~06/02/21) 0.3 cm raised, erythematous papular lesion left upper buttocks in the midline Neoplasm of skin of cheek Seborrheic dermatitis Sepsis Skin cancer Urinary retention Vision changes Surgical History Surgical History History of cataract surgery History of fusion of cervical spine History of lumbar fusion S/P total hip arthroplasty Family History Family History Mother Patient's mother is , Onset Age: 89 Father Cerebrovascular accident, Onset Age: 73 Other Diabetes mellitus Heart disease Hypertension Social History Social History Smoking packs per day: 1 Smoking cigarettes per day: 20.0 Years smoked: 15 Smoking pack-years: 15.00 Smoking status: Never smoker Second hand tobacco smoke exposure: No Additional smoking assessment comments: DENIES ANY FORM OF TOBACCO USE Alcohol intake: former Substance use: never Substance use type: does not use Gender identity (if verbalized by the patient): Male Spiritual care concerns: No Meds Home Medications and Allergies Home Medications Medication Instructions Recorded Confirmed Type potassium citrate 10 mEq (1,080 10 meq PO TID 10/01/19 06/22/21 History mg) tablet,extended release multivitamin 1 cap PO DAILY 09/13/20 06/22/21 History amitriptyline 10 mg PO HS 03/03/21 06/22/21 History atorvastatin 80 mg PO HS 03/03/21 06/22/21 History fluticasone propionate [Allergy 2 spray INTRANASAL PRN PRN 03/03/21 06/22/21 History Relief (fluticasone)] meloxicam 15 mg PO PRN PRN 03/03/21 06/22/21 History metformin 2,000 mg PO QPM 03/03/21 06/22/21 History docusate sodium 100 mg PO BID 30 Days #60 cap 03/17/21 06/22/21 Rx Tyleno
--- NOTE | 2021-06-23 07:18 | PM.IMPN ---
Progress Note: A&P Assessment and Plan (1) Pyelonephritis: Code(s): N12 - Tubulo-interstitial nephritis, not specified as acute or chronic Status: Acute Assessment and Plan: Patient had taken antibiotics in the outpatient setting prescribed by his senior staff specialized employment Continue ceftriaxone. Continue to follow cultures. Supportive care Lactic acid was found to be elevated. He is being resuscitated with IV fluids. I will trend lactic acid for documenting resolution. (2) Calculus of proximal right ureter: Code(s): N20.1 - Calculus of ureter Status: Acute Assessment and Plan: Pain management Urology consult recommendations appreciated. He was taken to the OR today on 06/23 and cystoscopy with a right sided ureteric stent placement. (3) 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 urinary tract symptoms: Code(s): N40.0 - Benign prostatic hyperplasia without lower urinary tract symptoms Status: Acute Assessment and Plan: Continue tamsulosin (4) Lung infiltrate on CT: Code(s): R91.8 - Other nonspecific abnormal finding of lung field Status: Acute Assessment and Plan: He does not have any respiratory symptoms. I will stop azithromycin. Chest x-ray findings are not very impressive. (5) Chronic midline low back pain without sciatica: Code(s): M54.5 - Low back pain; G89.29 - Other chronic pain Status: Acute Assessment and Plan: Tylenol as needed (6) Essential (primary) hypertension: Code(s): I10 - Essential (primary) hypertension Status: Acute Assessment and Plan: Continue to monitor Resume metoprolol. Hold enalapril and amlodipine for now and resume it later if blood pressure is elevated. (7) Mixed hyperlipidemia: Code(s): E78.2 - Mixed hyperlipidemia Status: Acute Assessment and Plan: Not on a statin Follow-up in outpatient setting (8) Peripheral polyneuropathy: Code(s): G62.9 - Polyneuropathy, unspecified Status: Acute Assessment and Plan: Continue amitriptyline Continue gabapentin (9) Type 2 diabetes mellitus without complication, without long-term current use of insulin: Code(s): E11.9 - Type 2 diabetes mellitus without complications Status: Acute Assessment and Plan: Will hold metformin Insulin sliding scale as needed (10) Degenerative joint disease (DJD) of hip: Qualifiers: Laterality: right Osteoarthritis type: primary Qualified Code(s): M16.11 - Unilateral primary osteoarthritis, right hip Code(s): M16.9 - Osteoarthritis of hip, unspecified Status: Acute Assessment and Plan: A status post hip arthroplasty Tylenol as needed Subjective Date/time seen: 06/23/21 07:18 He underwent cystoscopy and right ureter stent placement. His lactate was found to be elevated today and has been getting IV fluid resuscitation. He was on 3 L of oxygen at the time my evaluation. He was not in any distress. He denied have any significant symptoms of cough shortness of breath fever chills abdominal pain nausea and vomiting. Review of Systems Review of Systems: A comprehensive review of systems has been reviewed with the patient and most of the symptoms are negative except the one's mentioned above in HPI. Exam Narrative: General awake and alert not in acute distress HEENT no discharge Neck supple CVS S1-S2 no murmur Respiratory no wheezes or crepitation respiration nonlabored GI soft nontender nondistended no hepatosplenomegaly NIKE ATHLETE alert oriented x3 Psychiatric cooperative appropriate mood and affect Extremities no edema Objective Data Vital Signs Vital Signs: Vital Signs - 24 hr 06/22/21 18:22 06/22/21 18:44 06/22/21 18:45 Temperature 38.6 C H Pulse Rate 113 H 113 H 113 H Respiratory Rate 28 H 24 H Blood Pressure 154/79 H 150/82 H Pulse Oximetry 92 91 06/22/21 19:45 06/22/21 20:00 06/22/21
--- NOTE | 2021-06-23 07:22 | WPDHPUPDATE1 ---
History and Physical Update Update Date/Time: 06/23/21 07:22 History and Physical has been reviewed, including an updated exam of the patient. There are NO changes in the patient's condition. Risks, benefits, and alternatives have been discussed and questions answered. Patient agrees to proceed with procedure.
--- NOTE | 2021-06-23 11:00 | PC.NURSE ---
To OR per estevaner, IV on standby. Report given to RN.
--- NOTE | 2021-06-23 11:15 | WPDANESEPPF ---
Anes - Initial Pre Proc Eval Procedure: Operation Date: 06/23/21 12:00 Proposed Procedures p Cystoscopy,Right Stent Placement - Reggie Wright MD Date/Time: 06/23/21 11:15 Surgeon: Zoe Koroma MD Pre Op Diagnosis: Pyleonephritis, Kidney Stone Patient Data Age: 80 Gender: M Height: 1.96 m Weight: 87.9 kg Last Vital Signs Temp 36.9 C 06/23/21 04:00 Pulse 109 H 06/23/21 04:00 Resp 18 06/23/21 04:00 BP 116/61 06/23/21 04:00 Pulse Ox 98 06/23/21 07:45 Allergies Allergy/AdvReac Type Severity Reaction Status Date / Time No Known Allergies Allergy Mild Verified 06/22/21 18:44 Home Medications Medication Instructions Recorded Confirmed Type potassium citrate 10 mEq (1,080 10 meq PO TID 10/01/19 06/22/21 History mg) tablet,extended release multivitamin 1 cap PO DAILY 09/13/20 06/22/21 History amitriptyline 10 mg PO HS 03/03/21 06/22/21 History atorvastatin 80 mg PO HS 03/03/21 06/22/21 History fluticasone propionate [Allergy 2 spray INTRANASAL PRN PRN 03/03/21 06/22/21 History Relief (fluticasone)] meloxicam 15 mg PO PRN PRN 03/03/21 06/22/21 History metformin 2,000 mg PO QPM 03/03/21 06/22/21 History docusate sodium 100 mg PO BID 30 Days #60 cap 03/17/21 06/22/21 Rx Tylenol 650 mg PO TID PRN 04/16/21 06/22/21 History blood sugar diagnostic #100 ea 04/21/21 06/22/21 Rx blood-glucose meter #1 ea 04/21/21 06/22/21 Rx lancets 33 gauge #100 ea 04/21/21 06/22/21 Rx amlodipine 10 mg tablet 10 mg PO DAILY #90 tablet 05/13/21 06/22/21 Rx enalapril maleate 20 mg tablet 20 mg PO DAILY #90 tablet 05/23/21 06/22/21 Rx metoprolol succinate 100 mg 150 mg PO HS #135 tablet 05/23/21 06/22/21 Rx tablet,extended release 24 hr tamsulosin 0.4 mg capsule 0.4 mg PO HS #90 cap 06/14/21 06/22/21 Rx gabapentin 300 mg PO QID 06/22/21 06/22/21 History Laboratory Tests 06/22/21 06/22/21 06/22/21 18:49 18:49 20:03 WBC 9.8 K/mm3 K/mm3 (4.5-10.0) RBC 4.97 M/mm3 M/mm3 (4.6-6.20) Hgb 15.1 g/dL D g/dL (14.0-18.0) Hct 45.9 % % (42.0-52.0) MCV 92.4 fl fl (80-100) MCH 30.4 pg pg (26-34) MCHC 32.9 g/dl g/dl (32-36) RDW 14.0 % % (11.5-14.5) Plt Count 225 k/mm3 k/mm3 (150-375) MPV 10.8 fl H fl (7.4-10.4) Immature Gran % (Auto) 0.3 % % (0-0.5) Neut % (Auto) 89.2 % H % (45.5-73.1) Lymph % (Auto) 3.7 % L % (18.3-44.2) [place] % (Auto) 6.5 % % (2.6-8.5) Eos % (Auto) 0.1 % % (0-4.4) Baso % (Auto) 0.2 % % (0.2-1.2) Lymph # (Auto) 0.36 K/mm3 L K/mm3 (0.9-3.2) [place] # (Auto) 0.6 K/mm3 K/mm3 (0.1-0.6) Eos # (Auto) 0.0 K/mm3 K/mm3 (0-0.3) Baso # (Auto) 0.0 K/mm3 K/mm3 (0.0-0.1) Abs Immat Gran (auto) 0.03 K/mm3 K/mm3 (0.00-0.031) Absolute Neuts (auto) 8.7 K/mm3 H K/mm3 (1.3-6.7) Absolute Nucleated RBC 0.0 K/mm3 K/mm3 (0.0-0.012) Nucleated RBC % 0.0 % % (0.0-0.2) Sodium 135 mmol/L L mmol/L (137-145) Potassium 4.2 mmol/L mmol/L (3.4-5.0) Chloride 102 mmol/L mmol/L (98-107) Carbon Dioxide 22 mmol/L mmol/L (22-30) Anion Gap 11 mmol/L mmol/L (8-16) BUN 32 mg/dL H D mg/dL (9-20) Creatinine 1.40 mg/dL H mg/dL (0.7-1.3) Estim Creat Clear Calc 49 ml/min ml/min Estimated GFR 49 L (59 - ) Glucose 184 mg/dL H mg/dL (65-110) Lactic Acid Calcium 9.3 mg/dL mg/dL (8.4-10.2) Total Bilirubin 1.0 mg/dL mg/dL (0.2-1.3) AST 26 U/L U/L (17-59) ALT 15 U/L U/L (4-50) Alkaline Phosphatase 118 U/L U/L (38-126) Total Protein 8.0 g/dL g/dL (6.3-8.2) Albumin 4.5 g/dL g/dL (3.5-5.1) Urine Color Urine Appearance Urine pH
[2021-06-23 11:23] LABS: Glucose Point of Care 144 mg/dl (65-105)
[2021-06-23] MEDS: LACTATED RINGERS 1,000 ML 30 ML IV CONT ×2 (11:30→14:26)
[2021-06-23] MEDS: ceFAZolin 2 GM/D5W 50 ML 2 GM/50 ML BAG IVPB (12:04)
--- NOTE | 2021-06-23 13:00 | P.OP_ITS ---
Procedure Note - Detailed Date of Procedure 06/23/21 Pre-op Diagnosis Pyleonephritis, Right Kidney Stone Post-op Diagnosis same Procedure Performed Cystoscopy, right retrograde pyelography and right ureteral stent placement. Surgeon Reggie Wright MD Anesthesia general Description of Procedure The patient brought the office reveals preparation to Duff S1 dorsal lithotomy position after the uneventful induction general anesthetic. Cystoscopy is undertaken with a 19 F rigid cystoscope. His moderate lateral lobe hyperplasia with a small median lobe. There is no urethral stricture. Bladder mucosa was hyperemic due to what appears to be parent urine in an acute urinary tract infection. Angiographic catheter was used to obtain a right retrograde pyelogram and outline the right renal pelvis. A 0.035 in glidewire was advanced to the renal pelvis and 4.8 F variable length stent is position with the p roximal coil in the renal pelvis and distal coil in the bladder. Scopes and wires were removed. Patient was taken recovery good condition. Estimated Blood Loss 0 Urine Output 350 Drains Yes Packing No Pathology none sent Complications No immediate complications Condition stable Disposition PACU
[2021-06-23 13:12] LABS: Glucose Point of Care 136 mg/dl (65-105)
[2021-06-23] MEDS: ALBUTEROL SULFATE NEB 2.5 MG/0.5 ML INH INHALATION (13:53)
--- NOTE | 2021-06-23 14:55 | PC.NURSE ---
Returned from OR per stretcher. Report received from RN.
[2021-06-23] MEDS: SODIUM CHLORIDE 0.9% IV 1,000 ML 150 ML IV CONT ×2 (15:01→20:59)
[2021-06-23] MEDS: DOCUSATE SODIUM 100 MG CAPSULE PO (16:57)
[2021-06-23] MEDS: GABAPENTIN 300 MG CAPSULE PO ×2 (16:57→20:11)
[2021-06-23 18:15] LABS: Lactic Acid Reflex 3.4 mmol/L (0.7-2.1)
[2021-06-23] MEDS: METOPROLOL SUCCINATE EXT REL 50 MG TABCR 150 MG PO (20:10)
[2021-06-23] MEDS: AMITRIPTYLINE HCL 10 MG TABLET PO (20:10)
[2021-06-23] MEDS: ATORVASTATIN 40 MG TABLET 80 MG PO (20:10)
[2021-06-23 20:59] LABS: Reflex Lactic Acid Yes or No Add Lactic
[2021-06-23 21:21] LABS: Lactic Acid 2.2 mmol/L (0.7-2.1)
[2021-06-24] VITALS (7 sets, daily range): BP systolic 122–158; BP diastolic 68–80; PULSE 87–100; RESP 14–20; TEMP 36.7–37.8; O2SAT 92–96
[2021-06-24] MEDS: SODIUM CHLORIDE 0.9% IV 1,000 ML 150 ML IV CONT (03:41)
--- NOTE | 2021-06-24 06:41 | WPDUROPN2 ---
Progress Note: A&P Assessment and Plan (1) Calculus of proximal right ureter: Code(s): N20.1 - Calculus of ureter Status: Acute (2) Pyelonephritis: Code(s): N12 - Tubulo-interstitial nephritis, not specified as acute or chronic Status: Acute Assessment and Plan: Tolerating stent Gram neg. in urine / blood cx. pending Culture-directed antibiotics once cultures completed. Needs ESWL 2-3 weeks in future. Subjective Subjective Date/Time Seen: 06/24/21 06:41 Comfortable, tolerating stent Review of Systems Cardiovascular: Cardiovascular: Denies chest pain, Denies lightheadedness, Denies palpitations and Denies dyspnea Respiratory: Respiratory: Denies dyspnea Gastrointestinal: Gastrointestinal: Denies diarrhea, Denies nausea and Denies vomiting Genitourinary: Genitourinary: Denies hematuria and Denies dysuria Endocrine: Endocrine: Denies palpitations Exam Const: General: no acute distress Resp: Effort & Inspection: normal respiratory effort GI: Inspection: non-distended GI Palp: No abdominal tenderness and No Guarding due to palpation present (GI) Auscultation: normal bowel sounds Objective Data Vital Signs Vital Signs: Vital Signs - 24 hr 06/23/21 07:45 06/23/21 11:19 06/23/21 12:50 Temperature 98.9 F Pulse Rate 99 93 Respiratory Rate 18 18 Blood Pressure 126/58 L 116/64 Pulse Oximetry 98 94 98 06/23/21 13:05 06/23/21 13:20 06/23/21 13:35 Temperature Pulse Rate 91 109 H 106 H Respiratory Rate 20 26 H 23 H Blood Pressure 132/73 162/96 H 154/97 H Pulse Oximetry 100 99 95 06/23/21 13:45 06/23/21 13:50 06/23/21 13:58 Temperature Pulse Rate 108 H 105 H 109 H Respiratory Rate 20 27 H 26 H Blood Pressure 187/81 H Pulse Oximetry 95 06/23/21 14:05 06/23/21 14:20 06/23/21 14:35 Temperature 100.8 F H 100.6 F H Pulse Rate 114 H 112 H 109 H Respiratory Rate 27 H 27 H 20 Blood Pressure 128/75 141/78 H 127/80 Pulse Oximetry 93 93 93 06/23/21 14:46 06/23/21 14:55 06/23/21 15:10 Temperature 99.9 F H 99.9 F H Pulse Rate 107 H 106 H 107 H Respiratory Rate 25 H 18 18 Blood Pressure 121/62 133/58 L 124/62 Pulse Oximetry 93 92 94 06/23/21 15:55 06/23/21 17:11 06/23/21 20:00 Temperature 98.8 F 97.2 F L 97.8 F Pulse Rate 95 90 89 Respiratory Rate 16 16 20 Blood Pressure 114/59 L 117/57 L 102/54 L Pulse Oximetry 95 96 99 06/24/21 00:00 06/24/21 04:00 06/24/21 05:05 Temperature 98.8 F 100.0 F H 98.1 F Pulse Rate 87 92 Respiratory Rate 20 20 Blood Pressure 128/68 122/68 Pulse Oximetry 94 93 Intake/Output Intake/Output: Intake & Output 06/21/21 06/22/21 06/23/21 06/24/21 23:59 23:59 23:59 23:59 Intake Total 3150 2170 1250 Output Total 1100 750 Balance 3150 1070 500 Meds/Results Medications: Active Medications Generic Name Dose Route Start Last Admin Trade Name Freq PRN Reason Stop Dose Admin Albuterol 2 puff 06/23/21 01:38 Albuterol Sulfate (*Sp) Aerosol 1 Puff INHALATION Q4HR PRN Shortness Of Breath Amitriptyline HCl 10 mg 06/23/21 21:00 06/23/21 20:10 Amitriptyline Hcl 10 Mg Tablet PO 10 mg HS LEANN Administration Atorvastatin Calcium 80 mg 06/23/21 21:00 06/23/21 20:10 Atorvastatin 40 Mg Tablet PO 80 mg HS LEANN Administration Docusate Sodium 100 mg 06/23/21 17:00 06/23/21 16:57 Docusate Sodium 100 Mg Capsule PO 100 mg BID LEANN Administration Gabapentin 300 mg 06/23/21 17:00 06/23/21 20:11 Gabapentin 300 Mg Capsule PO 300 mg QID LEANN Administration Sodium Chloride 1,000 mls @ 150 mls/hr 06/23/21 11:35 06/24/21 03:41 Normal Saline Iv IV CONT 150 mls/hr .[id number] LEANN Administration Ceftriaxone Sodium/Dextrose 1 gm in 50 mls @ 100 mls/hr 06/23/21 21:00 06/23/21 20:41 Rocephin 1 Gm/D5w 50 Ml IVPB Infused HS LEANN Infusion Metoprolol Succinate 150 mg 06/23/21 21:00 06/23/21 20:10 Metoprolol Succinate Ext Rel 50 Mg Tabcr
--- NOTE | 2021-06-24 07:09 | WPDANESPN ---
Anes - Prog Note Post-Op Date/Time: 06/24/21 07:09 Cardiovascular status: normal Respiratory status: normal Airway patency: baseline Mental status: baseline Post-Op hydration status: normal Vital Signs: Last Vital Signs Temp 36.7 C 06/24/21 05:05 Pulse 92 06/24/21 04:00 Resp 20 06/24/21 04:00 BP 122/68 06/24/21 04:00 Pulse Ox 93 06/24/21 04:00 Pain Score (VAS): 0 I/O: Intake & Output 06/23/21 06/23/21 06/24/21 15:59 23:59 07:59 Intake Total 650 1420 1250 Output Total 350 400 750 Balance 300 1020 500 Laboratory Tests 06/22/21 18:49 06/22/21 18:49 06/23/21 06/23/21 06/23/21 11:21 13:10 17:48 POC Capillary Glucose 144 H 136 H Lactic Acid 3.4 H 06/23/21 21:06 POC Capillary Glucose Lactic Acid 2.2 H Microbiology 06/22/21 20:24 Unspecified Urine Culture - Preliminary Gram negative bacilli isolated 06/22/21 19:41 Blood Blood Culture - Preliminary 06/22/21 19:41 Blood Blood Culture - Preliminary Post-procedural complaints: none Patient Feedback: Patient satisfied with anesthetic care.
[2021-06-24 07:58] LABS: Hematocrit 40.1 % (42.0-52.0); Hemoglobin 12.6 g/dL (14.0-18.0); Mean Corpuscular HGB Conc 31.4 g/dl (32-36); Mean Corpuscular Volume 98.8 fl (80-100); Mean Platelet Volume 11.6 fl (7.4-10.4); Platelet Count Result 137 k/mm3 (150-375); Red Blood Count 4.06 M/mm3 (4.6-6.20); Red Cell Distribution Width 14.9 % (11.5-14.5); White Blood Count 10.6 K/mm3 (4.5-10.0)
[2021-06-24] MEDS: MULTIVITAMINS THERAPEUTIC TAB (*BKC) 1 TABLET PO (08:08)
[2021-06-24] MEDS: DOCUSATE SODIUM 100 MG CAPSULE PO ×2 (08:08→17:27)
[2021-06-24] MEDS: GABAPENTIN 300 MG CAPSULE PO ×4 (08:08→21:55)
[2021-06-24 08:11] LABS: Lactic Acid Reflex 1.1 mmol/L (0.7-2.1)
[2021-06-24 08:15] LABS: Anion Gap 9 mmol/L (8-16); Blood Urea Nitrogen 44 mg/dL (9-20); Calcium 8.1 mg/dL (8.4-10.2); Carbon Dioxide 24 mmol/L (22-30); Chloride 105 mmol/L (98-107); Estimated CRCL calculation 40 ml/min; Estimated Glomerular Filt Rate 39; Glucose 111 mg/dL (65-110); Magnesium 1.1 mg/dL (1.6-2.3); Potassium 3.6 mmol/L (3.4-5.0); Sodium 138 mmol/L (137-145)
[2021-06-24 10:38] LABS: Band Neutrophils Percent 14 % (0-6); Eosinophils Absolute Manual 0.21 K/mm3 (0.02-0.5); Eosinophils Percent Manual 2 % (0-4); Lymphocytes Absolute Manual 0.53 K/mm3 (1.1-4.5); Metamyelocytes Percent 1 %; Monocytes Absolute Manual 0.31 K/mm3 (0.1-0.90); Monocytes Percent Manual 3 % (3-9); Neutrophils Absolute Manual 9.43 K/mm3 (1.3-6.7); Neutrophils Percent Manual 75 % (46-73); Platelet Estimate Adequate (Adequate); Total Cells Counted 100
[2021-06-24] MEDS: MAGNESIUM SULF 2 GM/WATER 50ML 2 GM/50 ML BAG IVPB (12:03)
[2021-06-24] MEDS: SODIUM CHLORIDE 0.9% IV 1,000 ML 100 ML IV CONT (12:55)
--- NOTE | 2021-06-24 13:07 | PM.IMPN ---
Progress Note: A&P Assessment and Plan (1) Pyelonephritis: Code(s): N12 - Tubulo-interstitial nephritis, not specified as acute or chronic Status: Acute Assessment and Plan: Patient had taken antibiotics in the outpatient setting prescribed by his briar cutter I will switch ceftriaxone to cefepime considering his culture growth blood of Pseudomonas aeruginosa. Continue to follow cultures. Urine cultures growing Gram-negative bacilli likely Pseudomonas aeruginosa as well. Follow sensitivity and taper antibiotics accordingly. Repeat blood culture will be sent today to document resolution of bacteremia. If he remained persistent bacteremic then he will need to have transthoracic echocardiogram to rule out vegetation. Supportive care Lactic acid was found to be elevated yesterday which was 6.6 but it trended down to 1.1 today with IV fluid resuscitation. Stop for of IV fluids. (2) Calculus of proximal right ureter: Code(s): N20.1 - Calculus of ureter Status: Acute Assessment and Plan: Pain management Urology consult recommendations appreciated. He was taken to the OR on 06/23 and cystoscopy with a right sided ureteric stent placement. He will need ESWL in 2-3 weeks time as per urology service. (3) 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 urinary tract symptoms: Code(s): N40.0 - Benign prostatic hyperplasia without lower urinary tract symptoms Status: Acute Assessment and Plan: Continue tamsulosin (4) Lung infiltrate on CT: Code(s): R91.8 - Other nonspecific abnormal finding of lung field Status: Acute Assessment and Plan: He does not have any respiratory symptoms. I will stop azithromycin. Will transition ceftriaxone to cefepime. Chest x-ray findings are not very impressive. (5) Chronic midline low back pain without sciatica: Code(s): M54.5 - Low back pain; G89.29 - Other chronic pain Status: Acute Assessment and Plan: Tylenol as needed (6) Essential (primary) hypertension: Code(s): I10 - Essential (primary) hypertension Status: Acute Assessment and Plan: Continue to monitor Resume metoprolol. Hold enalapril and amlodipine for now and resume it later if blood pressure is elevated. (7) Mixed hyperlipidemia: Code(s): E78.2 - Mixed hyperlipidemia Status: Acute Assessment and Plan: Continue Lipitor. Follow-up in outpatient setting (8) Peripheral polyneuropathy: Code(s): G62.9 - Polyneuropathy, unspecified Status: Acute Assessment and Plan: Continue amitriptyline Continue gabapentin (9) Type 2 diabetes mellitus without complication, without long-term current use of insulin: Code(s): E11.9 - Type 2 diabetes mellitus without complications Status: Acute Assessment and Plan: Will hold metformin Insulin sliding scale as needed (10) Degenerative joint disease (DJD) of hip: Qualifiers: Osteoarthritis type: primary Laterality: right Qualified Code(s): M16.11 - Unilateral primary osteoarthritis, right hip Code(s): M16.9 - Osteoarthritis of hip, unspecified Status: Acute Assessment and Plan: A status post hip arthroplasty Tylenol as needed (11) Hypoxia: Code(s): R09.02 - Hypoxemia Status: Acute Assessment and Plan: He is on 2 L of oxygen. Wean oxygen if tolerated. Keep oxygen saturation above 90%. (12) YOVANI (acute kidney injury): Code(s): N17.9 - Acute kidney failure, unspecified Status: Acute Assessment and Plan: Creatinine trended of which is 1.7 today. He is adequately hydrated with IV fluids. Continue to monitor renal parameters and electrolytes. Strict intake output record and daily weight. Subjective Date/time seen: 06/24/21 13:07 He is doing well. He denied have any significant symptoms of chest pain shortness of breath cough flank pain abdominal pain nausea and vomi
[2021-06-24 19:23] LABS: Glucose Point of Care 166 mg/dl (65-105)
[2021-06-24] MEDS: AMITRIPTYLINE HCL 10 MG TABLET PO (21:55)
[2021-06-24] MEDS: ATORVASTATIN 40 MG TABLET 80 MG PO (21:55)
[2021-06-24] MEDS: TAMSULOSIN HCL 0.4 MG CAPSULE PO (21:55)
[2021-06-24] MEDS: METOPROLOL SUCCINATE EXT REL 50 MG TABCR 150 MG PO (21:55)
[2021-06-24 23:07] LABS: Glucose Point of Care 166 mg/dl (65-105)
[2021-06-25] VITALS (11 sets, daily range): BP systolic 143–159; BP diastolic 71–86; PULSE 82–107; RESP 12–20; TEMP 36.5–36.7; O2SAT 90–96
[2021-06-25 07:25] LABS: Basophils Percent Auto 0.2 % (0.2-1.2); Eosinophils Absolute Auto 0.2 K/mm3 (0-0.3); Eosinophils Percent Auto 2.5 % (0-4.4); Hematocrit 39.9 % (42.0-52.0); Hemoglobin 12.6 g/dL (14.0-18.0); Immature Granulocyte Absolute 0.05 K/mm3 (0.00-0.031); Immature Granulocyte Percent A 0.6 % (0-0.5); Lymphocytes Absolute Auto 0.86 K/mm3 (0.9-3.2); Lymphocytes Percent Auto 10.7 % (18.3-44.2); Mean Corpuscular HGB Conc 31.6 g/dl (32-36); Mean Corpuscular Hemoglobin 30.1 pg (26-34); Mean Corpuscular Volume 95.2 fl (80-100); Mean Platelet Volume 11.2 fl (7.4-10.4); Monocytes Percent Auto 11.9 % (2.6-8.5); Neutrophils Percent Auto 74.1 % (45.5-73.1); Platelet Count Result 133 k/mm3 (150-375); Red Blood Count 4.19 M/mm3 (4.6-6.20); White Blood Count 8.1 K/mm3 (4.5-10.0)
[2021-06-25 07:37] LABS: Hemoglobin A1C 6.8 % (<5.7)
[2021-06-25 07:40] LABS: Anion Gap 7 mmol/L (8-16); Blood Urea Nitrogen 32 mg/dL (9-20); Carbon Dioxide 26 mmol/L (22-30); Chloride 106 mmol/L (98-107); Estimated CRCL calculation 61 ml/min; Estimated Glomerular Filt Rate > 60; Glucose 125 mg/dL (65-110); Magnesium 1.5 mg/dL (1.6-2.3); Potassium 3.5 mmol/L (3.4-5.0); Sodium 139 mmol/L (137-145)
[2021-06-25 08:16] LABS: Glucose Point of Care 126 mg/dl (65-105)
[2021-06-25] MEDS: GABAPENTIN 300 MG CAPSULE PO ×4 (09:59→20:19)
[2021-06-25] MEDS: MULTIVITAMINS THERAPEUTIC TAB (*BKC) 1 TABLET PO (09:59)
[2021-06-25] MEDS: DOCUSATE SODIUM 100 MG CAPSULE PO ×2 (09:59→18:06)
--- NOTE | 2021-06-25 11:30 | WPDUROPN2 ---
Progress Note: A&P Assessment and Plan (1) Calculus of proximal right ureter: Code(s): N20.1 - Calculus of ureter Status: Acute (2) Bacteremia due to Pseudomonas: Code(s): R78.81 - Bacteremia; B96.5 - Pseudomonas (aeruginosa) (mallei) (pseudomallei) as the cause of diseases classified elsewhere Status: Acute Assessment and Plan: Cultures noted (pseudomonas in blood/urine). Discussed with Dr. Arellano - agree with plans for possible discharge on oral quinolone tomorrow. I'll see in f/u 7-10 days to arrange definitive stone management. Subjective Subjective Date/Time Seen: 06/25/21 11:30 Comfortable Review of Systems Cardiovascular: Cardiovascular: Denies chest pain, Denies lightheadedness, Denies palpitations and Denies dyspnea Respiratory: Respiratory: Denies dyspnea Gastrointestinal: Gastrointestinal: Denies diarrhea, Denies nausea and Denies vomiting Genitourinary: Genitourinary: Denies hematuria and Denies dysuria Endocrine: Endocrine: Denies palpitations Exam Const: General: no acute distress Resp: Effort & Inspection: normal respiratory effort GI: Inspection: non-distended GI Palp: No abdominal tenderness and No Guarding due to palpation present (GI) Auscultation: normal bowel sounds Objective Data Vital Signs Vital Signs: Vital Signs - 24 hr 06/24/21 15:01 06/24/21 21:53 06/24/21 21:55 Temperature 98.9 F 98.7 F Pulse Rate 94 100 100 Respiratory Rate 14 18 Blood Pressure 138/69 158/80 H Pulse Oximetry 96 92 06/25/21 05:53 06/25/21 09:30 Temperature 97.7 F Pulse Rate 82 Respiratory Rate 17 Blood Pressure 143/86 H Pulse Oximetry 91 91 Intake/Output Intake/Output: Intake & Output 06/22/21 06/23/21 06/24/21 06/25/21 23:59 23:59 23:59 23:59 Intake Total 3150 2170 3140 370 Output Total 1100 2050 1200 Balance 3150 1070 1090 -830 Meds/Results Medications: Active Medications Generic Name Dose Route Start Last Admin Trade Name Freq PRN Reason Stop Dose Admin Albuterol 2 puff 06/23/21 01:38 Albuterol Sulfate (*Sp) Aerosol 1 Puff INHALATION Q4HR PRN Shortness Of Breath Amitriptyline HCl 10 mg 06/23/21 21:00 06/24/21 21:55 Amitriptyline Hcl 10 Mg Tablet PO 10 mg HS LEANN Administration Atorvastatin Calcium 80 mg 06/23/21 21:00 06/24/21 21:55 Atorvastatin 40 Mg Tablet PO 80 mg HS LEANN Administration Dextrose 12.5 gm 06/24/21 13:06 Dextrose 50% 25 Gm/50 Ml Syringe IV PUSH PRN PRN Hypoglycemia Protocol Docusate Sodium 100 mg 06/23/21 17:00 06/25/21 09:59 Docusate Sodium 100 Mg Capsule PO 100 mg BID LEANN Administration Gabapentin 300 mg 06/23/21 17:00 06/25/21 09:59 Gabapentin 300 Mg Capsule PO 300 mg QID LEANN Administration Glucagon 1 mg 06/24/21 13:06 Glucagon For Inj 1 Mg Vial IM PRN PRN Hypoglycemia Protocol Glucose 15 gm 06/24/21 13:06 Glucose Oral Gel 15 Gm Of Glucse In 37.5 Gm Tube PO PRN PRN Hypoglycemia Protocol Cefepime HCl 2 gm in 50 mls @ 100 mls/hr 06/24/21 21:00 06/25/21 09:58 Maxipime 2 Gm/D5w 50 Ml IVPB 100 mls/hr Q12HR LEANN Administration Dextrose 1,000 mls @ 100 mls/hr 06/24/21 13:06 Dextrose 5% 1,000 Ml IVPB PRN PRN Hypoglycemia Protocol Magnesium Sulfate/Dextrose 3 gm in 100 mls @ 100 mls/hr 06/25/21 10:38 Magnesium Sulfate 3gm/[id number] IVPB 06/25/21 11:37 ONCE ONE Insulin Aspart 3 - 6 units 06/24/21 12:00 06/24/21 19:49 Insulin Aspart (*Bkc) 100 Units/Ml SUB-Q Not Given TIDWM LEANN Protocol Metoprolol Succinate 150 mg 06/23/21 21:00 06/24/21 21:55 Metoprolol Succinate Ext Rel 50 Mg Tabcr PO 150 mg HS LEANN Administration Multivitamins Therapeutic 1 tablet 06/24/21 09:00 06/25/21 09:59 Multivitamins Therapeutic Tab (*Bkc) PO 1 tablet DAILY LEANN Administration Tamsulosin HCl 0.4 mg 06/24/21 21:00 06/24/21 21:55
[2021-06-25 12:39] LABS: Glucose Point of Care 99 mg/dl (65-105)
--- NOTE | 2021-06-25 15:00 | PM.IMPN ---
Progress Note: A&P Assessment and Plan (1) Pyelonephritis: Code(s): N12 - Tubulo-interstitial nephritis, not specified as acute or chronic Status: Acute Assessment and Plan: Patient had taken antibiotics in the outpatient setting prescribed by his retail field representative He was initially on ceftriaxone which was switched to to cefepime considering his culture growth blood of Pseudomonas aeruginosa. Pseudomonas aeruginosa in the blood is pansensitive. It is sensitive to cefepime. It is sensitive to ciprofloxacin as well. He will need antibiotic for 7-10 days considering instrumentation in the urinary trach and complicated infection. Urine culture grew same Pseudomonas aeruginosa with same sensitivity pattern. Repeat blood culture sent yesterday has been negative for bacteremia yet. Continue to follow it. If he remained persistent bacteremic then he will need to have transthoracic echocardiogram to rule out vegetation. Supportive care Lactic acid was found to be elevated 06/23 which was 6.6 but it trended down to 1.1 today with IV fluid resuscitation. IV fluid have been stopped. (2) Calculus of proximal right ureter: Code(s): N20.1 - Calculus of ureter Status: Acute Assessment and Plan: Pain management Urology consult recommendations appreciated. He was taken to the OR on 06/23 and cystoscopy with a right sided ureteric stent placement. He will need ESWL in 2-3 weeks time as per urology service. (3) 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 urinary tract symptoms: Code(s): N40.0 - Benign prostatic hyperplasia without lower urinary tract symptoms Status: Acute Assessment and Plan: Continue tamsulosin (4) Lung infiltrate on CT: Code(s): R91.8 - Other nonspecific abnormal finding of lung field Status: Acute Assessment and Plan: He does not have any respiratory symptoms. Azithromycin was stopped. Will transition ceftriaxone to cefepime. Chest x-ray findings are not very impressive. (5) Chronic midline low back pain without sciatica: Code(s): M54.5 - Low back pain; G89.29 - Other chronic pain Status: Acute Assessment and Plan: Tylenol as needed (6) Essential (primary) hypertension: Code(s): I10 - Essential (primary) hypertension Status: Acute Assessment and Plan: Continue to monitor Resume metoprolol. Hold enalapril and amlodipine for now and resume it later if blood pressure is elevated. (7) Mixed hyperlipidemia: Code(s): E78.2 - Mixed hyperlipidemia Status: Acute Assessment and Plan: Continue Lipitor. Follow-up in outpatient setting (8) Peripheral polyneuropathy: Code(s): G62.9 - Polyneuropathy, unspecified Status: Acute Assessment and Plan: Continue amitriptyline Continue gabapentin (9) Type 2 diabetes mellitus without complication, without long-term current use of insulin: Code(s): E11.9 - Type 2 diabetes mellitus without complications Status: Acute Assessment and Plan: Will hold metformin Insulin sliding scale as needed (10) Degenerative joint disease (DJD) of hip: Qualifiers: Osteoarthritis type: primary Laterality: right Qualified Code(s): M16.11 - Unilateral primary osteoarthritis, right hip Code(s): M16.9 - Osteoarthritis of hip, unspecified Status: Acute Assessment and Plan: Status post hip arthroplasty Tylenol as needed (11) Hypoxia: Code(s): R09.02 - Hypoxemia Status: Acute Assessment and Plan: He was on room air at the time of my evaluation. Oxygen inhalation if oxygen saturation less than 90%. He did have some crackle on clinical exam. I will give him 1 dose of 20 mg of Lasix IV today. He had bilateral wheezing as well. I will start him on standing bronchodilation with albuterol and Atrovent nebs. I will hold of steroids at this time considering his active bacterial infection. If h
[2021-06-25] MEDS: MAGNESIUM SULFATE 3GM/D5W100ML 3 GM/100 ML BAG IVPB (15:01)
[2021-06-25] MEDS: IPRATROPIUM BR 0.02% INH SOLN 0.5 MG/2.5 ML VIAL INHALATION ×2 (15:03→20:45)
[2021-06-25] MEDS: FUROSEMIDE INJ 40 MG/4 ML VIAL 20 MG IV PUSH (15:03)
[2021-06-25] MEDS: ALBUTEROL SULFATE NEB 2.5 MG/0.5 ML INH INHALATION ×2 (15:03→20:45)
[2021-06-25 18:17] LABS: Glucose Point of Care 175 mg/dl (65-105)
[2021-06-25] MEDS: AMITRIPTYLINE HCL 10 MG TABLET PO (20:18)
[2021-06-25] MEDS: METOPROLOL SUCCINATE EXT REL 50 MG TABCR 150 MG PO (20:18)
[2021-06-25] MEDS: ATORVASTATIN 40 MG TABLET 80 MG PO (20:19)
[2021-06-25] MEDS: TAMSULOSIN HCL 0.4 MG CAPSULE PO (20:19)
[2021-06-25] MEDS: guaiFENesin 12 HR 600 MG TABCR PO (20:19)
[2021-06-25 21:51] LABS: Glucose Point of Care 198 mg/dl (65-105)
[2021-06-26] VITALS (7 sets, daily range): BP systolic 174; BP diastolic 92; PULSE 72–95; RESP 18–24; TEMP 36.4; O2SAT 92–97
[2021-06-26] MEDS: IPRATROPIUM BR 0.02% INH SOLN 0.5 MG/2.5 ML VIAL INHALATION ×2 (02:41→09:24)
[2021-06-26] MEDS: ALBUTEROL SULFATE NEB 2.5 MG/0.5 ML INH INHALATION ×2 (02:41→09:23)
[2021-06-26 06:55] LABS: Glucose Point of Care 123 mg/dl (65-105)
[2021-06-26 07:08] LABS: Magnesium 1.7 mg/dL (1.6-2.3)
[2021-06-26] MEDS: MULTIVITAMINS THERAPEUTIC TAB (*BKC) 1 TABLET PO (08:24)
[2021-06-26] MEDS: guaiFENesin 12 HR 600 MG TABCR PO (08:30)
[2021-06-26] MEDS: DOCUSATE SODIUM 100 MG CAPSULE PO (08:30)
[2021-06-26] MEDS: GABAPENTIN 300 MG CAPSULE PO (08:30)
--- NOTE | 2021-06-26 12:17 | PM.DS ---
DS: Admitting Diagnosis Admitting Diagnosis Urine tract infection with probable pyelonephritis BPH Nephrolithiasis with proximal right ureteric stone Chronic low back pain Hypertension Hyperlipidemia Peripheral neuropathy Diabetes mellitus Osteoarthritis DS: Discharge Diagnosis Discharge Diagnosis (1) Pyelonephritis: Code(s): N12 - Tubulo-interstitial nephritis, not specified as acute or chronic Status: Acute Assessment and Plan: Patient had taken antibiotics in the outpatient setting prescribed by his telecom manager He was initially on ceftriaxone which was switched to to cefepime considering his culture growth blood of Pseudomonas aeruginosa. Pseudomonas aeruginosa in the blood is pansensitive. It is sensitive to cefepime. It is sensitive to ciprofloxacin as well. He will need antibiotic for 10 days considering instrumentation in the urinary tract and complicated infection. Urine culture grew same Pseudomonas aeruginosa with same sensitivity pattern. Repeat blood culture sent from 06/24 has been negative so far. Continue to follow it. Lactic acid was found to be elevated 06/23 which was 6.6 but it trended down to 1.1 today with IV fluid resuscitation. IV fluid have been stopped. (2) Calculus of proximal right ureter: Code(s): N20.1 - Calculus of ureter Status: Acute Assessment and Plan: Pain management Urology consult recommendations appreciated. He was taken to the OR on 06/23 and cystoscopy with a right sided ureteric stent placement. He will need ESWL in 2-3 weeks time as per urology service. He has a follow-up appointment with his urologist on Thursday 06/28 at 11:00 a.m.. (3) 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 urinary tract symptoms: Code(s): N40.0 - Benign prostatic hyperplasia without lower urinary tract symptoms Status: Acute Assessment and Plan: Continue tamsulosin (4) Lung infiltrate on CT: Code(s): R91.8 - Other nonspecific abnormal finding of lung field Status: Acute Assessment and Plan: He does not have any respiratory symptoms. Azithromycin was stopped. Will transition ceftriaxone to cefepime. Chest x-ray findings are not very impressive. (5) Chronic midline low back pain without sciatica: Code(s): M54.5 - Low back pain; G89.29 - Other chronic pain Status: Acute Assessment and Plan: Tylenol as needed (6) Essential (primary) hypertension: Code(s): I10 - Essential (primary) hypertension Status: Acute Assessment and Plan: Continue to monitor Initially he was hypotensive and his blood pressure medication was put on hold. Metoprolol was resumed. Today blood pressure was elevated. He was given amlodipine before discharge. He will resume his enalapril after discharge as well. (7) Mixed hyperlipidemia: Code(s): E78.2 - Mixed hyperlipidemia Status: Acute Assessment and Plan: Continue Lipitor. Follow-up in outpatient setting (8) Peripheral polyneuropathy: Code(s): G62.9 - Polyneuropathy, unspecified Status: Acute Assessment and Plan: Continue amitriptyline Continue gabapentin (9) Type 2 diabetes mellitus without complication, without long-term current use of insulin: Code(s): E11.9 - Type 2 diabetes mellitus without complications Status: Acute Assessment and Plan: Metformin was on hold while he was here in the hospital. It is resumed at the time of discharge. 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
[2021-06-26 12:26] LABS: Glucose Point of Care 150 mg/dl (65-105)
== END 2021-06-26 13:25 | disposition home or self-care (01) | DRG 660 ==
LOC: ANHED 21:04 → ANH3MEDSUR 06-23 06:41
PROVIDERS: Urology; Admitting Provider Internal Medicine; Emergency Provider Emergency Medicine; PCP Family Medicine; Visit Provider Internal Medicine Critical Care Medicine
PROC: 0T768DZ Dilation of Right Ureter with Intraluminal Device, Via Natural or Artificial Opening Endoscopic (ICD-10-PCS; CPT 52352; principal; 2021-06-23 12:00)
DX: N20.1 Calculus of ureter (principal); N10 Acute pyelonephritis; N17.9 Acute kidney failure, unspecified; B96.5 Pseudomonas (aeruginosa) (mallei) (pseudomallei) as the cause of diseases classified elsewhere; Z20.822 Contact with and (suspected) exposure to COVID-19; R09.02 Hypoxemia; I10 Essential (primary) hypertension; E78.5 Hyperlipidemia, unspecified; E11.42 Type 2 diabetes mellitus with diabetic polyneuropathy; R91.8 Other nonspecific abnormal finding of lung field; M54.5 Low back pain; G89.29 Other chronic pain; E78.2 Mixed hyperlipidemia; N40.1 Benign prostatic hyperplasia with lower urinary tract symptoms; R33.9 Retention of urine, unspecified; M16.11 Unilateral primary osteoarthritis, right hip; Z96.641 Presence of right artificial hip joint; Z86.16 Personal history of COVID-19; Z85.828 Personal history of other malignant neoplasm of skin; Z98.1 Arthrodesis status; Z87.891 Personal history of nicotine dependence
CPT/HCPCS: 36415; 71045; 74018; 74176; 74420; 80048; 80053; 81001; 82948; 83036; 83605; 83735; 85025; 85055; 87040; 87077; 87086; 87088; 87186; 87426; 93005; 94640; 96365; 99285; A9270; C1758; C1769; C1887; C2617; C9803; G0378; J0131; J0456; J0690; J0692; J0696; J1940; J2370; J2405; J2704; J3010; J3475; J7030; J7120; Q9966

== ENCOUNTER 2021-06-29 11:14 | Outpatient (CLI) | payer MEDICARE, SELFPAY ==
--- NOTE | ~2021-06-29 | XR_ITS ---
EXAMINATION: XR abdomen/kub 1V EXAM DATE: 06/29/2021 11:31 INDICATION: Kidney stone follow-up. Scheduled lithotripsy. TECHNIQUE: Frontal projection of the upper abdomen, frontal projection lower abdomen/pelvis for inter pretation. Comparison is made to prior examination from 06/23/2021. FINDINGS: There is a right-sided double-J ureteral stent in position. There are dense bilateral kidne y stones, larger stone burden on the left. Nonobstructive bowel gas pattern. Calcifications in the pe lvis are believed to be phleboliths. Lower lumbar fusion, laminectomies. Right hip replacement. IMPRESSION: 1. Large, dense bilateral nephrolithiasis. 2. Right ureteral stent in position. Reviewed, dictated and finalized at location A.
== END 2021-06-29 11:15 | disposition home or self-care (01) ==
LOC: ANHIMG 11:15
PROVIDERS: PCP Family Medicine; Visit Provider Nurse Practitioner Adult Health
DX: N20.0 Calculus of kidney (principal)
CPT/HCPCS: 74018

== ENCOUNTER 2021-07-07 08:57 | Outpatient (CLI) | payer MEDICARE, SELFPAY ==
[2021-07-07 10:05] LABS: INR 0.8; Prothrombin Time 11.3 Seconds (11.1-14.7)
[2021-07-07 10:06] LABS: Partial Thromboplastin Time 34.3 SECONDS (22.3-36.8)
== END 2021-07-07 08:58 | disposition home or self-care (01) ==
LOC: ANHSURGERY 09:03
PROVIDERS: PCP Family Medicine; Visit Provider Urology
DX: Z01.818 Encounter for other preprocedural examination (principal); N20.0 Calculus of kidney
CPT/HCPCS: 36415; 85610; 85730; 87077; 87086; 87088

== ENCOUNTER 2021-07-14 08:34 | Emergency (ER) | payer MEDICARE, SELFPAY ==
[2021-07-14] VITALS (15 sets, daily range): BP systolic 115–145; BP diastolic 68–85; PULSE 89–115; RESP 18–20; TEMP 37.3; O2SAT 93–100
--- NOTE | ~2021-07-14 | CT_ITS ---
EXAMINATION: CT abdomen pelvis wo con DATE: 07/14/2021 10:26 INDICATION: Urinary obstruction with fever. TECHNIQUE: Computed tomography (CT) of the abdomen and pelvis was performed without intravenous contr ast. Automated exposure control and iterative reconstruction technique were employed. The dose-length product was 330.14 mGy-cm. COMPARISON: CT abdomen and pelvis 06/22/2021, CT abdomen 05/03/2007 FINDINGS: The visualized portions of the lung bases demonstrate mild atelectasis and scarring. No ple ural effusion. The heart size is normal. There are coronary artery calcifications. No pericardial eff usion. There is a 13 mm cyst in the liver. The gallbladder is distended and contains gallstones. The spleen, pancreas, and left adrenal gland are normal. There is a 2.2 cm mass in right adrenal gland me asuring soft tissue attenuation that measured 1.5 cm on 05/03/2007, consistent with an adenoma. There are approximately 9 stones in right kidney measuring up to 10 mm. There is moderate right hydronephro sis and hydroureter. There is a right internal ureteral stent in expected position. There are approxi mately 7 stones in left kidney measuring up to 16 mm. The prostate is mildly enlarged. There is an an astomosis in the sigmoid colon. There is diverticulosis of the colon without evidence of diverticulit is. There are no dilated loops of bowel. The appendix is not visualized. There are no pathologically enlarged lymph nodes. There is no free intraperitoneal fluid. There is a total right hip arthroplasty . There are changes of posterior fusion procedure from L3 to L5. There is severe lumbar spondylosis a nd mild thoracic spondylosis. IMPRESSION: 1. Bilateral nonobstructing kidney stones. 2. Moderate right hydronephrosis and hydroureter with improvement status post internal ureteral stent placement. 3. Cholelithiasis. New gallbladder distention may be secondary to fasting. Reviewed, dictated and finalized at location A. IMPRESSION: 1. Bilateral nonobstructing kidney stones. 2. Moderate right hydronephrosis and hydroureter with improvement status post i nternal ureteral stent placement. 3. Cholelithiasis. New gallbladder distention may be secondary to fasting.
[2021-07-14 09:34] LABS: Hematocrit 43.9 % (42.0-52.0); Hemoglobin 14.3 g/dL (14.0-18.0); Mean Corpuscular HGB Conc 32.6 g/dl (32-36); Mean Corpuscular Volume 92.2 fl (80-100); Mean Platelet Volume 11.7 fl (7.4-10.4); Platelet Count Result 209 k/mm3 (150-375); Red Blood Count 4.76 M/mm3 (4.6-6.20); Red Cell Distribution Width 15.2 % (11.5-14.5); White Blood Count 14.7 K/mm3 (4.5-10.0)
--- NOTE | 2021-07-14 09:37 | ED.GENADULT ---
HPI - General Adult General Chief complaint: Weakness Stated complaint: Difficulty urinating,fever,Scheduled for lithotrip Time Seen by Provider: 07/14/21 09:02 Source: patient and family () Mode of arrival: ambulatory Limitations: no limitations History of Present Illness HPI narrative: Patient with history of kidney stones and diabetes presents with chief complaint fever, fatigue, and urinary retention that began yesterday around noon. Patient states that in June 22 he was admitted for urinary obstruction and was found to have a right sized stone blocking drainage from the kidney. He reports that he had a stent placed by Dr. Leo. Patient reports that he is scheduled for lithotripsy on tomorrow however he began having the symptoms yesterday so he presented to the emergency department today. Patient reports that he has been taking Tylenol for the fever and aches. He reports yesterday his temperature was 101.5. He states that it comes down to 99 degrees with Tylenol administration. His last dose was 1 g of Tylenol at approximately 8 AM today. Patient denies any chest pain, shortness of breath, cough, nausea, vomiting, abdominal pain, issues with bowels, syncope or neurological deficit. Patient states that he has a longtime history of kidney stones so he monitors his diet to avoid triggers. Patient has been able to urinate this morning but states it was difficult thru the night. Related Data Home Medications Medication Instructions Recorded Confirmed potassium citrate 10 mEq (1,080 10 meq PO TID 10/01/19 07/12/21 mg) tablet,extended release multivitamin 1 cap PO DAILY 09/13/20 07/12/21 amitriptyline 10 mg PO HS 03/03/21 07/12/21 meloxicam 15 mg PO PRN PRN 03/03/21 07/12/21 metformin 2,000 mg PO QPM 03/03/21 07/12/21 Tylenol 650 mg PO TID PRN 04/16/21 07/12/21 gabapentin 300 mg PO TID 06/22/21 07/12/21 cholecalciferol (vitamin D3) 50 mcg PO DAILY 07/01/21 07/12/21 cyanocobalamin (vitamin B-12) 1,000 mcg PO DAILY 07/01/21 07/12/21 Allergies Allergy/AdvReac Type Severity Reaction Status Date / Time No Known Allergies Allergy Mild Verified 07/01/21 14:40 Review of Systems Review of Systems: CONSTITUTIONAL: Reports fatigue and fever denies chills, or sweats. EYES: Denies visual changes, redness, or discharge. ENT: Denies rhinorrhea, congestion, sore throat, or otalgia. CARDIOVASCULAR: Denies chest pain, palpitations, or edema. RESPIRATORY: Denies cough or dyspnea. GASTROINTESTINAL: Denies abdominal pain, nausea, vomiting, or diarrhea. GENITOURINARY: Reports urinary retention denies dysuria or hematuria. SKIN: Denies rash or itching. MUSCULOSKELETAL: Denies back pain, joint pain, or myalgia. NEUROLOGIC: Denies headache, numbness, dizziness, or weakness. PSYCHIATRIC: Denies anxiety or depression. [facility] Past Medical History Medical History Abnormal EKG Abnormal gait Acute right hip pain Acute urinary retention Acute UTI At high risk for falls BMI 25.0-25.9,adult 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 urinary tract symptoms PSA 0.4 on 06/08/2021 COVID-19 (06/10/20) Diabetes Diverticulosis DAVISON (dyspnea on exertion) High cholesterol Hypertension Lab test positive for detection of COVID-19 virus Microalbuminuria (06/08/21) microalbumin ratio of 61 on 06/08/2021 Neoplasm of skin of buttock (~06/02/21) 0.3 cm raised, erythematous papular lesion left upper buttocks in the midline Neoplasm of skin of cheek Seborrheic dermatitis Sepsis Skin cancer Urinary retention Vision changes Surgical History Surgical History History of cataract surgery History of fusion of cervical spine History of lumbar fusion S/P total hip arthroplasty Family History Family History Mother Patient's mother is , Onset Age: 89 Father Cerebrovascular accid
[2021-07-14 09:41] LABS: Add Urine Microscopic? YES; Appearance Urine Cloudy (Clear); Bilirubin Urine Negative (Negative); Blood Urine 2+ (Negative); Budding Yeast Urine Present /hpf; Color Urine Yellow (Yellow); Glucose Urine UA Negative (Negative); Ketones Urine Negative (Negative); Leukocyte Esterase Ur 3+ LEU/UL (Negative); Mucus Urine Rare /lpf; Nitrate Urine Negative (Negative); Protein Urine 2+ mg/dL (Negative); RBC Urine >75 /hpf (0-2); Specific Grav Ur 1.013 (1.001-1.035); Urobilinogen Urine Negative mg/dL (<2.0); WBC Urine >75 /hpf
[2021-07-14 10:15] LABS: Band Neutrophils Percent 5 % (0-6); Lymphocytes Absolute Manual 0.73 K/mm3 (1.1-4.5); Monocytes Absolute Manual 0.73 K/mm3 (0.1-0.90); Monocytes Percent Manual 5 % (3-9); Neutrophils Absolute Manual 13.23 K/mm3 (1.3-6.7); Neutrophils Percent Manual 85 % (46-73); Platelet Estimate Adequate (Adequate); Total Cells Counted 100
[2021-07-14 10:16] LABS: Atypical Lymphocytes Present
[2021-07-14 10:42] LABS: Lactic Acid Reflex 1.5 mmol/L (0.7-2.1)
[2021-07-14 10:42] LABS: Alanine Aminotransferase 14 U/L (4-50); Albumin Level 3.8 g/dL (3.5-5.1); Alkaline Phosphatase 101 U/L (38-126); Anion Gap 8 mmol/L (8-16); Aspartate Amino Transferase 22 U/L (17-59); Bilirubin,Total 0.8 mg/dL (0.2-1.3); Blood Urea Nitrogen 23 mg/dL (9-20); Calcium 8.9 mg/dL (8.4-10.2); Carbon Dioxide 25 mmol/L (22-30); Chloride 102 mmol/L (98-107); Estimated CRCL calculation 62 ml/min; Estimated Glomerular Filt Rate > 60; Glucose 182 mg/dL (65-110); Potassium 3.5 mmol/L (3.4-5.0); Sodium 135 mmol/L (137-145)
== END 2021-07-14 12:06 | disposition home or self-care (01) ==
PROVIDERS: Physician Assistant; Emergency Provider Emergency Medicine; PCP Family Medicine
DX: N39.0 Urinary tract infection, site not specified (principal); N13.2 Hydronephrosis with renal and ureteral calculous obstruction; Z86.16 Personal history of COVID-19; E78.00 Pure hypercholesterolemia, unspecified; I10 Essential (primary) hypertension; E11.9 Type 2 diabetes mellitus without complications; Z85.828 Personal history of other malignant neoplasm of skin; N40.1 Benign prostatic hyperplasia with lower urinary tract symptoms; R33.8 Other retention of urine; Z98.49 Cataract extraction status, unspecified eye; Z98.1 Arthrodesis status; Z96.649 Presence of unspecified artificial hip joint; K80.20 Calculus of gallbladder without cholecystitis without obstruction; Z79.84 Long term (current) use of oral hypoglycemic drugs
CPT/HCPCS: 36415; 74176; 80053; 81001; 83605; 85025; 87040; 87077; 87086; 87088; 87186; 96365; 99284; J0696

== ENCOUNTER 2021-07-22 02:10 | Day surgery (SDC) | payer MEDICARE, SELFPAY ==
[2021-07-01 15:06] VITALS: BMI 23.1
[2021-07-19 12:07] VITALS: BMI 22.5
--- NOTE | 2021-07-21 12:27 | WPDANESEPPF ---
Anes - Initial Pre Proc Eval Procedure: Operation Date: 07/22/21 11:00 Proposed Procedures p Right Extracorporeal Shock Wave Lithotripsy, - Kyle Albrecht MD s Cystoscopy with Right Stent Exchange - Kyle Albrecht MD Date/Time: 07/21/21 12:27 Surgeon: Reggie Wright MD Pre Op Diagnosis: right kidney stone Patient Data Age: 80 Gender: M Height: 1.98 m Weight: 88.45 kg Allergies Allergy/AdvReac Type Severity Reaction Status Date / Time No Known Allergies Allergy Mild Verified 07/22/21 09:51 Home Medications Medication Instructions Recorded Confirmed Type potassium citrate 10 mEq (1,080 10 meq PO TID 10/01/19 07/21/21 History mg) tablet,extended release multivitamin 1 cap PO DAILY 09/13/20 07/21/21 History amitriptyline 10 mg PO HS 03/03/21 07/22/21 History meloxicam 15 mg PO PRN PRN 03/03/21 07/21/21 History metformin 2,000 mg PO QPM 03/03/21 07/21/21 History docusate sodium 100 mg PO BID 30 Days #60 cap 03/17/21 07/21/21 Rx Tylenol 650 mg PO TID PRN 04/16/21 07/21/21 History blood sugar diagnostic #100 ea 04/21/21 07/21/21 Rx lancets 33 gauge #100 ea 04/21/21 07/21/21 Rx amlodipine 10 mg tablet 10 mg PO DAILY #90 tablet 05/13/21 07/22/21 Rx enalapril maleate 20 mg tablet 20 mg PO DAILY #90 tablet 05/23/21 07/21/21 Rx metoprolol succinate 100 mg 150 mg PO HS #135 tablet 05/23/21 07/22/21 Rx tablet,extended release 24 hr tamsulosin 0.4 mg capsule 0.4 mg PO HS #90 cap 06/14/21 07/21/21 Rx albuterol sulfate 1 inh INHALATION QID PRN #8.5 g 06/26/21 07/21/21 Rx benzonatate [Tessalon Perles] 100 mg PO BID PRN #20 cap 06/26/21 07/21/21 Rx ciprofloxacin HCl 500 mg tablet 500 mg PO Q12H #14 tablet 06/26/21 07/22/21 Rx atorvastatin 80 mg tablet 80 mg PO HS #90 tablet 06/30/21 07/22/21 Rx blood-glucose meter #1 ea 06/30/21 07/21/21 Rx cholecalciferol (vitamin D3) 50 mcg PO DAILY 07/01/21 07/21/21 History cyanocobalamin (vitamin B-12) 1,000 mcg PO DAILY 07/01/21 07/22/21 History ondansetron HCl 4 mg tablet 4 mg PO Q6H PRN #20 tablet 07/14/21 07/21/21 Rx fluticasone propionate 50 1 spray INTRANASAL BID #48 g 07/19/21 07/21/21 Rx mcg/actuation nasal spray,suspension levofloxacin [Levaquin] 750 mg PO DAILY 07/19/21 07/22/21 History gabapentin 300 mg capsule 300 mg PO . q.i.d. cap 07/21/21 07/21/21 History Patient hx anesthesia problems: none Family hx anesthesia problems: none [facility] Past Medical History Medical History (Updated 07/21/21 @ 15:49 by Kings Díaz MD) Abnormal EKG Abnormal gait Acute right hip pain Acute urinary retention Acute UTI Pseudomonas 07/15/2021 At high risk for falls BMI 23.0-23.9, adult BMI 25.0-25.9,adult 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 urinary tract symptoms PSA 0.4 on 06/08/2021 COVID-19 (06/10/20) Diabetes Diverticulosis DAVISON (dyspnea on exertion) High cholesterol Hypertension Lab test positive for detection of COVID-19 virus Microalbuminuria (06/08/21) microalbumin ratio of 61 on 06/08/2021 Nausea and vomiting Neoplasm of skin of buttock (~06/02/21) 0.3 cm raised, erythematous papular lesion left upper buttocks in the midline Neoplasm of skin of cheek Right adrenal mass (07/15/21) 2.[address] 07/15/2021 Right bundle branch block Seborrheic dermatitis Sepsis Skin cancer Urinary retention Vision changes Surgical History Surgical History History of cataract surgery History of fusion of cervical spine History of lumbar fusion S/P total hip arthroplasty Family History Family History Mother Patient's mother is , Onset Age: 89 Father Cerebrovascular accident, Onset Age: 73 Other Diabetes mellitus Heart disease Hypertension Social History Social History Smoking packs per day: 1 Smoking cigarettes per day: 20.0 Years smoked: 25
--- NOTE | ~2021-07-22 | XR_ITS ---
EXAMINATION: XR abdomen/kub 1V INDICATION: Nephrolithiasis TECHNIQUE: Supine views of the abdomen were obtained on 2 radiographs. COMPARISON: 07/14/2021 and 06/29/2021 FINDINGS: A right internal ureteral stent is in expected position. There is a 1.4 cm stone of the rig ht kidney lower pole. There are multiple stones of the left kidney which measure up to 2.7 cm in the lower pole. No stones are identified along the right internal ureteral stent, in the expected locatio n of the left ureter, or within the urinary bladder. There are phleboliths of the pelvis. Bowel anast omoses are noted in the midabdomen and left upper quadrant. There are changes of spinal fusion from L 4 through S1. A moderate volume of colonic stool is present. There is a right hip arthroplasty. IMPRESSION: 1. Bilateral nephrolithiasis. Right internal renal stent in expected position. Reviewed, dictated and finalized at location A.
[2021-07-22] MEDS: LACTATED RINGERS 1,000 ML 30 ML IV CONT ×2 (10:10→11:44)
[2021-07-22 10:11] LABS: Add Urine Microscopic? YES; Appearance Urine Clear (Clear); Bilirubin Urine Negative (Negative); Blood Urine 3+ (Negative); Color Urine Yellow (Yellow); Glucose Urine UA Negative (Negative); Ketones Urine Negative (Negative); Leukocyte Esterase Ur 1+ LEU/UL (NEGATIVE); Mucus Urine Rare /lpf; Nitrate Urine Negative (Negative); Protein Urine 1+ mg/dL (Negative); RBC Urine >75 /hpf (0-2); Specific Grav Ur 1.014 (1.001-1.035); Urobilinogen Urine Negative mg/dL (<2.0); WBC Urine 21-30 /hpf (0-3)
[2021-07-22 10:13] LABS: Glucose Point of Care 135 mg/dl (65-105)
[2021-07-22 10:15] VITALS: BP 136/75; PULSE 85; TEMP 36.3; O2SAT 99
--- NOTE | 2021-07-22 10:28 | WPDHPUPDATE1 ---
History and Physical Update Update Date/Time: 07/22/21 10:28 History and Physical has been reviewed, including an updated exam of the patient. There are NO changes in the patient's condition. Risks, benefits, and alternatives have been discussed and questions answered. Patient agrees to proceed with procedure. Proceed with cystoscopy right retrograde pyelogram right stent exchange, ESWL right renal calculus
[2021-07-22] MEDS: ceFAZolin 2 GM/D5W 50 ML 2 GM/50 ML BAG IVPB (10:48)
[2021-07-22] MEDS: LIDOCAINE HCL 2% GEL UROJET 10 ML PKG MUCOUS MEM (11:06)
--- NOTE | 2021-07-22 11:34 | W.PM.PROC2 ---
Procedure Note - Detailed Date of Procedure 07/22/21 Pre-op Diagnosis right kidney stone Post-op Diagnosis same Procedure Performed Cystoscopy, right stent exchange 4.8 [place] contour, ESWL right renal calculus Surgeon Kyle Albrecht MD Anesthesia general Description of Procedure Patient is taken to the operative suite correctly identified. The prior Maloney was removed. Sixteen [place] flexible scope was performed. Stent was grasped and brought out to the meatus. Guidewire was passed through the stent. We then exchanged the stent for a 4.8 [place] contour stent with proximal end coiled in the renal pelvis and the distal in the bladder. 2% viscous lidocaine was inserted urethra. The patient was repositioned in the right renal stone was localized. Two thousand five hundred shocks were given the stone. It is a fairly large dense stone will have to see how well it response. Sixteen [place] Maloney was reinserted at termination of procedure and 10 cc were placed in the balloon. Patient is taken recovery stable condition. He will follow up in 7-10 days with KUB. Will need to make a determination regarding Maloney catheter. Drains Yes Packing No Pathology none sent Complications No immediate complications Condition stable Disposition PACU
[2021-07-22 11:44] VITALS: BP 130/78; PULSE 84; RESP 12; TEMP 37; O2SAT 100
[2021-07-22 11:55] VITALS: BP 134/75; PULSE 88; RESP 18; O2SAT 97
[2021-07-22 11:59] LABS: Glucose Point of Care 121 mg/dl (65-105)
[2021-07-22 12:08] VITALS: BP 137/76; PULSE 86; RESP 20; O2SAT 97
[2021-07-22 12:11] VITALS: BP 131/75; PULSE 84; RESP 20
[2021-07-22 12:40] VITALS: BP 147/74; PULSE 81; RESP 18
--- NOTE | 2021-07-22 13:01 | SUR.PHASEII ---
1255 PT MEETS ANESTHESIA DISCHARGE CRITERIA. PT DRESSED AND WAITING FOR RIDE HOME.
== END 2021-07-22 13:03 | disposition home or self-care (01) ==
PROVIDERS: PCP Family Medicine; Visit Provider Urology
PROC: (CPT 50590; principal; 2021-07-22 11:00)
PROC: (CPT 52352; 2021-07-22 11:00)
DX: N20.0 Calculus of kidney (principal); I10 Essential (primary) hypertension; E78.00 Pure hypercholesterolemia, unspecified; E11.9 Type 2 diabetes mellitus without complications; N40.0 Benign prostatic hyperplasia without lower urinary tract symptoms; Z86.16 Personal history of COVID-19; Z98.1 Arthrodesis status; Z79.84 Long term (current) use of oral hypoglycemic drugs; Z79.51 Long term (current) use of inhaled steroids; Z87.891 Personal history of nicotine dependence
CPT/HCPCS: 52332; 50590; 36415; 74018; 81001; 82948; 85610; 85730; 87077; 87086; 87088; A9270; C1769; C2617; J0690; J1100; J2250; J2370; J2405; J2704; J3010; J7120

== ENCOUNTER 2021-07-27 13:32 | Outpatient (CLI) | payer MEDICARE, SELFPAY ==
--- NOTE | ~2021-07-27 | XR_ITS ---
EXAMINATION: XR abdomen/kub 1V DATE: 07/27/2021 14:01 INDICATION: Kidney stones. TECHNIQUE: A supine view of the abdomen on 2 radiographs was obtained. COMPARISON: CT abdomen and pelvis 07/14/2021 FINDINGS: There is a right internal ureteral stent in expected position. There is a cluster of innume rable overlapping stones in right kidney lower pole. There are least 6 stones in left kidney measurin g up to 2.4 cm. There is a total right hip arthroplasty. There are changes of posterior fusion proced ure from L3 to L5. IMPRESSION: 1. Bilateral kidney stones. 2. Right internal ureteral stent in expected position. Reviewed, dictated and finalized at location A.
== END 2021-07-27 13:33 | disposition home or self-care (01) ==
LOC: ANHIMG 13:36
PROVIDERS: PCP Family Medicine; Visit Provider Nurse Practitioner Adult Health
DX: N20.0 Calculus of kidney (principal); Z96.0 Presence of urogenital implants
CPT/HCPCS: 74018

== ENCOUNTER 2021-08-10 13:13 | Outpatient (CLI) | payer MEDICARE, SELFPAY ==
--- NOTE | ~2021-08-10 | XR_ITS ---
EXAMINATION: XR abdomen/kub 1V DATE: 08/10/2021 13:35 INDICATION: Right renal stone TECHNIQUE: A supine view of the abdomen on 2 radiographs was obtained. COMPARISON: CT dated 07/14/2021 and KUB dated 07/27/2021 FINDINGS: Right intrarenal stent remains in expected position. Slight decrease in size of a cluster of stone fr agments at the lower pole of the right kidney. No interval change in a couple additional stones in up per pole calyx of the right kidney, the larger measuring 7 mm . No interval change in several stones in the left kidney the largest measuring 2.[address] No stones seen along the course of the u reters. Additional postoperative change including instrumented L3-L5 posterior spinal fusion, right t otal hip arthroplasty and colonic anastomosis projecting over the central abdomen. Large amount of co lonic stool. No dilated loops of bowel to suggest obstruction. Couple phleboliths in the right hemipe lvis. Lung bases are clear. Heart size is normal. IMPRESSION: 1. Bilateral nephrolithiasis. 2. Right intrarenal stent in expected position. Reviewed, dictated and finalized at location B.
== END 2021-08-10 13:14 | disposition home or self-care (01) ==
LOC: ANHIMG 13:19
PROVIDERS: PCP Family Medicine; Visit Provider Urology
DX: N20.0 Calculus of kidney (principal); Z96.0 Presence of urogenital implants
CPT/HCPCS: 74018

== ENCOUNTER 2021-08-30 13:16 | Outpatient (CLI) | payer MEDICARE, SELFPAY ==
[2021-08-30 15:13] LABS: INR 0.9; Prothrombin Time 12.1 Seconds (11.1-14.7)
[2021-08-30 15:14] LABS: Partial Thromboplastin Time 31.3 SECONDS (22.3-36.8)
== END 2021-08-30 13:17 | disposition home or self-care (01) ==
LOC: ANHSURGERY 13:21
PROVIDERS: PCP Family Medicine; Visit Provider Urology
DX: Z01.812 Encounter for preprocedural laboratory examination (principal); N20.0 Calculus of kidney; Z51.81 Encounter for therapeutic drug level monitoring; Z79.899 Other long term (current) drug therapy
CPT/HCPCS: 36415; 85610; 85730; 87086

== ENCOUNTER 2021-09-02 01:12 | Day surgery (SDC) | payer MEDICARE, SELFPAY ==
[2021-08-26 12:12] VITALS: BMI 22.8
[2021-09-02] VITALS (9 sets, daily range): BP systolic 103–141; BP diastolic 71–87; PULSE 71–91; RESP 12–16; TEMP 36.7–36.8; O2SAT 93–98
--- NOTE | ~2021-09-02 | XR_ITS ---
EXAMINATION: XR abdomen/kub 1V DATE: 09/02/2021 08:53 INDICATION: Kidney stones. TECHNIQUE: A supine view of the abdomen on 2 radiographs was obtained. COMPARISON: Abdomen radiographs 08/10/2021, CT abdomen and pelvis 07/14/2021 FINDINGS: There are no dilated loops of bowel. There is a right internal ureteral stent in expected p osition. There are least 3 stones in right kidney measuring up to 7 mm. There are least 3 stones in l eft kidney measuring up to 2.5 cm. There are phleboliths in the pelvis. There are changes of posterio r fusion procedure in lumbar spine. There is a total right hip arthroplasty. IMPRESSION: 1. Stones in the kidneys. 2. Right internal ureteral stent in expected position. Reviewed, dictated and finalized at location A.
[2021-09-02] MEDS: LACTATED RINGERS 1,000 ML 30 ML IV CONT (09:20)
[2021-09-02 09:25] LABS: Glucose Point of Care 131 mg/dl (65-105)
--- NOTE | 2021-09-02 09:35 | WPDANESEPPF ---
Anes - Initial Pre Proc Eval Procedure: Operation Date: 09/02/21 10:30 Proposed Procedures p Repeat Right Renal Extracorporeal Shock Wave Lithotripsy - Kyle Albrecht MD s Cystoscopy, Possible Right Stent Placement - Kyle Albrecht MD Date/Time: 09/02/21 09:35 Surgeon: Kyle Albrecht MD Pre Op Diagnosis: Rt Renal Stone Patient Data Age: 80 Gender: M Height: 1.96 m Weight: 89.3 kg Allergies Allergy/AdvReac Type Severity Reaction Status Date / Time No Known Allergies Allergy Mild Verified 09/02/21 08:58 Home Medications Medication Instructions Recorded Confirmed Type potassium citrate 10 mEq (1,080 10 meq PO TID 10/01/19 09/02/21 History mg) tablet,extended release amitriptyline 10 mg PO HS 03/03/21 09/02/21 History meloxicam 15 mg PO PRN PRN 03/03/21 08/26/21 History metformin 1,000 mg PO BID 03/03/21 09/02/21 History docusate sodium 100 mg PO BID 30 Days #60 cap 03/17/21 09/02/21 Rx blood sugar diagnostic #100 ea 04/21/21 07/21/21 Rx lancets 33 gauge #100 ea 04/21/21 07/21/21 Rx amlodipine 10 mg tablet 10 mg PO DAILY #90 tablet 05/13/21 09/02/21 Rx enalapril maleate 20 mg tablet 20 mg PO DAILY #90 tablet 05/23/21 09/02/21 Rx metoprolol succinate 100 mg 150 mg PO HS #135 tablet 05/23/21 09/02/21 Rx tablet,extended release 24 hr tamsulosin 0.4 mg capsule 0.4 mg PO HS #90 cap 06/14/21 09/02/21 Rx atorvastatin 80 mg tablet 80 mg PO HS #90 tablet 06/30/21 09/02/21 Rx blood-glucose meter #1 ea 06/30/21 07/21/21 Rx cholecalciferol (vitamin D3) 50 mcg PO DAILY 07/01/21 09/02/21 History cyanocobalamin (vitamin B-12) 1,000 mcg PO DAILY 07/01/21 09/02/21 History fluticasone propionate 50 1 spray INTRANASAL BID #48 g 07/19/21 09/02/21 Rx mcg/actuation nasal spray,suspension gabapentin 300 mg PO QID 09/02/21 09/02/21 History Laboratory Tests 09/02/21 09:21 POC Capillary Glucose 131 mg/dl H mg/dl (65-105) Patient hx anesthesia problems: none Family hx anesthesia problems: none Results Review: All pre-operative results and documents have been reviewed as part of the pre-operative evaluation. [facility] Past Medical History Medical History (Updated 08/30/21 @ 08:11 by Kings Díaz MD) Abnormal EKG Abnormal gait Acute right hip pain Acute urinary retention Acute UTI Pseudomonas 07/15/2021 At high risk for falls BMI 23.0-23.9, adult BMI 25.0-25.9,adult 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 urinary tract symptoms PSA 0.4 on 06/08/2021 COVID-19 (06/10/20) Diabetes Diverticulosis DAVISON (dyspnea on exertion) High cholesterol Hypertension Lab test positive for detection of COVID-19 virus Microalbuminuria (06/08/21) microalbumin ratio of 61 on 06/08/2021 Nausea and vomiting Neoplasm of skin of buttock (~06/02/21) 0.3 cm raised, erythematous papular lesion left upper buttocks in the midline Neoplasm of skin of cheek Right adrenal mass (07/15/21) 2.[address] 07/15/2021 Right bundle branch block Screening for diabetic retinopathy (08/26/21) no diabetic retinopathy on 08/26/2021 Seborrheic dermatitis Sepsis Skin cancer Urinary retention Vision changes Surgical History Surgical History History of cataract surgery History of fusion of cervical spine History of lumbar fusion S/P total hip arthroplasty Family History Family History Mother Patient's mother is , Onset Age: 89 Father Cerebrovascular accident, Onset Age: 73 Other Diabetes mellitus Heart disease Hypertension Social History Social History Smoking packs per day: 1 Smoking cigarettes per day: 20.0 Years smoked: 15 Smoking pack-years: 15.00 Smoking status: Former smoker Tobacco type: cigarettes Second hand tobacco smoke exposure: No Smoking end date: 11/05/69 Additional smoking
--- NOTE | 2021-09-02 10:21 | WPDHPUPDATE1 ---
History and Physical Update Update Date/Time: 09/02/21 10:21 History and Physical has been reviewed, including an updated exam of the patient. There are NO changes in the patient's condition. Risks, benefits, and alternatives have been discussed and questions answered. Patient agrees to proceed with procedure. proceed with right renal ESWL
[2021-09-02] MEDS: ceFAZolin 2 GM/D5W 50 ML 2 GM/50 ML BAG IVPB (10:35)
--- NOTE | 2021-09-02 11:24 | W.PM.PROC2 ---
Procedure Note - Detailed Date of Procedure 09/02/21 Pre-op Diagnosis Rt Renal Stone Post-op Diagnosis same Procedure Performed ESWL right renal calculi-1500 shocks to upper pole stone, 1000 shocks to the lower pole Surgeon Kyle Albrecht MD Anesthesia general Description of Procedure Patient is taken the operative suite correctly identified. Once anesthesia was obtained the superior pole stone was localized. One thousand five hundred shocks were given the stone. We then repositioned the patient in 1000 shocks were given the lower mid pole stone. Patient tolerated procedure well without any complications and was taken recovery stable condition. He will follow up in a week's time for KUB and hopefully stent removal at that time Packing No Pathology none sent Complications No immediate complications Condition stable Disposition PACU
[2021-09-02 11:46] LABS: Glucose Point of Care 125 mg/dl (65-105)
== END 2021-09-02 13:15 | disposition home or self-care (01) ==
PROVIDERS: PCP Family Medicine; Visit Provider Urology
PROC: (CPT 50590; principal; 2021-09-02 10:30)
DX: N20.0 Calculus of kidney (principal); N40.1 Benign prostatic hyperplasia with lower urinary tract symptoms; N13.9 Obstructive and reflux uropathy, unspecified; Z79.84 Long term (current) use of oral hypoglycemic drugs; Z86.16 Personal history of COVID-19; E11.9 Type 2 diabetes mellitus without complications; K57.30 Diverticulosis of large intestine without perforation or abscess without bleeding; I10 Essential (primary) hypertension; E78.00 Pure hypercholesterolemia, unspecified; R80.9 Proteinuria, unspecified; I45.10 Unspecified right bundle-branch block; E27.9 Disorder of adrenal gland, unspecified; Z87.891 Personal history of nicotine dependence
CPT/HCPCS: 50590; 36415; 74018; 82948; 85610; 85730; 87086; A9270; J0690; J1100; J2250; J2405; J2704; J3010; J7030; J7120

== ENCOUNTER 2021-09-12 13:12 | Outpatient (CLI) | payer MEDICARE, SELFPAY ==
--- NOTE | ~2021-09-12 | XR_ITS ---
EXAMINATION: XR abdomen/kub 1V EXAM DATE: 09/12/2021 13:35 INDICATION: Right-sided kidney stone. TECHNIQUE: Frontal projection of the upper abdomen, frontal projection lower abdomen/pelvis for inter pretation. Comparison is made to prior examination from 09/02/2021. FINDINGS: There is a right-sided double-J ureteral stent in position. There may be some stone fragme nts in right inferior calyces. There is a large left calyceal stone, another smaller stone next to it . Lumbar hardware and right hip arthroplasty. Moderate amount of colonic stool and gas. There is no s ignificant interval change. IMPRESSION: Bilateral nephrolithiasis. Right stent in position. Reviewed, dictated and finalized at location A. 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
== END 2021-09-12 13:13 | disposition home or self-care (01) ==
LOC: ANHIMG 13:17
PROVIDERS: PCP Family Medicine; Visit Provider Urology
DX: N20.0 Calculus of kidney (principal); Z96.0 Presence of urogenital implants
CPT/HCPCS: 74018

== ENCOUNTER 2022-11-08 14:05 | Outpatient (CLI) | payer MEDICARE, SELFPAY ==
--- NOTE | ~2022-11-08 | XR_ITS ---
Supine and upright views of the abdomen Clinical history: Renal stone COMPARISON: 09/12/2021 Findings: Bowel gas pattern is nonspecific. No evidence for obstruction or free air. Bilateral renal stones are present, similar to prior exam. Largest stone at the left lower pole measures approximatel y 2 cm in diameter.. Stable lumbar spine fixation hardware and right hip arthroplasty noted.. Impression: Bilateral nephrolithiasis, similar to prior exam. Reviewed, dictated and finalized at location M. ROLL OPERATOR Impression: Bilateral nephrolithiasis, similar to prior exam.
== END 2022-11-08 14:06 | disposition home or self-care (01) ==
PROVIDERS: PCP Family Medicine; Visit Provider Urology
DX: N20.0 Calculus of kidney (principal)
CPT/HCPCS: 74018

== ENCOUNTER 2023-01-04 13:30 | Outpatient (RCR) | payer MEDICARE, SELFPAY ==
--- NOTE | 2022-12-07 14:56 | PTOPEVAL1 ---
Assessment and note entered by Saad Kramer, PT, DPT Evaluation Information Assessment Status Evaluation Diagnosis R hip pain, risk of falls Onset 1-2 years Subjective Information Pt states 2 years ago he had a R hip replacement that still gives him issues. He states he does not have great sensation in his R leg nor his R foot. He states he started to develop a R foot drop soon after his surgery. He denies any falls in the last 6 months. He does not use a device when in his home but outside of his home he uses a cane . He reports no hip pain, he reports a history of low back pain with a L3- S1 fusion, as well as C2- T1 fusion. He states he would like to improve his balance and safety. Reported Pain Level Pain Score 0: Self Report Assessment PT Clinical Summary Saravanan presents to physical therapy today for his initial evaluation with a diagnosis of R foot drop, hx of falls, and gait abnormalities. Today he demonstrates trace muscle activation of his ankle dorsiflexors on the R side, as well as very weak ankle eversion and plantarflexion. He demonstrates a moderated drop foot leading to a steppage gait on the R. He ambulates with a decreased gait speed and unsteadiness. Per standardized testing he is at an increased risk for falls. Skilled physical therapy services are indicated to improve balance, strength, safety, and to minimize fall risk. Plan of Care Interventions Check Out for Orthotic/Pr,Electrical Stimulation, Gait Training,Neuro Re-education,Patient/Caregiver Educati,Therapeutic Activities,Therapeutic Exercise PT Services Indicated Yes Treatment Frequency and 2x/wk for 4 wks Duration These treatments will address the objective and functional deficits as defined above. The patient will be advanced safely and appropriately in order for the patient to progress towards his/her prior level of function. Additional exercises will be introduced and as well as a comprehensive home exercise program upon discharge, if needed, ?to ensure carryover of functional gains achieved in the clinic. This treatment plan has been reviewed and agreement upon by the patient.
--- NOTE | 2023-01-04 14:12 | PTOPPROG ---
Assessment and note entered by Saad Kramer, PT, DPT Evaluation Information Assessment Status Progress Diagnosis R hip pain, risk of falls Onset 1-2 years Subjective Information Pt states he feels like he had made some good improvements. Pt states his balance is improving but still feels like he has to rely on his cane a lot. Assessment PT Clinical Summary Saravanan presents to therapy today for his progress report following 8 visits of skilled therapy to treat his R drop foot and decreased mobility. Today he demonstrates an improvement in his R ankle dorsiflexion strength to 2/5 and his hip strength grossly to 4+/5. He continues to have significant gait deviations and balance deficts secondary to his drop foot. He is getting an AFO in 2 weeks. Continuation of skilled physical therapy services are indicated following receiving his AFO to address balance and gait. Plan of Care Interventions Check Out for Orthotic/Pr,Electrical Stimulation, Gait Training,Neuro Re-education,Patient/Caregiver Educati,Therapeutic Activities,Therapeutic Exercise PT Services Indicated Yes Treatment Frequency and to return after AFO if needed Duration These treatments will address the objective and functional deficits as defined above. The patient will be advanced safely and appropriately in order for the patient to progress towards his/her prior level of function. Additional exercises will be introduced and as well as a comprehensive home exercise program upon discharge, if needed, ?to ensure carryover of functional gains achieved in the clinic. This treatment plan has been reviewed and agreement upon by the patient.
--- NOTE | 2023-02-23 15:08 | PCPTNOTE ---
Called and left voicemail for patient to follow up with progress after getting AFO.
--- NOTE | 2023-02-28 09:22 | PTOPDC ---
Assessment and note entered by Saad Kramer, PT, DPT Evaluation Information Assessment Status Discharge - Pt Not Present Diagnosis R hip pain, risk of falls Onset 1-2 years Subjective Information Pt called today to confirm he can be discharged. He received a AFO and states he is doing fine. Assessment PT Clinical Summary Saravanan completed 9 visits of skilled therapy of skilled therapy from 12/07/22 to 01/04/23. He will be discharged at this time.
== END 2023-02-28 13:23 | disposition home or self-care (01) ==
LOC: ANHGOSHPT 13:30
PROVIDERS: PCP Family Medicine; Visit Provider Family Medicine
DX: M21.379 Foot drop, unspecified foot (principal); R26.9 Unspecified abnormalities of gait and mobility; M16.9 Osteoarthritis of hip, unspecified; Z96.649 Presence of unspecified artificial hip joint; Z91.81 History of falling
CPT/HCPCS: 97110; 97112; 97162; 97530

== ENCOUNTER → 2025-03-25 09:57 | Outpatient (CLI) | payer MEDICARE, SELFPAY ==
--- NOTE | ~2025-03-25 | XR_ITS ---
Clinical Indication: Secondary polycythemia PA and lateral views of the chest: Comparison: 06/25/2021 Findings: The lungs are clear, without evidence of focal consolidation or pleural effusion. Cardiome diastinal silhouette is within normal limits. Bones and soft tissues are unremarkable. Impression: Normal chest. Reviewed, dictated and finalized at location . Impression: Normal chest.
--- OUTSIDE RECORDS SUMMARY | 2025-03-25 10:38 | XMS_ITS | Encounter Summary ---
Author Organization [facility] Address [address] [place] [id number] Phone Care Team Providers Care Facility Service Associate Name Role Phone Kings Díaz MD Primary Care Provider [phone] Reason for Visit * Reason Comments Med Refill Encounter Details Date Type Department Care Team (Late st Contact Info) Description 02/02/2020 Refill [facility] Nephrology and Hypertension [address] [place] [address], [address] [place] [address] Giuliano Greer MD [address] [facility], [address] [place] [address] Social History Tobacco Use Types Packs/Day Years Used Date Smoking Tobacco: Never Smokeless Tobacco: Never Alcohol Use Standard Drinks/Week Comments No 0 (1 standard drink = 0.6 oz pur e alcohol) Sex and Gender Information Value Date Recorded Sex Assigned at Not on file Legal Sex Male 7:43 AM MST Gender Identity Not on file Sexual Orientation Not on file documented as of this encounter Plan of Treatment Not on file documented as of this encounter Visit Diagnoses Not on filedocumented in this encounter Care Teams Facility Service Associate Relationship Specialty Start Date End Date Kings Díaz MD [address] [place] [id number] PCP - General Internal Medicine 02/11/19 documented as of this encounter
--- OUTSIDE RECORDS SUMMARY | 2025-03-25 10:38 | XMS_ITS | Continuity of Care Document ---
Author Organization [facility] [place] Address [address] [place] [address] Phone Care Team Providers Care Red Hat Engineer Name Role Phone Velasquez Zavala MD, FACS Unavailable Unavailab le Allergies, Adverse Reactions, Alerts Substance Reaction Status Criticality No Known Allergies Active No Inform ation Medications Medication Instructions Dosage Effective Dates (start - stop) Status Comments metoprolol succinate ER 100 mg tablet,extended release 24 hr take 1 tablet by oral route every day 100 MG - Active atorvastatin 80 mg tablet take 1 tablet by oral route every day 80 MG - Active fluticasone propionate 50 mcg/actuation nasal spray,suspension spray 1 - 2 spray by intranasal route every day in each nostril as needed 50-100 MCG - Active amitriptyline 10 mg tablet take 1 tablet by oral route 3 times every day 10 MG - Active meloxicam 15 mg tablet take 1 tablet by oral route every day 15 MG - Active tamsulosin 0.4 mg capsule take 1 capsule by oral route every day 1/2 hour following the same meal each day 0.4 MG - Active enalapril maleate 20 mg tablet take 2 tablet by ORAL route every day 40 MG - Active amlodipine 10 mg tablet take 1 tablet by oral route every day 10 MG - Active gabapentin 300 mg capsule take 1 capsule by oral route 3 times every day 300 MG - Active potassium citrate ER 10 mEq (1,080 mg) tablet,extended release take 1 tablet by oral route 3 times every day 10 MEQ - Active metformin 500 mg tablet take 1 tablet by oral route 2 times every day with morning and evening meals 500 MG - Active B Complex 1 (with folic acid) 0.4 mg tablet take 1 capsule by oral route every day 1 capsule - Active Procedures Procedure Date After Cataract Laser Surgery No Charge Refraction Fundus Photography W/ Report Office/outpatient Visit, Est After Cataract Laser Surgery No Charge Refraction Fundus Photography W/ Report Office/outpatient Visit, Est Remove Cataract, Insert Lens IOLMaster-Professional Remove Cataract, Insert Lens IOLMaster-Professional No Charge Optomap Fundus Photos No Charge Refraction IOLMaster-Technical No Charge GDX Retina Corneal Topography Eye Exam, New Patient Advance Directives Directive Yes / No Effective Date File Name No Information Encounters Encounter Description Practice Location Reason(s) For Visit Diagnoses Date Provider Providers Copied on Encounter [facility], [address] [place] [address] [address], [place], [place], [id number], [place] tel:[phone] [facility] No Information 2 Sally Eng. [address], [place], [place], [address], [place]. tel:[phone] Referring Provider: Kurt Atkinson OD F, [address] [facility] [address], [place], [address]. tel:[phone] Office/outpa tient Visit, Est [facility], [address], [place], [place], [id number], [place] tel:[phone] [facility] [place] YAG PC (chief complaint) Other secondary cataract, right eyePresence of intraocular lensType 2 diabetes mellitus without complications 2 Sally Eng. [address], [place], [place], [address], . tel:[phone] Referring Provider: Kurt Atkinson OD F, [address] [facility] [address], [place], [address]. tel:[phone] [facility], [address] [place] [address] [address], [place], [place], [address], [place] tel:[phone] [facility] No Information 2 Mason Velasquez. [address] [place] [address], [address], [place], [place], [address], [place]. tel:[phone] Referring Provider: Kurt Atkinson OD F, [address] [facility] [address], [place], [address]. tel:[phone] [place]pa [place]ient Visit, [facility] [address], [place], [place], [address], [place] tel:[phone] [facility] [place] YAG Capsulotomy evaluation (chief complaint) PCO (posterior capsular opacification), bilateralType 2 diabetes mellitus without complications [address] [place] [address], [address], [place], [place], [address], [place]. tel:[phone] Referring Provider: Kurt Atkinson OD F, [address] [facility] [address], [place], [address]. tel:[phone] [facility], [address] [place] [address] [address], [place], [place], [address], [place] tel:[phone] [facility] No Information 0 Mason Velasquez. [address] [place] [address], [address], [place], [place], [address], [place]. tel:[phone] Referring Provider: Kurt Atkinson OD F, [address] [facility] [address], [place], [address]. tel:[phone] [facility], [address], [place], [place], [address], [place] tel:[phone] [facility] [place] No Information 0 Sally Velasquez. [address] [place] [address], [address], [place], [place], [address], . tel:[phone] Referring Provider: Kurt Atkinson OD F, [address] [facility] [address], [place], [place], [facility]. tel:[phone] [facility], [address] [place] [address] [address], [place], [place], [address], tel:[phone] [facility] No Information 0 Mason Velasquez. [address] [place] [address], [address], [place], [place], [address], . tel:[phone] Referring Provider: Kurt Atkinson OD F, [address] [facility] [address], [place], [facility]. tel:[phone] [facility], [address] [place] [address] [address], [place], [place], [address], tel:[phone] [facility] [place] No Information 0 Sally Velasquez. [address] [place] [address], [address], [place], [place], [address], . tel:[phone] Referring Provider: Kurt Atkinson OD F, [address] [facility] [address], [place], [facility]. tel:[phone] [facility], [address] [place] [address] [address], [place], [place], [address], tel:[phone] [facility] [place] cataract (chief complaint) Combined forms of age-related cataract, bilateralArcus senilis of both eyesType 2 diabetes mellitus without complications 0 Mason Velasquez. [address] [place] [address], [address], [place], [place], [address], . tel:[phone] Referring Provider: Kurt Atkinson OD F, [address] [facility] [address], [place], [facility]. tel:[phone] Family History Family Member Type Diagnosis Age At Onset No Information Payers Payer name Insurance type Covered green party ID Carmita [facility]ier[id number] Social History Type Description Quantity Date Captured Comments Sex Male Smoking Status No Information Chief Complaint And Reason For Visit No Information Reason For Referral Reason For Referral No Information Plan Of Treatment Date Type Action Status Goal Tobacco cessation counseling completed Goal Tobacco cessation counseling completed Patient Education Learning About YAG Lase r Capsulotomy completed Patient Education Learning About YAG Lase r Capsulotomy completed Patient Education Type 2 Diabetes: Care I nstructions completed Patient Education Cataract Surgery: What to Expect at H~ completed History Of Present Illness Encounter Date Complaint History Of Prese nt Illness YAG PC The 82 year old patient presents for evaluation of YAG PC in the right eye. Patient he noticed over the last couple of month his VA in his right eye is foggy. Patient avoids driving at night due to VA in his right eye, has difficulty seeing road signs. Patient is a Type 2 diab, BS checked a couple of weeks ago @ 132, a1c 7.0, and PCP treats his diab. YAG Capsulotomy evaluation The [age] year old patient presents for evaluation of YAG Capsulotomy evaluation in the right eye and left eye. Pt. has h/o PC/IOL OU. Pt. is NIDDM II followed by Dr. Díaz. Pt's last HA1C was 6.8. Pt. states saw Dr. Atkinson about 6 months ago and was told his Left lens was getting a little cloudy. Pt. has noticed since more difficulty with OS seeming more cloudy. Pt. feels OS having more trouble seeing to watch tv or see people across the street. Pt. also having more difficulty seeing small print with OS. cataract The 79 year old male presents for evaluation of cataract in the right eye and left eye. Pt states that his vision OD is very blurry over last few months. He avoids driving at night, has difficulty with fine print and doing close work such as threading a needle. Dr Kurt Atkinson referred pt for evaluation of OD yaa. His vision OS is great. He says it is clear and stable OS. Functional Status Date Functional Assessmen t No Information Instructions Date Instruction Additional Infor yaniv Impression/Plan Impression/Plan Impression/Plan Assessments Type Assessment Date No Information Patient Care Teams Name Effective Dates (start - stop) Status Members No Information
--- OUTSIDE RECORDS SUMMARY | 2025-03-25 10:38 | XMS_ITS | Clinical Summary ---
Author Organization [facility] Address [address] [place] [address] Phone Care Team Providers Care Slaughterer Religious Ritual Name Role Phone Kings Díaz MD Primary Care Provider [phone] Allergies No known active allergies Medications amitriptyline (ELAVIL) 10 MG tablet 02/24/2020 Active amLODIPine (NORVASC) 10 MG tablet 03/23/2020 Active atorvastatin (LIPITOR) 80 MG tablet 03/23/2020 Active enalapril (VASOTEC) 20 MG tablet 03/04/2020 Active fluticasone (FLONASE) 50 MCG/ACT nasal spray 03/23/2020 Active gabapentin (NEURONTIN) 300 MG capsule 04/09/2020 Active metFORMIN XR (GLUCOPHATE-XR) 500 MG 24 hr tablet 03/23/2020 Active metoprolol succinate XL (TOPROL-XL) 100 MG 24 hr tablet 03/04/2020 Act sean tamsulosin (FLOMAX) 0.4 MG 24 hr capsule 03/04/2020 Activ e Lancets (OneTouch Delica Plus Hckeif40M) misc 04/29/2022 Active potassium citrate (UROCIT-K) 10 MEQ (1080 MG) CR tablet TAKE 1 TABLET BY MOUTH 3 TIMES DAILY WITH MEALS 300 tablet 2 09/10/2022 Active Active Problems Problem Noted Date Diagnosed Date Other hyperlipidemia 04/11/2016 Overview (01/18/2019): Converted unresolved ICD9, potential mismatch. Type 2 diabetes mellitus without complication Essential (primary) hypertension 05/28/2012 Calculus of kidney 05/28/2012 Immunizations Immunization Administration Dates Next Due Fluzone High-Dose 09/23/2020 Influenza TIV (IM) 12/09/2014 Moderna Sars-cov-2 Vaccination 09/01/2021,2020,12/08/2020 Pneumococcal Conjugate 13-Valent 08/13/2018,02/03 Pneumococcal Polysaccharide 08/29/2019 Family History Medical History Relation Comments Kidney stone Father Kidney stone Sibling Kidney disease Neg Hx Relation Status Comments Father Sibling Social History Tobacco Use Types Packs/Day Years Used Date Smoking Tobacco: Never Smokeless Tobacco: Never Alcohol Use Standard Drinks/Week Comments No 0 (1 standard drink = 0.6 oz pur e alcohol) Sex and Gender Information Value Date Recorded Sex Assigned at Not on file Legal Sex Male 7:43 AM [facility] Gender Identity Not on file Sexual Orientation Not on file Last Filed Vital Signs Vital Sign Reading Time Taken Comments Blood Pressure 134/70 06/28/2022 10:10 AM CDT Pulse - - Temperature 36.3 C (97.3 F) 06/28/2022 10:10 AM CDT Respiratory Rate 18 06/28/2022 10:10 AM CDT Oxygen Saturation - - Inhaled Oxygen Concentration - - Weight 93 kg (205 lb) 06/28/2022 10:10 AM CDT Height 195.6 cm (6' 5 ) 06/28/2022 10:10 AM CDT Body Mass Index 24.31 06/28/2022 10:10 AM CDT Plan of Treatment Health Maintenance Due Date Last Done Comments COVID-19 Vaccine ( season) 2024 09/01/2021, 01/18/2021, 12/08/2020 Influenza Vaccine (Season Ended) 2025 12/09/19 15 Pneumococcal PPSV23/PCV13 65 + Years / Low and Medium Risk Completed 08/29/2019, 08/13/2018, 02/14/2017 Insurance [employer] Member Subscriber Plan / Payer (Ef fective 2018-Present) Name:Saravanan Ralph Mia Relation to Subscriber:Self Name:Saravanan Ralph Mia Payer ID:[id number] Type:Not on file Address: [place] [id number] Care Teams Slaughterer Religious Ritual Relationship Specialty Start Date End Date Kings Díaz MD [address] [place] [id number] PCP - General Internal Medicine 02/11/19
--- OUTSIDE RECORDS SUMMARY | 2025-03-25 10:38 | XMS_ITS | Clinical Summary ---
Author Organization [facility] [address] [place] [address] Address [address] [place] [address] Care Team Providers Care Log Loader Name Role Phone Chris Presley MD Primary Care Provider [phone] Medications No known medications Active Problems No known active problems Social History Tobacco Use Types Packs/Day Years Used Date Smoking Tobacco: Never Assessed Sex and Gender Information Value Date Recorded Sex Assigned at Not on file Legal Sex Male 3:39 PM [employer] Gender Identity Not on file Sexual Orientation Not on file Plan of Treatment Health Maintenance Due Date Last Done Comments DIABETES ANNUAL FOOT EXAM 1960 DIABETES ANNUAL RETINAL EXAM 1960 DIABETES MICROALBUMIN ANNUAL SCREEN 1960 LDL CHOLESTEROL ANNUAL 1960 DTAP/TDAP/TD VACCINES (1 - Tdap) 1961 ZOSTER VACCINE (1 of 2) 1992 RSV VACCINE (60+ or ) (1 - 1-dose 75+ series) 2017 DIABETES HBA1C Q 6 MONTHS 10/27/2020 04/27/2020 INFLUENZA VACCINE (#1) 2024 09/23/2020, 2014 PNEUMOCOCCAL VACCINE 50+ YEARS Completed 1 , 08/13/2018, 02/14/2017 Insurance [facility] [id number] Care Teams Log Loader Relationship Specialty Start Date End Date Chris Presley MD [address] [facility] [address] [place] [address] PCP - General Orthopedic Surgery 09/15/20
== END ==
LOC: EXPTRAD 09:59
PROVIDERS: PCP Family Medicine; Visit Provider Family Medicine
DX: D75.1 Secondary polycythemia (principal)
CPT/HCPCS: 71046